=== PATIENT | male | born 1965 | race Caucasian/White ===

== ENCOUNTER 2020-06-24 10:25 | Outpatient (REF) | payer OTHER, SELFPAY ==
[2020-06-24 11:43] LABS: Hematocrit 39.9 % (42-52); Hemoglobin 13.5 g/dl (14.0-18.0); Mean Corpuscular HGB Conc 33.8 g/dl (31.0-36.0); Mean Corpuscular Hemoglobin 29.6 pg (27.0-33.0); Mean Corpuscular Volume 87.5 fL (80-98); Mean Platelet Volume 9.4 fL (9.4-12.4); Platelet Count 275 X10*3/uL (160-400); Red Blood Count 4.56 X10*6/uL (4.60-5.80); Red Cell Distribution Width 14.2 % (11.0-16.0)
[2020-06-24 12:18] LABS: Creatinine Urine 150.97 mg/dL; Microalbum/Creatinine Ratio Ur 4.6 ug/mg cr
[2020-06-24 12:21] LABS: Alanine Aminotransferase 22 U/L (0-40); Alkaline Phosphatase 124 U/L (39-117); Anion Gap 13 (12-20); Aspartate Amino Transferase 17 U/L (5-37); Bilirubin Total 0.7 mg/dL (0.0-1.0); Blood Urea Nitrogen 16 mg/dL (9-16); Calcium 8.6 mg/dL (8.4-10.2); Carbon Dioxide 27 mmol/L (22-29); Chloride 103 mmol/L (96-108); Cholesterol 155 mg/dL; Estimated Glomerular Filt Rate > 60; Glucose Fasting 99 mg/dL (60-99); HDL Cholesterol 47 mg/dL; LDL Cholesterol Calculated 77 mg/dl; Potassium 4.4 mmol/L (3.3-5.1); Sodium 139 mmol/L (135-145); Total Protein 7.2 g/dL (6.5-8.0); Triglycerides 157 mg/dL
[2020-06-24 12:23] LABS: Estimated Average Glucose 131 mg/dL; Hemoglobin A1c % 6.2 %
[2020-06-24 12:38] LABS: Prostate Specific Antigen Scr 0.22 ng/mL (<0.05-4.0); TSH reflex Free T4 3.52 mIU/mL (0.32-4.0)
== END 2020-06-24 10:26 | disposition home or self-care (01) ==
LOC: HO.LAB 10:25
PROVIDERS: PCP Physician Assistant; Visit Provider Physician Assistant
DX: E11.9 Type 2 diabetes mellitus without complications (principal); Z12.5 Encounter for screening for malignant neoplasm of prostate; I10 Essential (primary) hypertension
CPT/HCPCS: 36415; 80053; 80061; 82043; 83036; 84153; 84443; 85027

== ENCOUNTER → 2020-08-02 08:30 | Outpatient (BNVA) | payer OTHER, SELFPAY | PROVIDERS: PCP Physician Assistant; Visit Provider Surgery | DX: Z01.818 Encounter for other preprocedural examination (principal); E66.01 Morbid (severe) obesity due to excess calories; Z68.42 Body mass index [BMI] 45.0-49.9, adult; R06.02 Shortness of breath | CPT/HCPCS: 99202 ==

== ENCOUNTER 2020-08-02 11:04 | Outpatient (REF) | payer OTHER, SELFPAY ==
[2020-08-02 12:26] LABS: Hematocrit 41.3 % (42-52); Mean Corpuscular HGB Conc 33.9 g/dl (31.0-36.0); Mean Corpuscular Hemoglobin 29.7 pg (27.0-33.0); Mean Corpuscular Volume 87.7 fL (80-98); Mean Platelet Volume 9.7 fL (9.4-12.4); Platelet Count 302 X10*3/uL (160-400); Red Blood Count 4.71 X10*6/uL (4.60-5.80); Red Cell Distribution Width 13.6 % (11.0-16.0); White Blood Count 9.8 X10*3/uL (4.8-10.8)
[2020-08-02 13:12] LABS: Vitamin D 25-OH Total 41.3 ng/mL (>30)
[2020-08-02 13:29] LABS: Vitamin B12 461 pg/mL (200-900)
[2020-08-02 14:12] LABS: Estimated Average Glucose 128 mg/dL; Hemoglobin A1c % 6.1 %
[2020-08-02 14:41] LABS: TSH reflex Free T4 6.28 uIU/mL (0.32-4.0)
[2020-08-02 14:46] LABS: Alanine Aminotransferase 21 U/L (0-40); Albumin Level 4.2 g/dL (3.5-5.0); Alkaline Phosphatase 130 U/L (39-117); Anion Gap 17 (12-20); Aspartate Amino Transferase 16 U/L (5-37); Bilirubin Total 0.3 mg/dL (0.0-1.0); Blood Urea Nitrogen 17 mg/dL (9-16); Carbon Dioxide 23 mmol/L (22-29); Chloride 106 mmol/L (96-108); Cholesterol 138 mg/dL; Estimated Glomerular Filt Rate > 60; Glucose Fasting 105 mg/dL (60-99); HDL Cholesterol 43 mg/dL; Iron 82 mcg/dL (45-160); LDL Cholesterol Calculated 54 mg/dl; Percent Iron Saturation 32 % (15-50); Potassium 4.5 mmol/L (3.3-5.1); Sodium 141 mmol/L (135-145); Total Iron Binding Capacity 253 mcg/dL (228-428); Total Protein 7.6 g/dL (6.5-8.0); Triglycerides 205 mg/dL; Unsaturated Iron Binding 171 ug/dL
[2020-08-02 15:15] LABS: Free T4 (Free Thyroxine) 0.94 ng/dL (0.71-1.85)
[2020-08-05 00:47] LABS: Zinc 80 mcg/dL (60-130)
[2020-08-07 11:21] LABS: Vitamin B1 18 nmol/L (8-30)
[2020-08-08 03:32] LABS: Vitamin A 53 mcg/dL (38-98)
== END 2020-08-02 11:05 | disposition home or self-care (01) ==
LOC: HO.10HDL 11:04
PROVIDERS: Absent Provider Physician Assistant; Visit Provider Surgery
DX: Z01.818 Encounter for other preprocedural examination (principal); E11.9 Type 2 diabetes mellitus without complications; I10 Essential (primary) hypertension; E66.01 Morbid (severe) obesity due to excess calories
CPT/HCPCS: 36415; 80053; 80061; 82306; 82607; 83036; 83540; 84425; 84439; 84443; 84590; 84630; 85027

== ENCOUNTER → 2020-08-12 10:26 | Outpatient (BNVA) | payer OTHER, SELFPAY | PROVIDERS: PCP Physician Assistant; Visit Provider Dietitian, Registered ==

== ENCOUNTER → 2020-08-22 14:05 | Outpatient (BNVA) | payer OTHER, SELFPAY | PROVIDERS: PCP Physician Assistant; Visit Provider Surgery | DX: E66.01 Morbid (severe) obesity due to excess calories (principal); Z68.42 Body mass index [BMI] 45.0-49.9, adult | CPT/HCPCS: 99212 ==

== ENCOUNTER → 2020-12-12 12:32 | Outpatient (BNVA) | payer OTHER, SELFPAY | PROVIDERS: PCP Physician Assistant; Referring Provider Physician Assistant; Visit Provider Physician Assistant | DX: E66.01 Morbid (severe) obesity due to excess calories (principal); Z68.42 Body mass index [BMI] 45.0-49.9, adult | CPT/HCPCS: 99212 ==

== ENCOUNTER → 2021-01-09 08:32 | Outpatient (BNVA) | payer OTHER, SELFPAY | PROVIDERS: PCP Physician Assistant; Referring Provider Physician Assistant; Visit Provider Dietitian, Registered | DX: E66.01 Morbid (severe) obesity due to excess calories (principal); Z68.42 Body mass index [BMI] 45.0-49.9, adult | CPT/HCPCS: 97803 ==

== ENCOUNTER → 2021-02-27 09:24 | Outpatient (BNVA) | payer OTHER, SELFPAY | PROVIDERS: PCP Physician Assistant; Referring Provider Physician Assistant; Visit Provider Physician Assistant Surgical | DX: E66.01 Morbid (severe) obesity due to excess calories (principal); Z68.42 Body mass index [BMI] 45.0-49.9, adult | CPT/HCPCS: 99212 ==

== ENCOUNTER 2021-02-27 10:35 | Outpatient (REF) | payer OTHER, SELFPAY ==
[2021-02-27 14:11] LABS: MANUAL DIFF FLAG NO
[2021-02-27 14:16] LABS: Basophils Absolute Auto 0.1 X10*3/uL (0.0-0.2); Basophils Percent Auto 0.6 % (0-2); Eosinophils Absolute Auto 0.3 X10*3/uL (0.0-0.4); Eosinophils Percent Auto 3.1 % (0-4); Hemoglobin 13.6 g/dl (14.0-18.0); Imm Gran Abs Auto 0.09 X10*3/uL (0.00-0.03); Lymphocytes Absolute Auto 2.7 X10*3/uL (1.2-4.9); Lymphocytes Percent Auto 29.4 % (20-40); Mean Corpuscular HGB Conc 33.2 g/dl (31.0-36.0); Mean Corpuscular Hemoglobin 29.3 pg (27.0-33.0); Mean Corpuscular Volume 88.4 fL (80-98); Mean Platelet Volume 9.5 fL (9.4-12.4); Monocytes Absolute Auto 0.8 X10*3/uL (0.1-1.2); Neutrophils Absolute Auto 5.3 X10*3/uL (2.0-8.3); Neutrophils Percent Auto 56.9 % (45-73); Platelet Count 318 X10*3/uL (160-400); Red Blood Count 4.64 X10*6/uL (4.60-5.80); Red Cell Distribution Width 14.2 % (11.0-16.0); White Blood Count 9.3 X10*3/uL (4.8-10.8)
[2021-02-27 14:38] LABS: Alanine Aminotransferase 47 U/L (0-40); Albumin Level 4.1 g/dL (3.5-5.0); Anion Gap 14 (12-20); Aspartate Amino Transferase 26 U/L (5-37); C Reactive Protein 0.59 mg/dL (< or = 0.50); Carbon Dioxide 25 mmol/L (22-29); Chloride 105 mmol/L (96-108); Estimated Glomerular Filt Rate > 60; Potassium 4.8 mmol/L (3.3-5.1); Sodium 139 mmol/L (135-145)
[2021-02-27 14:48] LABS: Alkaline Phosphatase 115 U/L (39-117); Bilirubin Total 0.2 mg/dL (0.0-1.0); Blood Urea Nitrogen 15 mg/dL (9-16); Calcium 9.1 mg/dL (8.4-10.2); Cholesterol 179 mg/dL; Glucose Fasting 114 mg/dL (60-99); HDL Cholesterol 54 mg/dL; LDL Cholesterol Calculated 91 mg/dl; Total Protein 7.5 g/dL (6.5-8.0); Triglycerides 172 mg/dL
[2021-02-27 14:54] LABS: Erythrocyte Sedimentation Rate 31 MM/HR (0-15)
[2021-02-27 15:01] LABS: Creatinine Urine 185.77 mg/dL; Microalbum/Creatinine Ratio Ur 4.8 ug/mg cr
[2021-02-27 15:08] LABS: TSH reflex Free T4 2.92 uIU/mL (0.32-4.0)
== END 2021-02-27 10:36 | disposition home or self-care (01) ==
LOC: HO.10HDL 10:35
PROVIDERS: Absent Provider Internal Medicine; Visit Provider Physician Assistant
DX: Z51.81 Encounter for therapeutic drug level monitoring (principal); E03.9 Hypothyroidism, unspecified; Z79.899 Other long term (current) drug therapy
CPT/HCPCS: 36415; 80051; 80053; 80061; 82040; 82043; 82565; 84443; 84450; 84460; 85025; 85027; 85652; 86140

== ENCOUNTER → 2021-05-01 08:19 | Outpatient (BNVA) | payer OTHER, SELFPAY | PROVIDERS: PCP Physician Assistant; Visit Provider Physician Assistant Surgical ==

== ENCOUNTER 2022-01-23 10:48 | Outpatient (REF) | payer OTHER, SELFPAY ==
[2022-01-23 13:51] LABS: Hematocrit 45.9 % (42.0-52.0); Hemoglobin 15.2 g/dl (14.0-18.0); Mean Corpuscular HGB Conc 33.1 g/dl (31.0-36.0); Mean Corpuscular Hemoglobin 28.5 pg (27.0-33.0); Mean Corpuscular Volume 86.1 fL (80.0-98.0); Mean Platelet Volume 10.4 fL (9.4-12.4); Platelet Count 238 X10*3/uL (160-400); Red Blood Count 5.33 X10*6/uL (4.60-5.80); Red Cell Distribution Width 14.2 % (11.0-16.0); White Blood Count 8.8 X10*3/uL (4.8-10.8)
[2022-01-23 14:03] LABS: C Reactive Protein 0.41 mg/dL (< or = 0.50)
[2022-01-23 14:12] LABS: Alanine Aminotransferase 20 U/L (0-40); Albumin Level 4.1 g/dL (3.5-5.0); Alkaline Phosphatase 93 U/L (39-117); Anion Gap 17 (12-20); Aspartate Amino Transferase 15 U/L (5-37); Bilirubin Total 0.5 mg/dL (0.0-1.0); Blood Urea Nitrogen 15 mg/dL (9-16); Calcium 9.1 mg/dL (8.4-10.2); Carbon Dioxide 25 mmol/L (22-29); Chloride 103 mmol/L (96-108); Cholesterol 181 mg/dL; Estimated Glomerular Filt Rate > 60; Glucose Fasting 114 mg/dL (60-99); HDL Cholesterol 49 mg/dL; LDL Cholesterol Calculated 102 mg/dl; Potassium 4.6 mmol/L (3.3-5.1); Sodium 140 mmol/L (135-145); Total Protein 7.7 g/dL (6.5-8.0); Triglycerides 154 mg/dL
[2022-01-23 14:26] LABS: Prostate Specific Antigen Scr 0.22 ng/mL (<0.05-4.0); TSH reflex Free T4 2.34 uIU/mL (0.32-4.0)
[2022-01-23 14:27] LABS: Vitamin D 25-OH Total 31.4 ng/mL (>30)
[2022-01-23 14:37] LABS: Erythrocyte Sedimentation Rate 34 MM/HR (0-15)
[2022-01-23 14:56] LABS: Folate 14.7 ng/mL (> or = 4.0); Vitamin B12 352 pg/mL (200-900)
== END 2022-01-23 10:49 | disposition home or self-care (01) ==
LOC: HO.10HDL 10:48
PROVIDERS: Absent Provider Nurse Practitioner Family; Referring Provider Internal Medicine; Visit Provider Physician Assistant
DX: Z12.5 Encounter for screening for malignant neoplasm of prostate (principal); E11.9 Type 2 diabetes mellitus without complications; I10 Essential (primary) hypertension; Z79.899 Other long term (current) drug therapy
CPT/HCPCS: 36415; 80053; 80061; 82306; 82607; 82746; 84153; 84443; 85027; 85652; 86140

== ENCOUNTER 2022-03-13 08:46 | Outpatient (REF) | payer OTHER, SELFPAY ==
[2022-03-13 11:24] LABS: Hematocrit 42.7 % (42.0-52.0); Hemoglobin 14.4 g/dl (14.0-18.0); Mean Corpuscular HGB Conc 33.7 g/dl (31.0-36.0); Mean Corpuscular Hemoglobin 29.8 pg (27.0-33.0); Mean Corpuscular Volume 88.4 fL (80.0-98.0); Mean Platelet Volume 9.4 fL (9.4-12.4); Platelet Count 316 X10*3/uL (160-400); Red Blood Count 4.83 X10*6/uL (4.60-5.80); Red Cell Distribution Width 15.3 % (11.0-16.0); White Blood Count 9.8 X10*3/uL (4.8-10.8)
[2022-03-13 11:33] LABS: Estimated Average Glucose 151 mg/dL; Hemoglobin A1c % 6.9 %
[2022-03-13 12:01] LABS: Alanine Aminotransferase 19 U/L (0-40); Albumin Level 4.1 g/dL (3.5-5.0); Alkaline Phosphatase 93 U/L (39-117); Anion Gap 16 (12-20); Aspartate Amino Transferase 16 U/L (5-37); Bilirubin Total 0.7 mg/dL (0.0-1.0); Blood Urea Nitrogen 21 mg/dL (9-16); Calcium 9.1 mg/dL (8.4-10.2); Carbon Dioxide 25 mmol/L (22-29); Chloride 102 mmol/L (96-108); Estimated Glomerular Filt Rate > 60; Glucose Fasting 112 mg/dL (60-99); Potassium 4.4 mmol/L (3.3-5.1); Sodium 139 mmol/L (135-145); Total Protein 7.4 g/dL (6.5-8.0)
[2022-03-13 12:07] LABS: TSH reflex Free T4 2.53 uIU/mL (0.32-4.0)
[2022-03-13 12:44] LABS: Creatinine Urine 113.33 mg/dL; Microalbum/Creatinine Ratio Ur 11.4 ug/mg cr
== END 2022-03-13 08:47 | disposition home or self-care (01) ==
LOC: HO.10HDL 08:46
PROVIDERS: Visit Provider Physician Assistant
DX: E11.9 Type 2 diabetes mellitus without complications (principal); E03.9 Hypothyroidism, unspecified; I10 Essential (primary) hypertension
CPT/HCPCS: 36415; 80053; 82043; 83036; 84443; 85027

== ENCOUNTER → 2022-04-09 13:21 | Outpatient (BNVA) | payer OTHER, SELFPAY | PROVIDERS: PCP Physician Assistant; Visit Provider Surgery | DX: Z01.818 Encounter for other preprocedural examination (principal); L98.9 Disorder of the skin and subcutaneous tissue, unspecified | CPT/HCPCS: 99202 ==

== ENCOUNTER → 2022-05-10 08:41 | Outpatient (BNVA) | payer OTHER, SELFPAY | PROVIDERS: PCP Physician Assistant; Visit Provider Surgery | DX: L98.9 Disorder of the skin and subcutaneous tissue, unspecified (principal) | CPT/HCPCS: 11402 ==

== ENCOUNTER 2022-05-10 12:51 | Outpatient (REF) | payer OTHER, SELFPAY | END 2022-05-10 12:52 | disposition home or self-care (01) | LOC: HO.LNP 12:51 | PROVIDERS: Visit Provider Surgery | DX: L98.9 Disorder of the skin and subcutaneous tissue, unspecified (principal) | CPT/HCPCS: 88304 ==

== ENCOUNTER → 2022-05-24 08:48 | Outpatient (BNVA) | payer OTHER, SELFPAY | PROVIDERS: PCP Physician Assistant; Referring Provider Physician Assistant; Visit Provider Physician Assistant Surgical | DX: Z48.817 Encounter for surgical aftercare following surgery on the skin and subcutaneous tissue (principal); Z87.2 Personal history of diseases of the skin and subcutaneous tissue | CPT/HCPCS: 99212 ==

== ENCOUNTER 2023-02-15 08:54 | Outpatient (AMB) | payer OTHER, SELFPAY ==
[2023-02-15 09:01] VITALS: BP 132/80; PULSE 72; O2SAT 99; BMI 46.7
--- NOTE | 2023-02-15 09:01 | A.OFFPC_ITS ---
Vital Signs 02/15/23 09:01 Height 5 ft 8 in Weight 307 lb BMI 46.7 BP 132/80 Blood Pressure Location Lt brachial Position Sitting Pulse 72 Pulse Source Pulse Oximeter Temp Source Skin Pulse Oximetry (%) 99 Oxygen Delivery Method Room Air Intake Visit Reasons: Annual PE Intake Note: Patient is here today for a physical. Allergies Penicillins [PENICILLINS] Allergy (Severe, Verified 02/15/23 09:20) DIFFICULTY BREATHING Fish Containing Products Allergy (Intermediate, Verified 02/15/23 09:20) swollen Medication List - Last Reconciled 02/15/23 by VALERIA Arechiga atorvastatin 10 mg PO DAILY blood pressure test kit-large As directed blood sugar diagnostic (FreeStyle Lite Strips) As directed blood-glucose meter (FreeStyle Lite Meter kit) As directed bupropion HCl 100 mg PO QAM cholecalciferol (vitamin D3) 25 mcg PO DAILY dulaglutide (Trulicity) 0.75 mg (0.5 mL) subcut QWEEK etanercept mg subcut QWEEK folic acid 1 mg PO DAILY heating pads As directed hydroxyzine HCl 25 mg PO BID ibuprofen 600 mg PO Q8H PRN lancets (FreeStyle Lancets) As directed levothyroxine 25 mcg PO DAILY losartan 50 mg PO DAILY metformin 500 mg PO BID 90 days methotrexate sodium 15 mg PO QWEEK [id number] (Multivitamin 50 Plus tablet) 1 tab PO DAILY omeprazole 40 mg PO DAILY Tobacco use date assessed: 02/15/23 Dental Screening Dental Screen Date: 02/15/23 Did you have a dental visit in the last 12 months?: Yes Did you have a dental problem in the last 6 months where you did not have access to dental care?: No Was dental information given to patient?: Patient has dentist HPI Annual PE HPI Details Patient is a 57-year-old male who presents today for physical exam. Patient of PÉREZ Lay. medical history significant for morbid obesity, hypothyroidism, diabetes type 2, hypertension, psoriatic arthritis-followed by Rheumatology. Colonoscopy 2014 and repeat in 10 years. Patient will call for diabetic eye exam. He reports blood sugars at home less than 200. Dental exam up-to-date. Patient reports that he is compliant with medications and denies side effects. In addition, patient reports numbness in his feet worse in the morning for long time now. He also reports hard time to perform, able to sustain erection, reports fatigue, will check testosterone level. Denies shortness of breath or chest pain. Up-to-date with immunizations. Patient reports that he will be seeing orthopedics today for bilateral knee pain, reports receiving bilateral knee cortisone injections every 3 months. [facility] Medical History COVID-19 Skin lesion Type 2 diabetes mellitus Vitamin D deficiency Psoriasis Hypercholesterolemia Bipolar disorder Depression Rheumatoid arthritis LENNOX (generalized anxiety disorder) HTN (hypertension) DMII (diabetes mellitus, type 2) Surgical History History of sleeve gastrectomy History of right shoulder replacement H/O arthroscopy of knee History of colonoscopy Family History Father Diabetes Dialysis patient Mother Hypertension Heart problem Social History Housing: House Alcohol intake: never Patient Tobacco Use Status: Never used Tobacco Current occupational status: unemployed Cognitive needs: No Hearing needs: No Vision needs: Yes Questionnaire PHQ-9 Over the last 2 weeks, how often have you been bothered by any of the following problems? 1. Little interest or pleasure in doing things: not at all 2. Feeling down, depressed, or hopeless: not at all 3. Trouble falling or staying asleep, or sleeping too much: not at all 4. Feeling tired or having little energy: not at all 5. Poor appetite or overeating: not at all 6. Feeling bad about yourself - or that you are a failure or have let yourself or your family down: not at all 7. Trouble concentrating on things, such as reading the newspaper or watching television: not at all 8. Moving or speaking so slowly that other people could have noticed. Or the opposite - being so fidgety or restless that you have been moving around a lot more than usual: not at all 9. Thoughts that you would be better off or of hurting yourself in some way: not at all Total score: 0 Depression Screening Interpretation: Negative [id number] - PHQ-9 Billing: Yes Source: Developed by Drs. Geovany L. Andree Xie, [employer] malave nd colleagues, with an educational jackelyn from [employer]. Thrive Questionnaire Date Thrive assessed: 12/08/21 AUDIT C Alcohol Use Questionnaire (AUDIT-C) 1. How often do you have a drink containing alcohol?: Never 3. How often do you have six or more drinks on one occasion?: Never Total Score: 0 Score Reviewed/Action Taken: No LENNOX-7 AMB Questionnaire LENNOX-7 Date LENNOX - 7 assessed: 02/15/23 Feeling nervous, anxious, or on edge: 0 = Not at all Not being able to stop or control worryin = Not at all Worrying too much about different things: 0 = Not at all Trouble relaxin = Not at all Being so restless that it is hard to sit still: 0 = Not at all Becoming easily annoyed or irritable: 0 = Not at all Feeling afraid as if something awful might happen: 0 = Not at all Total LENNOX-7 score (0-4 normal; 5-9 mild; 10-14 moderate; 15-21 severe): 0 Source: Developed by Drs. Geovany Xie, Andree Anthony, [employer] Handley and colleagues, with an educational jackelyn from [employer]. LENNOX-7 Assessment Billing LENNOX-7 Assessment Tool: LENNOX-7 Assessment [id number] Review of Systems Const Denies body aches, Denies chills, Reports fatigue, Denies fever(s) and Denies headache(s) Eyes Denies change in vision ENT Denies dizziness, Denies otalgia, Denies headache(s), Denies nasal discharge, Denies sinus pain and Denies sore throat Card Denies chest pain, Denies edema, Denies lightheadedness and Denies dyspnea Resp Denies cough, Denies dyspnea and Denies wheezing GI Denies abdominal pain Denies hematuria and Denies dysuria Musc Denies myalgias, Reports numbness (Feet) and Denies tingling Skin/Breast Denies rash Neuro Denies dizziness, Denies headache(s), Reports numbness (Feet) and Denies tingling Endo Reports fatigue Aller/Immun Denies wheezing Physical exam (Primary Care) Vital Signs: Last Vital Signs Pulse 72 02/15/23 09:01 BP 132/80 02/15/23 09:01 Pulse Ox 99 02/15/23 09:01 Oxygen Delivery Method Room Air 02/15/23 09:01 BMI result Body Mass Index 46.7 Tobacco/Smoking Status: Tobacco use Status Tobacco use date assessed 02/15/23 02/15/23 09:06 Patient Tobacco Use Status Never used Tobacco 02/15/23 09:06 PHQ-9: PHQ-9 Score PHQ-9: Total score 0 02/15/23 09:17 Depression Screening Interpretation: Negative Thrive Assessment: Date of Thrive Assessment Date Thrive assessed 12/08/21 02/15/23 09:06 Const General: cooperative and no acute distress Orientation/consciousness: patient oriented x3 HENMT Head: Yes normocephalic and Yes atraumatic Ears: TM's normal bilaterally Face and sinus: Yes sinuses nontender Mouth: oropharynx normal and moist mucous membranes Throat: Yes posterior oropharynx normal Eyes General: appearance normal, both eyes and all related structures Pupils: Equal, round and reactive pupils present EOM: EOMs intact bilaterally Neck Neck: Yes normal visual inspection, Yes full ROM and Yes no lymphadenopathy Thyroid: Thyroid normal Resp Effort & Inspection: normal respiratory effort and able to speak in complete sentences Auscultation: clear to auscultation bilaterally, no crackles, no rales, no rhonchi and no wheezes Cardio Rate: regular rate Rhythm: regular rhythm Heart sounds: S1 normal heart sound present, S2 normal heart sound present and no murmurs GI Palpation (GI): Soft to palpation, not firm, nontender, no guarding, not rigid and no hepatosplenomegaly Auscultation: normal bowel sounds General: No CVA tenderness Back/Spine/Pelvis Back: No CVA tenderness Skin General skin exam: no rashes or lesions noted Neuro General: patient oriented x3 Cranial nerves: Yes Equal, round and reactive pupils present Gait exam (Neuro): Normal gait present Extrem General: Yes full ROM and No edema Results AMB Hemoglobin A1c AMB Hemoglobin A1c 6.8 % Last Edit by DEREK Thomas on 02/15/23 09:17 Results Reviewed Results Reviewed: Laboratory Last Values Hgb A1c (Clinic) 6.8 % (4.0-6.0) H 02/15/23 09:10 Assessment and Plan Assessment & Plan (1) HTN (hypertension): Code(s): I10 - Essential (primary) hypertension Qualifiers: Hypertension type: primary hypertension Qualified Code(s): I10 - Essential (primary) hypertension Plan: Goal BP equal or less than 140/90 Continue losartan (2) DMII (diabetes mellitus, type 2): Code(s): E11.9 - Type 2 diabetes mellitus without complications Qualifiers: Diabetes mellitus termite technician insulin use: without penitentiary use Diabetes mellitus complication status: without complication Qualified Code(s): E11.9 - Type 2 diabetes mellitus without complications Plan: A1c today 6.8 Low-carbohydrate diet Continue metformin and Trulicity Patient will call for diabetic eye exam (3) Morbid obesity with BMI of 45.0-49.9, adult: Code(s): E66.01 - Morbid (severe) obesity due to excess calories; Z68.42 - Body mass index [BMI] 45.0-49.9, adult Plan: Healthy food choices and exercise as tolerated Patient declined referrals to weight management or nutrition (4) Hypothyroidism: Code(s): E03.9 - Hypothyroidism, unspecified Qualifiers: Hypothyroidism type: unspecified Qualified Code(s): E03.9 - Hypothyroidism, unspecified Plan: Levothyroxine 25 mcg daily Encouraged patient to complete his blood work that was ordered by PCP (5) Depression: Code(s): F32.9 - Major depressive disorder, single episode, unspecified Plan: Continue to follow-up with psychiatrist and therapist Continue medications as prescribed by Psychiatry (6) Fatigue: Code(s): R53.83 - Other fatigue Plan: Blood work ordered Patient was also encouraged to complete his blood work that was ordered by his PCP (7) Neuropathy: Code(s): G62.9 - Polyneuropathy, unspecified Plan: Referral to podiatry Patient is to complete blood work (8) Annual physical exam: Code(s): Z00.00 - Encounter for general adult medical examination without abnormal findings Plan: Repeat in 1 year Plan Patient was encouraged to complete his blood work that was ordered by his PCP including PSA Orders: Orders Testosterone, Total Today R53.83 - Other fatigue AMB Hemoglobin A1c Today E11.9 - Type 2 diabetes mellitus without complications Vitamin D 25-OH Total Today R53.83 - Other fatigue Vitamin B12 and Folate Today R53.83 - Other fatigue Referrals Podiatry Referral G62.9 - Polyneuropathy, unspecified Coding Level of Care Code Est Pt Prev Care 40-64y(75791) Diagnoses Primary hypertension I10 Hypertension type: primary hypertension Type 2 diabetes mellitus without complication, without long-term current use of insulin E11.9 Diabetes mellitus penitentiary insulin use: without termite technician use Diabetes mellitus complication status: without complication Morbid obesity with BMI of 45.0-49.9, adult E66.01; Z68.42 Hypothyroidism, unspecified type E03.9 Hypothyroidism type: unspecified Depression F32.9 Fatigue R53.83 Neuropathy G62.9 Annual physical exam Z00.00 Additional Codes LENNOX-7 Assessment Billing - LENNOX-7 Assessment Tool: LENNOX-7 Assessment [id number] ([id number])
== END 2023-02-15 09:37 | disposition home or self-care (01) ==
PROVIDERS: PCP Physician Assistant; Visit Provider Nurse Practitioner Family
DX: Z00.00 Encounter for general adult medical examination without abnormal findings (principal); I10 Essential (primary) hypertension; E11.42 Type 2 diabetes mellitus with diabetic polyneuropathy; E66.01 Morbid (severe) obesity due to excess calories; Z68.42 Body mass index [BMI] 45.0-49.9, adult; E03.9 Hypothyroidism, unspecified; F32.9 Major depressive disorder, single episode, unspecified; G62.9 Polyneuropathy, unspecified; R53.83 Other fatigue
CPT/HCPCS: 83036; 99396

== ENCOUNTER 2023-07-22 09:41 | Outpatient (AMB) | payer OTHER, SELFPAY ==
[2023-07-22 09:57] VITALS: BP 152/84; PULSE 85; O2SAT 97; BMI 47.9
--- NOTE | 2023-07-22 09:57 | MHC.PC.OV ---
Vital Signs 07/22/23 09:57 Height 5 ft 8 in Weight 314 lb 13.121 oz BMI 47.9 BP 152/84 H Blood Pressure Location Lt brachial Position Sitting Pulse 85 Pulse Source Pulse Oximeter Pulse Oximetry (%) 97 Oxygen Delivery Method Room Air Intake Visit Reasons: post-op f/u Intake Note: Pt is here for Post-Op Left Knee Arthroplasty due to the left knee osteoarthritis/surgeon: Dr. Endy Parada. Natural Resource Manager Required: No Accompanied by: Self / Same As Patient Allergies Penicillins [PENICILLINS] Allergy (Severe, Verified 07/22/23 10:07) DIFFICULTY BREATHING Fish Containing Products Allergy (Intermediate, Verified 07/22/23 10:07) swollen Medication List - Last Reconciled 07/22/23 by Cruz Lay PA-C aspirin mg PO atorvastatin 10 mg PO DAILY blood pressure test kit-large As directed blood sugar diagnostic (FreeStyle Lite Strips) As directed blood-glucose meter (FreeStyle Lite Meter kit) As directed bupropion HCl 100 mg PO QAM celecoxib 200 mg PO DAILY cholecalciferol (vitamin D3) 25 mcg PO DAILY docusate sodium 100 mg PO BID dulaglutide (Trulicity) 0.75 mg (0.5 mL) subcut QWEEK etanercept mg subcut QWEEK folic acid 1 mg PO DAILY heating pads As directed hydromorphone 2 - 4 mg PO Q4H PRN hydroxyzine HCl 25 mg PO BID ibuprofen 600 mg PO Q8H PRN lancets (FreeStyle Lancets) As directed levothyroxine 25 mcg PO DAILY losartan 50 mg PO DAILY metformin 500 mg PO BID 90 days methotrexate sodium 15 mg PO QWEEK [id number] (Multivitamin 50 Plus tablet) 1 tab PO DAILY omeprazole 40 mg PO DAILY tramadol 50 - 100 mg PO Q6H PRN Tobacco use date assessed: 07/22/23 Dental Screening Dental Screen Date: 07/22/23 Did you have a dental visit in the last 12 months?: Yes Did you have a dental problem in the last 6 months where you did not have access to dental care?: No Was dental information given to patient?: Patient has dentist HPI post-op f/u HPI Details Chucky is a 57 year male here today for a follow-up visit. Patient recently underwent half total knee arthroplasty. Now in physical therapy ? Patient has past medical history significant for hypertension, depression, YARIEL, anxiety, history of cocaine abuse, psoriatic arthritis. He is now 1 month postop from total left knee arthroplasty and overall doing well. In some pain though was well managed with medication. Obesity: Does understand his BMI is over 40. Has gained some weight since last office visit.. Has been more inactive as of late due to recent knee replacement. ? .. ?? ? Depression/ anxiety:? Patient is followed by psychiatrist( [facility]) who prescribes his mental health medications.? He reports.? he recently went through severe depression roug has discontinued h t and the use of prazosin and Risperdal . .? He continues to work with his mental health therapist and a psychiatrist on his depression. ? .. ? Diabetes: Has been compliant with metformin and Trulicity. ? ? ? Most recent A1c and fasting blood sugar acceptable..? Has been able to lose weight since last office visit. PLAN: Will increase his Trulicity to 3 mg weekly for better glucose control and added benefit of weight loss. ? .. ? HTN:? Doesnt check his BP at home, blood pressure today in office acceptable.? Patient denies any chest discomfort, headaches or shortness of breath. Psoriatic arthritis:? He continues to follow Rheumatology. He feels his joint pains are much better manage since losing weight. Continues on injections of Embrel and weekly methotrexate.? .. Hypothyroidism:? Most recent TSH acceptable.? Will continue on current dose of low-dose levothyroxine. [facility] Medical History COVID-19 Skin lesion Type 2 diabetes mellitus Vitamin D deficiency Psoriasis Hypercholesterolemia Bipolar disorder Depression Rheumatoid arthritis LENNOX (generalized anxiety disorder) HTN (hypertension) DMII (diabetes mellitus, type 2) Surgical History History of sleeve gastrectomy History of right shoulder replacement H/O arthroscopy of knee History of colonoscopy Family History Father Diabetes Dialysis patient Mother Hypertension Heart problem Social History Housing: House Alcohol intake: never Patient Tobacco Use Status: Never used Tobacco Current occupational status: unemployed Cognitive needs: No Hearing needs: No Vision needs: Yes Questionnaire PHQ-9 Over the last 2 weeks, how often have you been bothered by any of the following problems? 1. Little interest or pleasure in doing things: not at all 2. Feeling down, depressed, or hopeless: not at all 3. Trouble falling or staying asleep, or sleeping too much: not at all 4. Feeling tired or having little energy: not at all 5. Poor appetite or overeating: not at all 6. Feeling bad about yourself - or that you are a failure or have let yourself or your family down: not at all 7. Trouble concentrating on things, such as reading the newspaper or watching television: not at all 8. Moving or speaking so slowly that other people could have noticed. Or the opposite - being so fidgety or restless that you have been moving around a lot more than usual: not at all 9. Thoughts that you would be better off or of hurting yourself in some way: not at all Total score: 0 Depression Screening Interpretation: Negative Depression Screening Done: Yes 19006 - PHQ-9 Billing: Yes Source: Developed by Drs. Geovany Xie, Andree Anthony, Kodak Handley and colleagues, with an educational jackelyn from [employer]. Thrive Questionnaire Date Thrive assessed: 07/22/23 I am a: Patient What is your living situation today?: I have a steady place to live Within the past 12 months, did the food you bought not last and you didn't have the money to get more?: Never true Within the past 12 months, did you worry whether your food would run out before you got money to buy more?: Never true Do you have trouble paying for medicines?: No Do you have trouble getting transportation to medical appointments?: No Do you have trouble paying your heating and electricity bill?: No Do you have trouble taking care of your child, family member or friend?: No Do you have trouble with day-to-day activities such as bathing, preparing meals, shopping, managing finances, etc.?: No Are you currently unemployed and looking for a job?: No Are you interested in more education?: No Please select the resources that you would like help with: None Currently or been in a relationship where the following occur: no concerns reported THRIVE Score: 0 AUDIT C Alcohol Use Questionnaire (AUDIT-C) 1. How often do you have a drink containing alcohol?: Never 3. How often do you have six or more drinks on one occasion?: Never Total Score: 0 Score Reviewed/Action Taken: No LENNOX-7 AMB Questionnaire LENNOX-7 Date LENNOX - 7 assessed: 07/22/23 Feeling nervous, anxious, or on edge: 0 = Not at all Not being able to stop or control worryin = Not at all Worrying too much about different things: 0 = Not at all Trouble relaxin = Not at all Being so restless that it is hard to sit still: 0 = Not at all Becoming easily annoyed or irritable: 0 = Not at all Feeling afraid as if something awful might happen: 0 = Not at all Total LENNOX-7 score (0-4 normal; 5-9 mild; 10-14 moderate; 15-21 severe): 0 Source: Developed by Drs. Geovany Xie, Andree Anthony, Kodak Handley and colleagues, with an educational jackelyn from [employer]. LENNOX-7 Assessment Billing LENNOX-7 Assessment Tool: LENNOX-7 Assessment [id number] Review of Systems Const Denies headache(s) Eyes Denies loss of vision ENT Denies vertigo, Denies dizziness, Denies headache(s) and Denies sore throat Card Denies chest pain, Denies leg edema and Denies lightheadedness Resp Denies cough, Denies hemoptysis and Denies wheezing GI Denies abdominal pain, Denies melena, Denies constipation, Denies diarrhea and Denies vomiting Denies dysuria, Denies urinary frequency and Denies urinary urgency Musc Denies arthralgias, Denies joint swelling, Denies numbness and Denies tingling Neuro Denies Abnormal speech present, Denies behavioral changes, Denies vertigo, Denies dizziness, Denies headache(s), Denies loss of vision, Denies memory loss, Denies numbness and Denies tingling Psych Denies anxiety, Denies behavioral changes, Denies depression, Denies memory loss and Denies panic attacks Lobo/Lymph Denies easy bleeding and Denies easy bruising Aller/Immun Denies wheezing Physical exam (Primary Care) Vital Signs: Last Vital Signs Pulse 85 07/22/23 09:57 BP 152/84 H 07/22/23 09:57 Pulse Ox 97 07/22/23 09:57 Oxygen Delivery Method Room Air 07/22/23 09:57 BMI result Body Mass Index 47.9 Tobacco/Smoking Status: Tobacco use Status Tobacco use date assessed 07/22/23 07/22/23 10:06 Patient Tobacco Use Status Never used Tobacco 07/22/23 09:57 PHQ-9: PHQ-9 Score PHQ-9: Total score 0 07/22/23 10:17 Depression Screening Interpretation: Negative Thrive Assessment: Date of Thrive Assessment Date Thrive assessed 07/22/23 07/22/23 10:15 Currently or been in a relationship where the following occur: no concerns reported Const General: healthy appearing, no acute distress, alert and awake Nutritional Appearance: well nourished Orientation/consciousness: oriented to person, oriented to place and oriented to time HENMT Ears: TM's normal bilaterally General nose exam: Normal nasal mucous membranes and turbinates present Eyes Conjunctivae: conjunctivae normal Sclerae: sclerae normal Pupils: Equal, round and reactive pupils present Neck Neck: Yes no lymphadenopathy and Yes no JVD Thyroid: Thyroid normal Carotids: no bruits Resp Effort & Inspection: normal respiratory effort and not tachypneic Auscultation: no crackles, no rales, no rhonchi and no wheezes Cardio Rate: regular rate Rhythm: regular rhythm Heart sounds: no murmurs and normal S1 and S2 GI Palpation (GI): Soft to palpation, nontender, no hepatomegaly and no splenomegaly Auscultation: normal bowel sounds Skin General skin exam: no rashes or lesions noted and dry skin Neuro General: oriented to person, oriented to place and oriented to time Cranial nerves: Yes Equal, round and reactive pupils present Speech: No Abnormal speech present Gait exam (Neuro): Normal gait present Motor exam (neuro): no tremor noted Extrem Right upper extremity: full ROM Left upper extremity: full ROM Right lower extremity: full ROM; no edema Left lower extremity: full ROM; no edema Ankle/foot/toe images: 1. MINIMAL DECREASED SENSATION TO LIGHT TOUCH. NO NOTABLE SKIN BREAKDOWN OR CALLUS FORMATIONS. NO NOTABLE ULCERATIONS TO THE ENTIRETY OF BILATERAL FEET Psych Mental Status: mental status grossly normal Speech and movement: Normal speech and movement present Affect: normal affect Attitude: cooperative Thought process: Normal thought process present Results AMB Hemoglobin A1c AMB Hemoglobin A1c 7.1 % Last Edit by GEORGE Sim on 07/22/23 10:17 Results Reviewed Results Reviewed: Laboratory Last Values Hgb A1c (Clinic) 7.1 % (4.0-6.0) H 07/22/23 09:50 Assessment and Plan Assessment & Plan (1) HTN (hypertension): Code(s): I10 - Essential (primary) hypertension Qualifiers: Hypertension type: primary hypertension Qualified Code(s): I10 - Essential (primary) hypertension Plan: Patient blood pressure acceptable today in office. Will continue amlodipine 10 mg goal blood pressure to be below 140/90 (2) Hypothyroidism: Code(s): E03.9 - Hypothyroidism, unspecified Qualifiers: Hypothyroidism type: unspecified Qualified Code(s): E03.9 - Hypothyroidism, unspecified Plan: Patient's most recent TSH stable. Will continue low-dose levothyroxine. (3) Morbid obesity with BMI of 45.0-49.9, adult: Code(s): E66.01 - Morbid (severe) obesity due to excess calories; Z68.42 - Body mass index [BMI] 45.0-49.9, adult Plan: Patient understands his BMI continues to be above 45. He has been working on being more physically active and going to water aerobics and has been able to lose 12 lb over the last 6 months. (4) DMII (diabetes mellitus, type 2): Code(s): E11.9 - Type 2 diabetes mellitus without complications Qualifiers: Diabetes mellitus complication status: without complication Diabetes mellitus termite control service representative insulin use: without termite control service representative use Qualified Code(s): E11.9 - Type 2 diabetes mellitus without complications Plan: Patient's type 2 diabetes well suboptimally controlled. Today's A1c is 7.1. Had to stay off of his diabetic medication before his total knee replacement Patient interested in more weight loss. Will increase his Trulicity to 3 mg daily Goal A1c is to be below 7.0 (5) Psoriasis: Code(s): L40.9 - Psoriasis, unspecified Plan: As per HPI patient continues to follow Rheumatology in [facility] joint pains are well managed. He is interested in establishing care with Rheumatology here in [place].. Continues on disease modifying drugs (6) Osteoarthritis of left knee: Code(s): M17.12 - Unilateral primary osteoarthritis, left knee Qualifiers: Osteoarthritis type: primary Qualified Code(s): M17.12 - Unilateral primary osteoarthritis, left knee Plan: He is status 1 month post left total knee arthroplasty. Orders: Orders AMB Hemoglobin A1c Today E11.9 - Type 2 diabetes mellitus without complications Microalbumin, Random (w Creat) Today I10 - Essential (primary) hypertension TSH reflex Free T4 Today E03.9 - Hypothyroidism, unspecified Comprehensive [place]. Panel Fast Today E11.9 - Type 2 diabetes mellitus without complications Complete Blood Count no Diff Today E11.9 - Type 2 diabetes mellitus without complications Lipid Panel Today E11.9 - Type 2 diabetes mellitus without complications Referrals Rheumatology Referral L40.9 - Psoriasis, unspecified Medications: New miscellaneous medical supply FOR DIABETIC SHOES 1 ea miscellaneous DAILY 99 days 2 ea 0RF E11.9 - Type 2 diabetes mellitus without complications dulaglutide (Trulicity) 3 mg (0.5 mL) subcut QWEEK 4 weeks 2 mL 3RF E11.9 - Type 2 diabetes mellitus without complications Discontinued dulaglutide (Trulicity) Discontinued Reason: Doctor's Order 0.75 mg (0.5 mL) subcut QWEEK 2 mL 6RF E11.9 - Type 2 diabetes mellitus without complications Coding Level of Care Code Est Pt Level 4 (15031) Diagnoses Primary hypertension I10 Hypertension type: primary hypertension Hypothyroidism, unspecified type E03.9 Hypothyroidism type: unspecified Morbid obesity with BMI of 45.0-49.9, adult E66.01; Z68.42 Type 2 diabetes mellitus without complication, without long-term current use of insulin E11.9 Diabetes mellitus complication status: without complication Diabetes mellitus termite control service representative insulin use: without alf use Psoriasis L40.9 Primary osteoarthritis of left knee M17.12 Osteoarthritis type: primary Additional Codes LENNOX-7 Assessment Billing - LENNOX-7 Assessment Tool: LENNOX-7 Assessment [id number] ([id number])
== END 2023-07-22 10:31 | disposition home or self-care (01) ==
PROVIDERS: PCP Physician Assistant; Visit Provider Physician Assistant
DX: E11.9 Type 2 diabetes mellitus without complications (principal); E66.01 Morbid (severe) obesity due to excess calories; Z68.42 Body mass index [BMI] 45.0-49.9, adult; I10 Essential (primary) hypertension; E03.9 Hypothyroidism, unspecified; L40.9 Psoriasis, unspecified; M17.12 Unilateral primary osteoarthritis, left knee
CPT/HCPCS: 83036; 99214

== ENCOUNTER 2023-08-21 13:49 | Outpatient (AMB) | payer OTHER, SELFPAY ==
[2023-08-21 14:03] VITALS: BP 130/80; PULSE 70; TEMP 36.1; O2SAT 97; BMI 47.9
--- NOTE | 2023-08-21 14:03 | MHC.OFFVIS ---
Intake Vital Signs 08/21/23 14:03 Height 5 ft 8 in Weight 315 lb BMI 47.9 BP 130/80 Blood Pressure Location Rt brachial Position Sitting Pulse 70 Pulse Source Pulse Oximeter Temp 97 F Temp Source Skin Pulse Oximetry (%) 97 Oxygen Delivery Method Room Air Intake Visit Reasons: psoriatic arthritis/CONFIRMED Intake Note: New patient, internally referred by PCP, presents today for PsA. Former patient of Dr. Hilliard Allergies Penicillins [PENICILLINS] Allergy (Severe, Verified 08/21/23 14:05) DIFFICULTY BREATHING Fish Containing Products Allergy (Intermediate, Verified 08/21/23 14:05) swollen HPI HPI Comments History of Present Illness Details Mr. Abarca 57 yoM is here, on PCP referral to transfer care. He has a history of PsO/PsA and takes Enbrel 50 mg QW prescribed by DERM. He skin has done fairly well on Enbrel but still has some patches to his scalp. He denies Uveitis. He uses a topical creme for small patches. He has been experiencing increased joint pains to hands and lower back. He has had multiple joint surgeries most recently the left knee replacement in [facility]20[facility] - still doing PT. Denies any challenges with rehab. [facility] Medical History (Updated 08/21/23 @ 14:27 by SAMMIE Hughes) Long-term use of immunosuppressant medication Screening examination for infectious disease Psoriatic arthritis COVID-19 Skin lesion Type 2 diabetes mellitus Vitamin D deficiency Psoriasis Hypercholesterolemia Bipolar disorder Depression Rheumatoid arthritis LENNOX (generalized anxiety disorder) HTN (hypertension) DMII (diabetes mellitus, type 2) Surgical History H/O knee surgery History of sleeve gastrectomy History of right shoulder replacement H/O arthroscopy of knee History of colonoscopy Family History Father Diabetes Dialysis patient Mother Hypertension Heart problem Social History Housing: House Alcohol intake: never Patient Tobacco Use Status: Never used Tobacco Current occupational status: unemployed Cognitive needs: No Hearing needs: No Vision needs: Yes Review of Systems Const All systems reviewed & are unremarkable except as noted in HPI and below Physical Exam Vital Signs: Last Vital Signs Temp 97 F 08/21/23 14:03 Pulse 70 08/21/23 14:03 BP 130/80 08/21/23 14:03 Pulse Ox 97 08/21/23 14:03 Oxygen Delivery Method Room Air 08/21/23 14:03 BMI result Body Mass Index 47.9 APPEARANCE: Patient in no acute distress EYES no redness, normal EARS:? External ear normal. NOSE/SINUS:? Airflow through both nares, no nasal discharge, no bleeding THROAT:? Oral mucosa moist, no ulcerations NECK:? No thyromegaly or masses, no adenopathy, trachea midline. HEART:? Regular rhythm, S1-S2 heard, no murmurs, rubs or gallops. LUNG:? Clear to percussion and auscultation EXTREMITIES:? No edema, no calf tenderness, normal peripheral pulses. NEURO:? Oriented and alert x3.? No focal weakness.? Reflexes symmetric.? Gait normal. SKIN:? small areas of Dry scaly patches to scalp. No objective signs of Raynaud's phenomenon. JOINT EXAM: Cervical Spine:.? Full range of motion without pain; no tenderness. Thoracic Spine:.? No scoliosis.? No tenderness on palpation. Lumbar Spine:.? mild tenderness on palpation Alignment normal.? Full range of motion without pain, no tenderness. Chest Wall:.? No tenderness, swelling, increased warmth or erythema. Hands:.? Normal pain-free range of motion without tenderness, swelling, increased warmth or erythema. Able to make a full fist and has a good narrative writer strength. Wrists:.? Normal pain-free range of motion without tenderness, swelling, increased warmth or erythema. Elbows:. Normal pain-free range of motion without tenderness, swelling, increased warmth or erythema. Shoulders:.?? Full ROM to Left Shoulder with some mild discomfort, but no tenderness, weakness, swelling, increased warmth or erythema. Right shoulder replacement Hips:.? Full range of motion without pain. Hip bursa:.? No tenderness. Knees:.?? Normal pain-free range of motion mild tenderness, but no swelling, increased warmth or erythema.? There is no effusion or crepitation: LEFT: Surgical car, Recent TKA Ankles:.? Normal pain-free range of motion without tenderness, swelling, increased warmth or erythema. Feet:.? Normal pain-free range of motion without tenderness, swelling, increased warmth or erythema. Tender points:? No tenderness to digital palpation at the occiput, trapezius, second rib, lateral epicondyle, knees, greater trochanter and gluteal area bilaterally. ? Assessment & Plan Assessment & Plan (1) Long-term use of immunosuppressant medication: Code(s): Z79.60 - halfway (current) use of unspecified immunomodulators and immunosuppressants (2) Psoriasis: Code(s): L40.9 - Psoriasis, unspecified (3) Psoriatic arthritis: Code(s): L40.50 - Arthropathic psoriasis, unspecified (4) Screening examination for infectious disease: Code(s): Z11.9 - Encounter for screening for infectious and parasitic diseases, unspecified Plan #PsO/PsA: Will continue Enbrel 50 mg QW. I think he could use a some additional help with his symtoms. Given increased joint pain and some persistent PsO to scalp, will prescribe MTX 6 pills QW and folic acid 1 mg QD. I will obtain some baseline labs and start PA for Enbrel #Correction Use; Patient has just restarted Enbrel x 1 week as he held held it for surgery. I spent 40 minutes reviewing history, evaluating patient and documenting. Orders: Orders C Reactive Protein 08/21/23 L40.50 - Arthropathic psoriasis, unspecified Comprehensive Met. Panel 08/21/23 L40.50 - Arthropathic psoriasis, unspecified Protein Electrophoresis, Serum 08/21/23 L40.50 - Arthropathic psoriasis, unspecified HLA B27 08/21/23 L40.50 - Arthropathic psoriasis, unspecified Rheumatoid Factor 08/21/23 L40.50 - Arthropathic psoriasis, unspecified T Spot TB 08/21/23 Z11.9 - Encounter for screening for infectious and parasitic diseases, unspecified Erythrocyte Sedimentation Rate 08/21/23 L40.50 - Arthropathic psoriasis, unspecified Immunoglobulins,IgG IgA IgM 08/21/23 L40.50 - Arthropathic psoriasis, unspecified Cyclic Citrullinated Peptide 08/21/23 L40.50 - Arthropathic psoriasis, unspecified Hepatitis A,B,C Profile 08/21/23 Z11.9 - Encounter for screening for infectious and parasitic diseases, unspecified Uric Acid 08/21/23 Z11.9 - Encounter for screening for infectious and parasitic diseases, unspecified Medications: New methotrexate sodium 15 mg (6 x 2.5 mg) PO QWEEK 72 tabs 1RF L40.9 - Psoriasis, unspecified, L40.50 - Arthropathic psoriasis, unspecified folic acid 1 mg PO DAILY 90 tabs 1RF Z79.60 - halfway (current) use of unspecified immunomodulators and immunosuppressants Coding Level of Care Code New Pt Level 4 (41020) Diagnoses Long-term use of immunosuppressant medication Z79.60 Psoriasis L40.9 Psoriatic arthritis L40.50 Screening examination for infectious disease Z11.9
== END 2023-08-21 14:39 | disposition home or self-care (01) ==
PROVIDERS: PCP Physician Assistant; Visit Provider Nurse Practitioner Family
DX: Z79.60 Long term (current) use of unspecified immunomodulators and immunosuppressants (principal); L40.9 Psoriasis, unspecified; L40.50 Arthropathic psoriasis, unspecified; Z11.9 Encounter for screening for infectious and parasitic diseases, unspecified
CPT/HCPCS: 99204

== ENCOUNTER → 2023-08-21 13:49 | Outpatient (BNVA) | payer OTHER, SELFPAY | PROVIDERS: PCP Physician Assistant; Visit Provider Nurse Practitioner Family | DX: L40.50 Arthropathic psoriasis, unspecified (principal); L40.9 Psoriasis, unspecified; M06.9 Rheumatoid arthritis, unspecified; Z11.9 Encounter for screening for infectious and parasitic diseases, unspecified; Z96.652 Presence of left artificial knee joint; Z79.60 Long term (current) use of unspecified immunomodulators and immunosuppressants; Z96.611 Presence of right artificial shoulder joint | CPT/HCPCS: 99202 ==

== ENCOUNTER 2023-12-06 08:52 | Outpatient (REF) | payer OTHER, SELFPAY ==
[2023-12-06 11:18] LABS: Rheumatoid Factor < 13.0 IU/mL (<15.0)
[2023-12-06 11:24] LABS: Alanine Aminotransferase 15 U/L (0-40); Alkaline Phosphatase 100 U/L (39-117); Anion Gap 13 (12-20); Aspartate Amino Transferase 14 U/L (5-37); Bilirubin Total 0.5 mg/dL (0.0-1.0); Blood Urea Nitrogen 21 mg/dL (9-16); C Reactive Protein 0.54 mg/dL (< or = 0.50); Calcium 9.5 mg/dL (8.4-10.2); Carbon Dioxide 25 mmol/L (22-29); Chloride 105 mmol/L (96-108); Cholesterol 179 mg/dL (<200); Estimated Glomerular Filt Rate > 60; Glucose Fasting 122 mg/dL (60-99); Glucose Random 122 mg/dL (60-115); HDL Cholesterol 45 mg/dL (>40); LDL Cholesterol Calculated 113 mg/dL (<100); Potassium 4.1 mmol/L (3.3-5.1); Sodium 139 mmol/L (135-145); Total Protein 7.3 g/dL (6.5-8.0); Triglycerides 105 mg/dL (<150); Uric Acid 5.9 mg/dL (3.4-7.0)
[2023-12-06 11:36] LABS: Hematocrit 40.2 % (42.0-52.0); Hemoglobin 13.6 g/dl (14.0-18.0); Mean Corpuscular HGB Conc 33.8 g/dl (31.0-36.0); Mean Corpuscular Volume 88.5 fL (80.0-98.0); Mean Platelet Volume 9.6 fL (9.4-12.4); Platelet Count 302 X10*3/uL (160-400); Red Blood Count 4.54 X10*6/uL (4.60-5.80); Red Cell Distribution Width 15.9 % (11.0-16.0); White Blood Count 7.1 X10*3/uL (4.8-10.8)
[2023-12-06 11:40] LABS: HBS Num1 0.41 mIU/mL (0-7.99); HBc Num1 0.12 S/CO (0.00-0.79); HBsAGNum1 0.28 S/CO (0.00-0.99); Hepatitis A Antibody IgM 0.23 Index (0-0.79); Hepatitis B Core Antibody Nonreactive (Nonreactive); Hepatitis B Surface Antigen Negative (Negative); TSH reflex Free T4 1.51 uIU/mL (0.32-4.0); ~HepC Num1 0.07 S/CO (0.00-0.79); ~Hepatitis A Antibody IgM Nonreactive (Nonreactive); ~Hepatitis B Surface Antibody NONREACTIVE (Nonreactive); ~Hepatitis C Antibody Nonreactive (Nonreactive)
[2023-12-06 12:17] LABS: Creatinine Urine 159.05 mg/dL
[2023-12-06 12:27] LABS: Erythrocyte Sedimentation Rate 20 MM/HR (0-15)
[2023-12-09 00:04] LABS: TS Negative Control Passed; TS Panel A 2; TS Panel B 0; TS Positive Control Passed; TSpotTB Negative (Negative)
[2023-12-09 17:48] LABS: IgA 375 mg/dL (47-310); IgG 1253 mg/dL (600-1640); IgM 76 mg/dL (50-300)
[2023-12-09 22:23] LABS: Cyclic Citrullinated Peptide <16 UNITS
[2023-12-10 21:49] LABS: Prot Elec - Albumin 3.8 g/dL (3.8-4.8); Prot Elec - Alpha1 0.3 g/dL (0.2-0.3); Prot Elec - Alpha2 0.8 g/dL (0.5-0.9); Prot Elec - Beta 1 0.5 g/dL (0.4-0.6); Prot Elec - Beta 2 0.5 g/dL (0.2-0.5); Prot Elec - Gamma 1.1 g/dL (0.8-1.7)
[2023-12-11 12:33] LABS: HLA B27 Negative (Negative)
== END 2023-12-06 08:53 | disposition home or self-care (01) ==
LOC: HO.10HDL 08:52
PROVIDERS: Physician Assistant; Visit Provider Nurse Practitioner Family
DX: Z11.9 Encounter for screening for infectious and parasitic diseases, unspecified (principal); L40.50 Arthropathic psoriasis, unspecified; E03.9 Hypothyroidism, unspecified; E11.9 Type 2 diabetes mellitus without complications; I10 Essential (primary) hypertension
CPT/HCPCS: 36415; 80053; 80061; 82043; 82570; 82784; 84165; 84443; 84550; 85027; 85652; 86140; 86200; 86431; 86481; 86704; 86706; 86709; 86803; 86812; 87340

== ENCOUNTER 2024-02-19 08:19 | Outpatient (AMB) | payer OTHER, SELFPAY ==
--- NOTE | 2024-02-19 08:27 | MHC.PC.OV ---
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: No Accompanied by: Self / Same As Patient Allergies Penicillins [PENICILLINS] Allergy (Severe, Verified 02/19/24 08:41) DIFFICULTY BREATHING Fish Containing Products Allergy (Intermediate, Verified 02/19/24 08:41) swollen Medication List - Last Reconciled 02/19/24 by Cruz Lay PA-C aspirin mg PO atorvastatin 20 mg PO DAILY 90 days blood pressure test kit-large As directed blood sugar diagnostic (FreeStyle Lite Strips) As directed blood-glucose meter (FreeStyle Lite Meter kit) As directed bupropion HCl SR 100 mg PO QAM celecoxib 200 mg PO DAILY cholecalciferol (vitamin D3) 25 mcg PO DAILY docusate sodium 100 mg PO BID Enbrel SureClick (etanercept) 50 mg subcut QWEEK NS folic acid 1 mg PO DAILY heating pads As directed ibuprofen 600 mg PO Q8H PRN lancets (FreeStyle Lancets) As directed levothyroxine 25 mcg PO DAILY losartan 50 mg PO DAILY metformin 500 mg PO BID methotrexate sodium 15 mg (6 x 2.5 mg) PO QWEEK miscellaneous medical supply 1 ea miscellaneous DAILY 99 days [id number]-toglsj (Multivitamin 50 Plus tablet) 1 tab PO DAILY omeprazole 40 mg PO DAILY semaglutide (Ozempic) 0.5 mg (0.736 mL) subcut QWEEK 4 weeks tramadol 50 - 100 mg PO Q6H PRN Tobacco use date assessed: 07/22/23 Dental Screening Dental Screen Date: 07/22/23 HPI PE HPI Details Chucky is a 58 year male here today for a follow-up visit. ? Patient has past medical history significant for hypertension, depression, YARIEL, anxiety, history of cocaine abuse, psoriatic arthritis. Obesity: Does understand his BMI is over 40. Has lost a little bit of weight since last office visit, he does report being physically active and has been watching his diet. He is discouraged by the lack of progress he is making on his weight loss journey. He is interested in increasing his Ozempic to 1 mg weekly ? .. ?? ? Depression/ anxiety:? Patient is followed by psychiatrist( [facility]) who prescribes his mental health medications.? He reports.? he recently went through severe depression roug has discontinued h t and the use of prazosin and Risperdal . .? He continues to work with his mental health therapist and a psychiatrist on his depression. ? .. ? Diabetes: Has been compliant with metformin a 1000 mg b.i.d. and Ozempic. ? ? ? Most recent A1c and fasting blood sugar acceptable..? Has been able to lose weight since last office visit. PLAN: Will increase his Ozempic to 1 mg weekly for added benefit of weight loss and better glycemic control. ? .. ? HTN:? Doesnt check his BP at home, blood pressure today in office acceptable.? Patient denies any chest discomfort, headaches or shortness of breath. Psoriatic arthritis:? He continues to follow Rheumatology. 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 Continues on injections of Embrel and weekly methotrexate.? .. Hypothyroidism:? Most recent TSH acceptable.? He has not been taking levothyroxine. Will continue to hold levothyroxine and check TSH to assure stable.. Colonoscopy: Done 2015 at [facility] repeat 10 years . Vaccine: Up-to-date with tetanus, up-to-date with pneumonia. Has gotten COVID vaccine. [facility] Medical History Long-term use of immunosuppressant medication Screening examination for infectious disease Psoriatic arthritis COVID-19 Skin lesion Type 2 diabetes mellitus Vitamin D deficiency Psoriasis Hypercholesterolemia Bipolar disorder Depression Rheumatoid arthritis LENNOX (generalized anxiety disorder) HTN (hypertension) DMII (diabetes mellitus, type 2) Surgical History H/O knee surgery History of sleeve gastrectomy History of right shoulder replacement H/O arthroscopy of knee History of colonoscopy Family History Father Diabetes Dialysis patient Mother Hypertension Heart problem Social History Housing: House Alcohol intake: never Patient Tobacco Use Status: Never used Tobacco e-Cigarette/Vaping Use: Never Used Second Hand Smoke Exposure: No service: No Current occupational status: unemployed Cognitive needs: No Hearing needs: No Vision needs: Yes Questionnaire Thrive Questionnaire Date Thrive assessed: 07/22/23 LENNOX-7 AMB Questionnaire LENNOX-7 Date LENNOX - 7 assessed: 07/22/23 Source: Developed by Drs. Geovany Xie, Andree Anthony, [employer] Handley and colleagues, with an educational jackelyn from [email or web address]. Review of Systems Const Denies body aches, Denies chills, Denies excessive sweating, Denies fatigue, Denies fever(s) and Denies headache(s) Eyes Denies blurry vision ENT Denies dysphagia, Denies vertigo, Denies dizziness, Denies headache(s), Denies hearing loss and Denies tinnitus Card Denies chest pain, Denies chest pain with activity, Denies syncope, Denies irregular heart rhythm and Denies dyspnea Resp Denies chest congestion, Denies cough, Denies hemoptysis, Denies dyspnea and Denies wheezing GI Denies abdominal pain, Denies melena, Denies hematochezia, Denies coffee ground emesis, Denies dysphagia, Denies diarrhea, Denies nausea and Denies vomiting Denies difficulty urinating, Denies dysuria, Denies urinary frequency, Denies urinary hesitancy and Denies urinary urgency Musc Denies arthralgias, Denies limited range of motion, Denies muscle cramps and Denies muscle weakness Skin/Breast Denies rash and Denies skin ulcer Neuro Denies Abnormal speech present, Denies confusion, Denies vertigo, Denies dizziness, Denies syncope, Denies headache(s), Denies memory loss and Denies seizure-like activity Psych Denies anxiety, Denies confusion, Denies depression, Denies memory loss, Denies panic attacks and Denies paranoia Endo Denies excessive sweating, Denies fatigue, Denies flushing, Denies polydipsia and Denies polyuria Aller/Immun Denies wheezing Physical exam (Primary Care) Vital Signs: Last Vital Signs BP 118/78 02/19/24 08:28 BMI result Body Mass Index 47.3 Tobacco/Smoking Status: Tobacco use Status Tobacco use date assessed 07/22/23 02/19/24 08:33 Patient Tobacco Use Status Never used Tobacco 02/19/24 08:33 e-Cigarette/Vaping Use Never Used 02/19/24 08:33 Thrive Assessment: Date of Thrive Assessment Date Thrive assessed 07/22/23 02/19/24 08:33 Const General: cooperative, comfortable, no acute distress, alert and awake; No confusion Orientation/consciousness: oriented to person, oriented to place, patient oriented x3 and No confusion HENMT Head: Yes normocephalic Ears: external ears normal and TM's normal bilaterally Face and sinus: No sinus tenderness Mouth: Normal oral and palatal mucosa present and tongue normal Teeth and gingiva: dentition normal and gingiva normal Throat: Yes posterior oropharynx normal, Yes tonsils normal and Yes uvula midline Eyes Conjunctivae: conjunctivae normal Sclerae: sclerae normal Pupils: Equal, round and reactive pupils present EOM: EOMs intact bilaterally Direct Ophthalmoscopy: No no photophobia Neck Neck: Yes no lymphadenopathy, No tender and Yes no JVD Thyroid: Thyroid normal Carotids: no bruits Chest Chest palpation & inspection: no tenderness Resp Effort & Inspection: normal respiratory effort, no audible wheezes, not labored and no stridor Auscultation: no crackles, no rales, no rhonchi and no wheezes Cardio Jugular venous distension: no JVD Rate: regular rate, not bradycardic and not tachycardic Rhythm: regular rhythm Bruits: no carotid bruits Peripheral pulses: Peripheral pulses 2+ throughout GI Inspection: Yes normal to inspection, No abdominal wall ecchymosis and No visible herniation Palpation (GI): Soft to palpation, nontender, no guarding, not rigid and No hepatosplenomegaly present Auscultation: normoactive bowel sounds General: Yes no CVA tenderness Back/Spine/Pelvis Back: no CVA tenderness and No back tenderness Cervical Spine: cervical ROM normal Thoracic/Lumbar Spine: thoracic and lumbar spine normal to inspection, straight leg raise negative bilaterally, No thoraco-lumbar ROM limited and No lumbar spinal tenderness Skin Lesions: no lesions Rashes: no rashes Wounds: no wounds Neuro General: oriented to person, oriented to place, patient oriented x3, CN's II-XI intact bilaterally and No confusion Cranial nerves: Yes Equal, round and reactive pupils present and Yes Normal accommodation reflex present Cognition (Neuro): normal cognition Speech: No Abnormal speech present Gait exam (Neuro): Normal gait present Motor exam (neuro): 5/5 motor strength present throughout Extrem Right upper extremity: full ROM; no cyanosis Left upper extremity: full ROM; no cyanosis Right lower extremity: no edema Left lower extremity: no edema Psych Appearance: grossly normal Mental Status: mental status grossly normal Affect: normal affect Attitude: cooperative Thought process: Normal thought process present Results AMB Hemoglobin A1c AMB Hemoglobin A1c 6.3 % Last Edit by DEREK Osman on 02/19/24 08:58 Assessment and Plan Assessment & Plan (1) Annual physical exam: Code(s): Z00.00 - Encounter for general adult medical examination without abnormal findings (2) Keratosis: Code(s): L57.0 - Actinic keratosis Plan: Has noted a rough textured raised skin lesion over his scalp. Appears to be a keratosis though would like to see Dermatology for evaluation (3) HTN (hypertension): Code(s): I10 - Essential (primary) hypertension Qualifiers: Hypertension type: primary hypertension Qualified Code(s): I10 - Essential (primary) hypertension Plan: Patient blood pressure acceptable today in office. Will continue amlodipine 10 mg goal blood pressure to be below 140/90 (4) Hypothyroidism: Code(s): E03.9 - Hypothyroidism, unspecified Qualifiers: Hypothyroidism type: unspecified Qualified Code(s): E03.9 - Hypothyroidism, unspecified Plan: Patient has not been using levothyroxine. Most recent TSH was stable. Will recheck TSH in if stable will keep him off levothyroxine. (5) Morbid obesity with BMI of 45.0-49.9, adult: Code(s): E66.01 - Morbid (severe) obesity due to excess calories; Z68.42 - Body mass index [BMI] 45.0-49.9, adult Plan: Patient understands his BMI continues to be above 45. He has a history of a gastric sleeve. He would like to see bariatric surgeon again as he is not lost much weight. He will increase his Ozempic to 1 mg weekly. (6) DMII (diabetes mellitus, type 2): Code(s): E11.9 - Type 2 diabetes mellitus without complications Qualifiers: Diabetes mellitus termite exterminator insulin use: without termite exterminator use Diabetes mellitus complication status: without complication Qualified Code(s): E11.9 - Type 2 diabetes mellitus without complications Plan: Patient's type 2 diabetes well controlled. Today's A1c is 6.3. . 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 He is interested in establishing care with Rheumatology here in [place].. Continues on disease modifying drugs -methotrexate along with folic acid (8) Osteoarthritis of left knee: Code(s): M17.12 - Unilateral primary osteoarthritis, left knee Qualifiers: Osteoarthritis type: primary Qualified Code(s): M17.12 - Unilateral primary osteoarthritis, left knee Plan: Patient did have left knee replacement last year. Continues to have right knee pain. Does follow orthopedic surgeon whom gives him cortisone injections. He is considering right knee replacement. (9) HLD (hyperlipidemia): Code(s): E78.5 - Hyperlipidemia, unspecified Qualifiers: Hyperlipidemia type: mixed hyperlipidemia Qualified Code(s): E78.2 - Mixed hyperlipidemia Plan: Recent lipid panel showing slightly elevated LDL at 113.. Recently increased his atorvastatin to 20 mg. Will recheck lipid panel with goal LDL to be below 100 Orders: Orders Comprehensive [place]. Panel Fast Today E11.9 - Type 2 diabetes mellitus without complications Complete Blood Count no Diff Today E11.9 - Type 2 diabetes mellitus without complications TSH reflex Free T4 Today E03.9 - Hypothyroidism, unspecified AMB Hemoglobin A1c Today E11.9 - Type 2 diabetes mellitus without complications Microalbumin, Random (w Creat) Today I10 - Essential (primary) hypertension Hemoglobin A1c Today E11.9 - Type 2 diabetes mellitus without complications Lipid Panel Today E78.5 - Hyperlipidemia, unspecified Referrals Dermatology Referral L57.0 - Actinic keratosis Bariatric Surgery Referral Z68.42 - Body mass index [BMI] 45.0-49.9, adult Medications: New semaglutide (Ozempic) 1 mg (0.75 mL) subcut QWEEK 90 days 9.75 mL 2RF E11.9 - Type 2 diabetes mellitus without complications acetaminophen ER (Tylenol Arthritis Pain) 650 mg PO Q12H 90 days 180 tabs 1RF L40.50 - Arthropathic psoriasis, unspecified, M19.90 - Unspecified osteoarthritis, unspecified site Changed From cholecalciferol (vitamin D3) 25 mcg PO DAILY 30 tabs 0RF R53.83 - Other fatigue To cholecalciferol (vitamin D3) 25 mcg PO DAILY 90 days 90 tabs 1RF R53.83 - Other fatigue From metformin 500 mg PO BID 180 tabs 1RF E11.9 - Type 2 diabetes mellitus without complications To metformin 1,000 mg (2 x 500 mg) PO BID 90 days 360 tabs 1RF E11.9 - Type 2 diabetes mellitus without complications From tramadol 50 mg PO Q6H PRN moderate pain M67.912 - Unspecified disorder of synovium and tendon, left shoulder To tramadol 50 mg PO Q6H 7 days PRN 28 tabs 0RF moderate pain M67.912 - Unspecified disorder of synovium and tendon, left shoulder Refilled losartan 50 mg PO DAILY 90 tabs 2RF omeprazole 40 mg PO DAILY 90 caps 2RF atorvastatin 20 mg PO DAILY 90 days 90 tabs 1RF E78.5 - Hyperlipidemia, unspecified folic acid 1 mg PO DAILY 90 tabs 1RF Z79.60 - manager intermediate (current) use of unspecified immunomodulators and immunosuppressants metformin 500 mg PO BID 180 tabs 1RF E11.9 - Type 2 diabetes mellitus without complications Discontinued semaglutide (Ozempic) for 4 weeks Discontinued Reason: Doctor's Order 0.5 mg (0.736 mL) subcut QWEEK 4 weeks 3 mL 2RF E11.9 - Type 2 diabetes mellitus without complications On Hold levothyroxine Hold Comment: Doctor's Order 25 mcg PO DAILY 90 tabs 1RF E03.9 - Hypothyroidism, unspecified Patient Instructions: Goal: A1c to be below 7.0, LDL to be below 100 Barriers: Adherence to physical activity and healthy eating habits Coding Level of Care Code Est Pt Prev Care 40-64y(89209) Diagnoses Annual physical exam Z00.00 Keratosis L57.0 Primary hypertension I10 Hypertension type: primary hypertension Hypothyroidism, unspecified type E03.9 Hypothyroidism type: unspecified Morbid obesity with BMI of 45.0-49.9, adult E66.01; Z68.42 Type 2 diabetes mellitus without complication, without long-term current use of insulin E11.9 Diabetes mellitus retirement insulin use: without termite exterminator use Diabetes mellitus complication status: without complication Psoriasis L40.9 Primary osteoarthritis of left knee M17.12 Osteoarthritis type: primary Mixed hyperlipidemia E78.2 Hyperlipidemia type: mixed hyperlipidemia
[2024-02-19 08:28] VITALS: BP 118/78; BMI 47.3
== END 2024-02-19 09:02 | disposition home or self-care (01) ==
PROVIDERS: PCP Physician Assistant; Visit Provider Physician Assistant
DX: Z00.00 Encounter for general adult medical examination without abnormal findings (principal); E66.01 Morbid (severe) obesity due to excess calories; Z68.42 Body mass index [BMI] 45.0-49.9, adult; L57.0 Actinic keratosis; I10 Essential (primary) hypertension; E03.9 Hypothyroidism, unspecified; E11.9 Type 2 diabetes mellitus without complications; L40.9 Psoriasis, unspecified; M17.12 Unilateral primary osteoarthritis, left knee; E78.2 Mixed hyperlipidemia

== ENCOUNTER → 2024-02-19 08:19 | Outpatient (BNVA) | payer OTHER, SELFPAY | PROVIDERS: PCP Physician Assistant; Visit Provider Physician Assistant | DX: Z00.01 Encounter for general adult medical examination with abnormal findings (principal); E11.9 Type 2 diabetes mellitus without complications; E66.01 Morbid (severe) obesity due to excess calories; Z68.42 Body mass index [BMI] 45.0-49.9, adult; E03.9 Hypothyroidism, unspecified; I10 Essential (primary) hypertension; L57.0 Actinic keratosis; L40.9 Psoriasis, unspecified; M17.12 Unilateral primary osteoarthritis, left knee; E78.2 Mixed hyperlipidemia; Z71.3 Dietary counseling and surveillance; Z79.85 Long-term (current) use of injectable non-insulin antidiabetic drugs | CPT/HCPCS: 83036; 99396 ==

== ENCOUNTER 2024-03-17 07:43 | Outpatient (AMB) | payer OTHER, SELFPAY ==
--- NOTE | 2024-03-17 07:49 | MHC.OFFVIS ---
Vital Signs 03/17/24 07:53 Height 5 ft 8 in Weight 314 lb 9.594 oz BMI 47.8 BP 120/78 Blood Pressure Location Lt brachial Position Sitting Pulse 76 Pulse Source Pulse Oximeter Pulse Oximetry (%) 97 Oxygen Delivery Method Room Air Intake Visit Reasons: PSO Intake Note: Patient presents for PSO. Allergies Penicillins [PENICILLINS] Allergy (Severe, Verified 03/17/24 07:52) DIFFICULTY BREATHING Fish Containing Products Allergy (Intermediate, Verified 03/17/24 07:52) swollen Medication List - Last Reconciled 03/17/24 by Rupinder Gomez MD acetaminophen ER (Tylenol Arthritis Pain) 650 mg PO Q12H 90 days atorvastatin 20 mg PO DAILY 90 days blood pressure test kit-large As directed blood sugar diagnostic (FreeStyle Lite Strips) As directed blood-glucose meter (FreeStyle Lite Meter kit) As directed bupropion HCl SR 100 mg PO QAM cholecalciferol (vitamin D3) 25 mcg PO DAILY 90 days Enbrel SureClick (etanercept) 50 mg subcut QWEEK NS folic acid 1 mg PO DAILY heating pads As directed ibuprofen 600 mg PO Q8H PRN lancets (FreeStyle Lancets) As directed levothyroxine 25 mcg PO DAILY losartan 50 mg PO DAILY metformin 1,000 mg (2 x 500 mg) PO BID 90 days methotrexate sodium 15 mg (6 x 2.5 mg) PO QWEEK miscellaneous medical supply 1 ea miscellaneous DAILY 99 days [id number]-amtoyuwe-coxlaw (Multivitamin 50 Plus tablet) 1 tab PO DAILY omeprazole 40 mg PO DAILY semaglutide (Ozempic) 1 mg (0.75 mL) subcut QWEEK 90 days tramadol 50 mg PO Q6H PRN 7 days HPI Comments Details: This is a 58-year-old male with psoriasis and psoriatic arthritis who presents for follow-up. He states that he has been on Enbrel and methotrexate for years. He states that he feels about the same overall. Continues to have small patches on his elbows. Not particularly bothersome. He states that intermittent locking of his index fingers especially with working. 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 He also gets pain at base of his thumbs. Denies any swollen joints. [facility] Medical History Long-term use of immunosuppressant medication Screening examination for infectious disease Psoriatic arthritis COVID-19 Skin lesion Type 2 diabetes mellitus Vitamin D deficiency Psoriasis Hypercholesterolemia Bipolar disorder Depression Rheumatoid arthritis LENNOX (generalized anxiety disorder) HTN (hypertension) DMII (diabetes mellitus, type 2) Surgical History H/O knee surgery History of sleeve gastrectomy History of right shoulder replacement H/O arthroscopy of knee History of colonoscopy Family History Father Diabetes Dialysis patient Mother Hypertension Heart problem Social History Housing: House Alcohol intake: never Patient Tobacco Use Status: Never used Tobacco e-Cigarette/Vaping Use: Never Used Second Hand Smoke Exposure: No service: No Current occupational status: unemployed Cognitive needs: No Hearing needs: No Vision needs: Yes Review of Systems Musc Reports arthralgias and Denies joint swelling Skin/Breast Reports lesions and Reports rash Physical Exam Vital Signs: Last Vital Signs Pulse 76 03/17/24 07:53 BP 120/78 03/17/24 07:53 Pulse Ox 97 03/17/24 07:53 Oxygen Delivery Method Room Air 03/17/24 07:53 BMI result Body Mass Index 47.8 Const General: cooperative, healthy appearing and comfortable Nutritional Appearance: obese morbidly obese Orientation/consciousness: patient oriented x3 Limitations: no limitations HEENT Head: Yes normocephalic and Yes atraumatic Mouth: moist mucous membranes Resp Effort & Inspection: normal respiratory effort and able to speak in complete sentences Cardio Rate: regular rate Rhythm: regular rhythm Skin Other: Tiny psoriasis patches on extensor aspect of both elbows Neuro General: patient oriented x3 Extrem Other: Minimal tenderness at the base of left thumb No active synovitis No finger triggering elicited on exam Assessment & Plan Assessment & Plan (1) Psoriatic arthritis: Code(s): L40.50 - Arthropathic psoriasis, unspecified Category: Medical Plan: This is a 58-year-old male with psoriasis and psoriatic arthritis who presents as a new patient for me. He has been on Enbrel and methotrexate 15 mg weekly for years with good control of his inflammatory arthritis and his psoriasis. On exam he has tiny psoriasis patches on his elbows that are not particularly bothersome Continue current meds Labs today, in 3 months and in 6 months before next visit (2) Long-term use of immunosuppressant medication: Code(s): Z79.60 - extermination inspector (current) use of unspecified immunomodulators and immunosuppressants Category: Medical Plan: Side effects of Enbrel were discussed with the patient in detail including increased risk of infection, demyelinating disease, reactivation of latent TB, possible increased risk of solid and skin tumors. Patient fully aware. Advised patient to seek medical care [facility] if patient has an infection and advised patient to stop the medication until the infection is resolved. (3) Osteoarthritis of thumbs, bilateral: Code(s): M18.0 - Bilateral primary osteoarthritis of first carpometacarpal joints Category: Medical Plan: Minimal symptoms. Not particularly bothersome for patient. No specific treatment required at this time (4) Trigger finger: Code(s): M65.30 - Trigger finger, unspecified finger Category: Medical Plan: Discussed the nature of trigger fingers. Again symptoms are minimal and do not require any specific treatment at this time Plan I spent 45 minutes reviewing patient's chart, evaluating patient, ordering diagnostic workup, counseling patient and documenting in the chart Orders: Orders Complete Blood Count Auto Diff 6 Months L40.50 - Arthropathic psoriasis, unspecified, Z79.60 - extermination inspector (current) use of unspecified immunomodulators and immunosuppressants Comprehensive Met. Panel 6 Months L40.50 - Arthropathic psoriasis, unspecified, Z79.60 - alf (current) use of unspecified immunomodulators and immunosuppressants C Reactive Protein 6 Months L40.50 - Arthropathic psoriasis, unspecified, Z79.60 - extermination inspector (current) use of unspecified immunomodulators and immunosuppressants Complete Blood Count Auto Diff 3 Months L40.50 - Arthropathic psoriasis, unspecified, Z79.60 - extermination inspector (current) use of unspecified immunomodulators and immunosuppressants C Reactive Protein 3 Months L40.50 - Arthropathic psoriasis, unspecified, Z79.60 - extermination inspector (current) use of unspecified immunomodulators and immunosuppressants Erythrocyte Sedimentation Rate 3 Months L40.50 - Arthropathic psoriasis, unspecified, Z79.60 - alf (current) use of unspecified immunomodulators and immunosuppressants C Reactive Protein Today L40.50 - Arthropathic psoriasis, unspecified, Z79.60 - extermination inspector (current) use of unspecified immunomodulators and immunosuppressants Erythrocyte Sedimentation Rate 6 Months L40.50 - Arthropathic psoriasis, unspecified, Z79.60 - alf (current) use of unspecified immunomodulators and immunosuppressants Comprehensive Met. Panel 3 Months L40.50 - Arthropathic psoriasis, unspecified, Z79.60 - alf (current) use of unspecified immunomodulators and immunosuppressants Complete Blood Count Auto Diff Today L40.50 - Arthropathic psoriasis, unspecified, Z79.60 - extermination inspector (current) use of unspecified immunomodulators and immunosuppressants Comprehensive Met. Panel Today L40.50 - Arthropathic psoriasis, unspecified, Z79.60 - alf (current) use of unspecified immunomodulators and immunosuppressants Erythrocyte Sedimentation Rate Today L40.50 - Arthropathic psoriasis, unspecified, Z79.60 - extermination inspector (current) use of unspecified immunomodulators and immunosuppressants Medications: Refilled Enbrel SureClick (etanercept) 50 mg subcut QWEEK 4 mL 3RF NS L40.50 - Arthropathic psoriasis, unspecified, L40.9 - Psoriasis, unspecified methotrexate sodium 15 mg (6 x 2.5 mg) PO QWEEK 72 tabs 1RF L40.50 - Arthropathic psoriasis, unspecified, L40.9 - Psoriasis, unspecified Coding Level of Care Code Est Pt Level 5 (07571) Complex EM visit Add On G2211 Diagnoses Psoriatic arthritis L40.50 Long-term use of immunosuppressant medication Z79.60 Osteoarthritis of thumbs, bilateral M18.0 Trigger finger M65.30
[2024-03-17 07:53] VITALS: BP 120/78; PULSE 76; O2SAT 97; BMI 47.8
== END 2024-03-17 08:17 | disposition home or self-care (01) ==
PROVIDERS: PCP Physician Assistant; Visit Provider Student in an Organized Health Care Education/Training Program
DX: L40.50 Arthropathic psoriasis, unspecified (principal); Z79.60 Long term (current) use of unspecified immunomodulators and immunosuppressants; M18.0 Bilateral primary osteoarthritis of first carpometacarpal joints; M65.30 Trigger finger, unspecified finger
CPT/HCPCS: 99215; G2211

== ENCOUNTER → 2024-03-17 07:43 | Outpatient (BNVA) | payer OTHER, SELFPAY | PROVIDERS: PCP Physician Assistant; Visit Provider Student in an Organized Health Care Education/Training Program | DX: L40.9 Psoriasis, unspecified (principal); L40.50 Arthropathic psoriasis, unspecified; M18.0 Bilateral primary osteoarthritis of first carpometacarpal joints; M65.322 Trigger finger, left index finger; M65.321 Trigger finger, right index finger; Z79.631 Long term (current) use of antimetabolite agent | CPT/HCPCS: 99212 ==

== ENCOUNTER 2024-04-20 13:20 | Outpatient (AMB) | payer OTHER, SELFPAY ==
--- NOTE | 2024-04-20 13:29 | A.OFFVIS_ITS ---
VS Expanded 04/20/24 14:03 BP 163/88 H Blood Pressure Location Rt brachial Blood Pressure Position Sitting Pulse 81 Pulse Source Pulse Oximeter Temp 97.8 F Temperature Source Temporal Artery Scan Pulse Oximetry 96 Oxygen Delivery Method Room Air Height 5 ft 8 in Weight 307 lb 3.2 oz BMI 46.7 Body Fat % 42.8 Body Fat Mass 131.4 Fat Free Mass 175.8 Visceral Fat Rating 30.0 Body Water % 41.3 Body Water Mass 127.0 Muscle Mass/Score 167.2 Basal Metabolic Rate/Score 2,474 Intake Visit Reasons: LSG in 2013 w/ Dr. Velarde Allergies Penicillins [PENICILLINS] Allergy (Severe, Verified 04/20/24 13:41) DIFFICULTY BREATHING Fish Containing Products Allergy (Intermediate, Verified 04/20/24 13:41) swollen Medication List - Last Reconciled 04/20/24 by PÉREZ Godinez acetaminophen ER (Tylenol Arthritis Pain) 650 mg PO Q12H 90 days atorvastatin 20 mg PO DAILY 90 days blood pressure test kit-large As directed blood sugar diagnostic (FreeStyle Lite Strips) As directed blood-glucose meter (FreeStyle Lite Meter kit) As directed bupropion HCl SR 100 mg PO QAM cholecalciferol (vitamin D3) 25 mcg PO DAILY 90 days Enbrel SureClick (etanercept) 50 mg subcut QWEEK NS folic acid 1 mg PO DAILY heating pads As directed ibuprofen 600 mg PO Q8H PRN lancets (FreeStyle Lancets) As directed levothyroxine 25 mcg PO DAILY losartan 50 mg PO DAILY metformin 1,000 mg (2 x 500 mg) PO BID 90 days methotrexate sodium 15 mg (6 x 2.5 mg) PO QWEEK miscellaneous medical supply 1 ea miscellaneous DAILY 99 days pablljggrvob-xaufmofp-mynydx (Multivitamin 50 Plus tablet) 1 tab PO DAILY omeprazole 40 mg PO DAILY semaglutide (Ozempic) 1 mg (0.75 mL) subcut QWEEK 90 days tramadol 50 mg PO Q6H PRN 7 days HPI Comments Details: This?is a?58?yo male who is s/p LSG [address] Velarde at [facility]. Initially 378lbs. Weight at last visit on 02/27/2021 was 325.8 pounds with a BMI of 49.5, weight today is 307.2 pounds, representing a 18.6 pound weight loss with a BMI today of 46.7.? No complaints of nausea, emesis, abdominal pain or reflux, or constipation. Started on Ozempic- 3-4 months ago. Has been increasing dose, switched from Trulicity- but was slowly losing weight prior to starting this Pt notes he also suffered from Lyme disease since shortly after the surgery. Still deals with arthritis related to this. Present meal plan includes: nutrition is bad for me I have a mental block tries to eat healthy, make healthier choices doesn't eat a lot during the day, eats more at night uses Fitcrunch bars takes MVI inconsistently Exercise routine includes: limited due to R knee, needs replacement- had L knee done previously swimming gets some form of exercise pretty much every day PFSH Medical History (Updated 03/17/24 @ 08:20 by Rupinder Gomez MD) Long-term use of immunosuppressant medication Screening examination for infectious disease Psoriatic arthritis COVID-19 Skin lesion Type 2 diabetes mellitus Vitamin D deficiency Psoriasis Hypercholesterolemia Bipolar disorder Depression Rheumatoid arthritis LENNOX (generalized anxiety disorder) HTN (hypertension) DMII (diabetes mellitus, type 2) Surgical History (Updated 04/20/24 @ 13:35 by PÉREZ Godinez) H/O knee surgery History of sleeve gastrectomy History of right shoulder replacement H/O arthroscopy of knee History of colonoscopy Family History Father Diabetes Dialysis patient Mother Hypertension Heart problem Social History Housing: House Alcohol intake: never Patient Tobacco Use Status: Never used Tobacco e-Cigarette/Vaping Use: Never Used Second Hand Smoke Exposure: No service: No Current occupational status: unemployed Cognitive needs: No Hearing needs: No Vision needs: Yes Assessment & Plan Assessment & Plan (1) Morbid (severe) obesity due to excess calories: Code(s): E66.01 - Morbid (severe) obesity due to excess calories Category: Medical (2) History of sleeve gastrectomy: Code(s): Z90.3 - Acquired absence of stomach [part of] Category: Surgical Plan Pt will text me a photo of the protein shakes he has at home. We will build a plan around those and Fitcrunch bars. He spent a lot of time talking about his obstacles and his current habits. Labs ordered. RTC 2-3 months, provided pt with my contact info and encouraged him to check in with me weekly. I spent a total of 30 minutes reviewing/updating records, examining the patient and counseling the patient on weight management as detailed above. Orders: Orders Insulin Today Z90.3 - Acquired absence of stomach [part of] Hemoglobin A1c Today Z90.3 - Acquired absence of stomach [part of] Lipid Panel Today Z90.3 - Acquired absence of stomach [part of] Comprehensive Met. Panel Today Z90.3 - Acquired absence of stomach [part of] Vitamin B12 and Folate Today Z90.3 - Acquired absence of stomach [part of] Zinc Today Z90.3 - Acquired absence of stomach [part of] C Reactive Protein Today Z90.3 - Acquired absence of stomach [part of] Vitamin B1 Today Z90.3 - Acquired absence of stomach [part of] Vitamin A Today Z90.3 - Acquired absence of stomach [part of] Vitamin D 25-OH Total Today Z90.3 - Acquired absence of stomach [part of] Complete Blood Count Auto Diff Today Z90.3 - Acquired absence of stomach [part of] IRON PROFILE Today Z90.3 - Acquired absence of stomach [part of] TSH reflex Free T4 Today Z90.3 - Acquired absence of stomach [part of] Ferritin Today Z90.3 - Acquired absence of stomach [part of]
[2024-04-20 14:03] VITALS: BP 163/88; PULSE 81; TEMP 36.6; O2SAT 96; BMI 46.7
== END 2024-04-20 15:51 | disposition home or self-care (01) ==
PROVIDERS: PCP Physician Assistant; Visit Provider Physician Assistant Surgical
DX: E66.01 Morbid (severe) obesity due to excess calories (principal); Z90.3 Acquired absence of stomach [part of]
CPT/HCPCS: 99214; G2211

== ENCOUNTER → 2024-04-20 13:20 | Outpatient (BNVA) | payer OTHER, SELFPAY | PROVIDERS: PCP Physician Assistant; Visit Provider Physician Assistant Surgical | DX: E66.01 Morbid (severe) obesity due to excess calories (principal); Z90.3 Acquired absence of stomach [part of]; Z98.84 Bariatric surgery status; Z68.42 Body mass index [BMI] 45.0-49.9, adult | CPT/HCPCS: 99212 ==

== ENCOUNTER 2024-08-04 09:30 | Outpatient (REF) | payer OTHER, SELFPAY ==
[2024-08-04 10:25] LABS: MANUAL DIFF FLAG NO
[2024-08-04 10:51] LABS: Basophils Absolute Auto 0.1 X10*3/uL (0.0-0.2); Basophils Percent Auto 0.9 % (0-2); Eosinophils Absolute Auto 0.3 X10*3/uL (0.0-0.4); Eosinophils Percent Auto 3.7 % (0-4); Hematocrit 42.2 % (42.0-52.0); Hemoglobin 14.2 g/dl (14.0-18.0); Imm Gran Abs Auto 0.06 X10*3/uL (0.00-0.03); Imm Gran Pct Auto 0.8 % (0.0-0.4); Lymphocytes Absolute Auto 2.5 X10*3/uL (1.2-4.9); Mean Corpuscular HGB Conc 33.6 g/dl (31.0-36.0); Mean Corpuscular Hemoglobin 29.2 pg (27.0-33.0); Mean Corpuscular Volume 86.7 fL (80.0-98.0); Mean Platelet Volume 9.1 fL (9.4-12.4); Monocytes Absolute Auto 0.8 X10*3/uL (0.1-1.2); Monocytes Percent Auto 10.5 % (2-11); Neutrophils Absolute Auto 3.9 x10*3/uL (2.0-8.3); Neutrophils Percent Auto 51.1 % (45-73); Platelet Count 288 X10*3/uL (160-400); Red Blood Count 4.87 X10*6/uL (4.60-5.80); Red Cell Distribution Width 15.1 % (11.0-16.0); White Blood Count 7.6 X10*3/uL (4.8-10.8)
--- OUTSIDE RECORDS SUMMARY | 2024-08-04 10:51 | XMS_ITS | Clinical Summary ---
Author Organization [address] [facility] Address [address] [place] [address] Phone Care Team Providers Care Wellness Program Manager Name Role Phone Mario Palmer DO Primary Care Provider [phone] Allergies No known active allergies Active Problems Problem Noted Date Diagnosed Date Obstructive sleep apnea hypopnea, severe 024 Social History Tobacco Use Types Packs/Day Years Used Date Smoking Tobacco: Never Assessed Sex and Gender Information Value Date Recorded Sex Assigned at Not on file Legal Sex Male 10:35 PM EST Gender Identity Not on file Sexual Orientation Not on file Plan of Treatment Health Maintenance Due Date Last Done Comments Diabetes: Annual GFR (Glomer ular Filtration Rate) 1964 COVID-19 Vaccine (#1) 1969 Diabetes: Annual Foot Exam 1974 Diabetes: Annual Retina Eye Exam 1974 DTaP,Tdap,and Td Vaccines (1 - Tdap) 11/01/1983 Hepatitis B Vaccines (1 of 3 - 19+ 3-dose series) 11/01/1983 Pneumococcal Vaccine: 50+ Ye ars (2 of 2 - PCV) 2014 09/12/2012 Zoster Vaccines (2 of 2) 03/29/2021 02/01/2021 Influenza Vaccine (#1) 2024 02/15/2022 Cholesterol Screening (Lipid Panel) 04/20/2024 Colorectal Cancer Screening: Colonoscopy 04/20/2024 Depression Screening 04/20/2024 HIV Screening 04/20/2024 Hepatitis C Screening 04/20/2024 Social Influencers of Health Screening 04/20/2024 Diabetes: Annual Urine Albumin-Creatinine Ratio (uACR) 07/01/2024 Diabetes: Blood Sugar Contro l Test (HGBA1C) 07/01/2024 Hypertension/CHF/CAD Annual BMP Blood Test 07/01/2024 RSV Immunization Patients 60 + Years Old (1 - 1-dose 75+ series) 11/01/2039 Pneumococcal Vaccine: Pediat rics (0 to 5 Years) and At-Risk Patients (6 to 64 Years) Aged Out 09/12/2012 No longer eligi ble based on patient's age to complete this topic HIB Vaccines Aged Out No longer eligi ble based on patient's age to complete this topic HPV Vaccines Aged Out No longer eligi ble based on patient's age to complete this topic Hepatitis A Vaccines Aged Out No long er eligible based on patient's age to complete this topic IPV Vaccines Aged Out No longer eligi ble based on patient's age to complete this topic MMR Vaccines Aged Out No longer eligi ble based on patient's age to complete this topic Meningococcal ACWY Vaccine Aged Out N o longer eligible based on patient's age to complete this topic Meningococcal B Vacine Aged Out No lo nger eligible based on patient's age to complete this topic RSV Immunization Patients Un cee 20 months Aged Out No longer eligible b ased on patient's age to complete this topic Varicella Vaccines Aged Out No longer eligible based on patient's age to complete this topic Insurance MEDICAID - [place] Care Teams Wellness Program Manager Relationship Specialty Start Date End Date Mario Palmer DO [address] [place] [id number] PCP - General Family Medicine 04/27/24
--- OUTSIDE RECORDS SUMMARY | 2024-08-04 10:51 | XMS_ITS | Data Portability ---
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 I know him well from previous left total knee arthroplasty. He is extremely satisfied with the outcome of that surgical procedure. The patient reports that he is having increasing pain with his right knee. He had some other health problems which caused him to delay surgical intervention. His most recent corticosteroid injection was on 05/03/2024. He had only short-term benefit. He does a home exercise program. He is not walking with a cane or assistive device. He has difficulty climbing stairs reciprocally. Difficulty walking distances. Difficulty getting in and out of the car. In addition he describes radiated hip and back pain due to his knee osteoarthritis symptoms. The patient's takes Tylenol intermittently for symptom control. He is on methotrexate for RA. He sees rheumatology regularly. He avoids anti-inflammatori es if at all possible due to health issues. The patient's knee symptom profile form was reviewed and is part of the medical record. The patient remains symptomatic and has had an unsuccessful history of appropriate conservative therapy (non-surgical medical management). Non-surgical medical management has been implemented for 3 months or more to assess effectiveness. Conservative treatment as clinically appropriate for the patient? s current episode of care including, but not limited to, one or more of the following: anti-inflammatory medications, analgesics, flexibility and muscle strengthening exercises, supervised physical therapy (Activities of daily living (ADLs) diminished despite completing a plan of care), activity restrictions as is reasonable, assistive device use, weight reduction as appropriate, and therapeutic injections into the joint as appropriate PFMSH and ROS have been reviewed, updated, and is located in the patient? s chart. PAST MEDICAL HISTORY: Past medical history is significant for [RA, diabetes, hypercholesteremi a, weakness PAST SURGICAL HISTORY: Past surgical history includes shoulder and knee replacement MEDICATIONS: Please see intake form. ALLERGIES: Patient reports an allergy to penicillin does not report an allergy to metal, latex, Iodine, tape, or adhesives. 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 He does not consume tobacco, alcohol, or illegal drugs. He last the dentist 3 months ago. He has stairs and a support system at home. PHYSICAL EXAMINATION: Please see vitals recorded below Mental status: Alert and lucid. Normal insight, affect, and grooming. 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 No spasticity or clonus noted. Extremities: Calves are soft and nontender. Skin intact. Palpable pedal pulses equal bilaterally. ORTHOPEDIC EXAMINATION: Negative SLR tests bilaterally. Full ROM of both hips without pain. No trochanteric tenderness. Evaluation of knees: Right Knee range of motion is 0-130 degrees. Knee is stable to varus/valgus loading, anterior/posterio r drawer testing, Randolph testing. No erythema, no redness. There is moderate sub patellar crepitus. Peripheral vascular, lymphatic examination, skin, neurological coordination, reflexes, and sensation are within normal limits. IMAGING: X-rays ordered, obtained, and reviewed today on [facility] PACS: Weight bearing AP of Both knees, Velazquez view of Both Knees, [place] View of Both Knees, and Lateral of the Right knee; demonstrate severe end-stage osteoarthritis of the Right knee. There is melq-gg-edte articulation medially, subchondral sclerosis, osteophyte formation. There is varus deformity and there isModerate patellofemoral involvement. There is Kellgren Austin grade 4 osteoarthritis. There is appropriate position of his contralateral knee replacement. IMPRESSION: Right knee end-stage osteoarthritis and morbid obesity PLAN: I reviewed with the patient surgical and nonsurgical means to control symptoms. The patient understands that they are at potential increased risk of postoperative infection and early failure. I reviewed the patient surgical and nonsurgical management. He would like to proceed with total knee arthroplasty. He is 5 pounds heavier than when it is contralateral side. I did encourage him to lose weight and lead up to surgical intervention. Patient understands and is to be greater then 12 weeks out from his most recent intra-articular steroid and surgery will be scheduled accordingly. I attempted to answer all of his questions today in the office. The patient has exhausted all conservative treatment, therapy and measures. The patient was thoroughly counseled today regarding their knee condition, its natural history and the options, both operative and non-operative. The nature of knee replacement surgery, the potential risks, benefits, and complications, the magnitude of the surgery, the intensity of postoperative recovery as well as its elective nature was explained at length today. Issues regarding lifelong infection and activity precautions were reviewed. The longevity of the implants was discussed. The patient understands the potential need for revision surgery within the next 15 years. The patient understands the potential complexity of a revision situation. A copy of my knee replacement information packet was given. The patient will require clearance from a medical doctor prior to surgery. The patient wishes to schedule an elective total knee replacement at this time. They were educated about the goal of discharge home from the hospital and given a prescription for pre-hab physical therapy. Next planned follow-up is at the history and physical. The patient knows I will be happy to meet with them at any time in order to review any additional questions or concerns that they might have. Patient was satisfied with this plan. I attempted to answer all of the patient's questions. [facility] speech recognition jira administrator software was used to create portions of this document. An attempt at proofreading has been made to minimize errors. Please call for corrections. [email or web address] Not available 06/03/2024 08:39:44 07/30/2024 07/30/2024 Assessment: Patient presents with symptoms that are consistent with knee OA. Demonstrates good understanding of home program, post-operative mechanics for gait and stairs, and expectations following surgery. Plan: Discharge patient to knee OA safe [facility]. Follow up with patient post-operatively. [email or web address] Not available 07/29/2024 21:22:09 Plan of Treatment Reminders Order Date Submit Date Provider Last Modified By Organization Details Last Modified Time Details Appointments KARMA Watson&Aggie 2024 09:30A M Cesar Barr, EMPLOYMENT DIRECTOR Not available Not available Not available SURGERY @ [facility] 2024 08:30A M Endy Parada MD Not available Not available Not available PT INITIAL EVAL 2024 11:00A M Jacob Pyser, PT Not available Not available Not available PT FOLLOW-U P 2024 11:00A M Zac Scafuri, [employer] [employer] Not available Not available Not available POST OP 15 2024 01:15P M Ric Koch, PA-C Not available Not available Not available PT FOLLOW-U P 2024 11:00A M Zca Scafuri, [employer] [employer] Not available Not available Not available PT FOLLOW-U P 2024 11:30A M Zac Scafuri, [employer] [employer] Not available Not available Not available PT FOLLOW-U P 2024 11:30A M Zac Scafuri, [employer] [employer] Not available Not available Not available PT FOLLOW-U P 2024 11:00A M Jacob Pyser, PT Not available Not available Not available POST OP 15 2024 01:15P M Antony Valenzuela, PA-C Not available Not available Not available PT FOLLOW-U P 2024 11:00A M Jacob Pyser, PT Not available Not available Not available PT FOLLOW-U P 2024 11:30A M Zac Scafuri, [employer] [employer] Not available Not available Not available PT FOLLOW-U P 2024 11:30A M Zac Scafuri, [employer] [employer] Not available Not available Not available PT FOLLOW-U P 2024 11:30A M Zac Scafuri, [employer] [employer] Not available Not available Not available PT FOLLOW-U P 2024 11:30A M Zac Scafuri, [employer] [employer] Not available Not available Not available PT FOLLOW-U P 2024 11:00A M Jacob Pyser, PT Not available Not available Not available PT FOLLOW-U P 2024 11:00A M Jacob Pyser, PT Not available Not available Not available PT FOLLOW-U P 2024 11:30A M Zac Scafuri, [employer] [employer] Not available Not available Not available PT FOLLOW-U P 2024 11:30A M Zac Ramseyfuri, [employer] [employer] Not available Not available Not available PT FOLLOW-U P 2024 11:30A M Zac Ramseyfuri, [employer] [employer] Not available Not available Not available PT FOLLOW-U P 2024 11:30A M Jacob Pyser, PT Not available Not available Not available PT FOLLOW-U P 2024 11:30A M Jacob Pyser, PT Not available Not available Not available PT FOLLOW-U P 2024 11:30A M Zac Scafuri, [employer] [employer] Not available Not available Not available PT FOLLOW-U P 2024 11:30A M Zac Ramseyfuri, [employer] [employer] Not available Not available Not available RECHECK 10 2024 02:20P M Endy Parada MD Not available Not available Not available Lab None recorded . Referral None recorded . Procedures None recorded . Surgeries None recorded . Imaging XR, knee, 4 or more view - rm 217 4V right knee pain, wants TKR 2023 024 [facility], [address], [address], [place], [address], 06/02/2024 12:20:16 Medication Orders None recorded . Patient TargetsNo targets recorded. Patient InstructionsNo instructions recorded. Reason for Referral None Reported. Results Created Date Observation Date Name Description Value Unit Range Abnormal Flag Note LastModifiedBy Organization Detail LastModifiedTime 01/24/20 24 07/01/2023 imagi ng/di agnos tic resul t No observ ation record ed. [email or web address] Not Available 12/27 04:57:17 01/24/20 24 10/07/2018 imagi ng/di agnos tic resul t No observ ation record ed. [email or web address] Not Available 12/27 04:58:48 01/24/20 24 10/30/2018 imagi ng/di agnos tic resul t No observ ation record ed. [email or web address] Not Available 12/27 04:58:49 01/24/20 24 10/28/2018 imagi ng/di agnos tic resul t No observ ation record ed. [email or web address] Not Available 12/27 04:58:50 05/13/20 24 05/13/2024 XR, knee, 4 or more view http:/ [email or web address] ?Encry pted=s hAaTro YD8dLq bEUv6g %2BXZw aYqtaq 0bqfl% 2Fg9IQ a4ajBk vP9nXo QUaueC m3YtLR FvZlgJ JJ8mAn HZtai3 [id number] AC0Kqb n6MUaC gKiQtr MwF INTERFACE [facility] [address], [place], [address], 05/13/2024 10:00:55 05/13/20 24 05/13/2024 XR, knee, 4 or more view http:/ [email or web address] ?Encry pted=s hAaTro YD8dLq bEUv6g %2BXZw aYqtaq 0bqfl% 2Fg9IQ a4ajBk vP9nXo QUaueC m3YtLR FvZlgJ JJ8mAn HZtai3 3l8578 AC0Kqb n6MUaC gKiQtr MwF INTERFACE [facility] [address], [place], [address], 05/13/2024 10:00:57 Result Notes None recorded. Problems Name Problem SNOMED Code Status Onset Date Resolution Date Notes Provider Name and Address Organization Details Recorded Time No complaints 456767887 Active Status : 'I'; Not Available [facility] 4 09:27:01 Body mass index 40+ - severely obese 945216360 Active 2024 Endy Parada MD [address], [place], [address] , [facility] 5 08:36:41 Pain of joint of knee 7537435016 Active 2022 Status : 'A'; Not Available [facility] 4 11:59:24 Stiffness of left knee 1372646185559 02 Active 2023 Endy Parada MD [address], [place], [address] , [facility] 4 09:53:52 Osteoarthr itis of right knee joint 5876093230889 00 Active 2023 Endy Parada MD [address], [place], [address] , [facility] 5 15:20:37 Problem Notes None recorded. Procedures Surgical History Date Name Laterality Status Provider Name and Address Organization Details Recorded Time 5 56711 Therapeutic Exercise (1:1) completed Jacob Severino, PT [address], [place], [address], [facility] 07/29/2024 21:20:23 5 50855: Low complexity PT Eval completed Jacob Severino, PT [address], [place], [address], [facility] 07/29/2024 21:20:26 4 Sports Knee 4&1 completed Sunny Burnette PA-C [address], [place], [address], [facility] 02/10/2024 07:45:43 4 Sports Knee 4&1 completed Sunny Burnette PA-C [address], [place], [address], [facility] 10/28/2023 12:11:26 4 73278 Therapeutic Exercise (1:1) completed Igor Melendez PTA [address], [place], [address], [facility] 09/26/2023 08:30:50 4 32976 Therapeutic Exercise (1:1) completed Igor Melendez PTA [address], [place], [address], [facility] 09/12/2023 10:16:16 4 Knee Kenalog 40mg 2cc Injection, L/R completed Endy Parada MD [address], [place], [address], [facility] 09/11/2023 15:48:43 4 95051 Therapeutic Exercise (1:1) completed Igor Melendez PTA [address], [place], [address], [facility] 09/09/2023 10:37:00 4 60833 Therapeutic Exercise (1:1) completed Igor Melendez PTA [address], [place], [address], [facility] 09/04/2023 11:35:16 4 99761 Therapeutic Exercise (1:1) completed Igor Melendez PTA [address], [place], [address], [facility] 09/02/2023 10:25:21 4 89788 Therapeutic Exercise (1:1) completed Igor Melendez PTA [address], [place], [address], [facility] 08/30/2023 10:06:07 4 93085 Therapeutic Exercise (1:1) completed Igor Melendez PTA [address], [place], [address], [facility] 08/28/2023 11:36:38 4 32654: Manual therapy completed Igor Melendez PTA [address], [place], [address], [facility] 08/28/2023 11:36:38 4 17446 Therapeutic Exercise (1:1) completed Igor Melendez [address] [employer] [address], [place], [address], [facility] 08/22/2023 08:38:03 4 64910: Manual therapy completed Igor Al, [address] [employer] [address], [place], [address], [facility] 08/22/2023 08:38:03 4 91468 Therapeutic Exercise (1:1) completed Igor Melendez, [address] [employer] [address], [place], [address], [facility] 08/15/2023 08:45:40 4 76066: Manual therapy completed Igor Melendez, [address] [employer], [place], [address], [facility] 08/15/2023 08:45:40 4 86138 Therapeutic Exercise (1:1) completed Jacob Davidsonser, PT [address], [place], [address], [facility] 08/13/2023 09:53:42 4 62209: Manual therapy completed Jacob Davidsonser, PT [address], [place], [address], [facility] 08/12/2023 20:53:45 4 56096 Therapeutic Exercise (1:1) completed Jacob Davidsonser, PT [address], [place], [address], [facility] 08/08/2023 09:52:25 4 66909: Hot or Cold Pack completed Jacob Pyser, PT [address], [place], [address], [facility] 08/08/2023 09:53:17 4 74369: Manual therapy completed Jacob Pyser, PT [address], [place], [address], [facility] 08/07/2023 06:57:01 4 18412 Therapeutic Exercise (1:1) completed Jacob Pyser, PT [address], [place], [address], [facility] 08/06/2023 10:24:18 4 45996: Hot or Cold Pack completed Jacob Pyser, PT [address], [place], [address], [facility] 08/06/2023 10:24:58 4 98969: Manual therapy completed Jacob Pyser, PT [address], [place], [address], [facility] 08/06/2023 10:24:27 Imaging Results Imaging Date Name Status [facility]Modified [facility] Details LastModified Time 07/01/2023 imaging/diag nostic result completed Information not available 01/24/2024 04:57:17 10/07/2018 imaging/diag nostic result completed Information not available 01/24/2024 04:58:48 10/30/2018 imaging/diag nostic result completed Information not available 01/24/2024 04:58:49 10/28/2018 imaging/diag nostic result completed Information not available 01/24/2024 04:58:50 05/13/2024 XR, knee, 4 or more view completed INTERFACE [facility] [address], [place], [address], 05/13/2024 10:00:55 05/13/2024 XR, knee, 4 or more view completed INTER[facility] [address], [place], [address], 05/13/2024 10:00:57 Procedure Notes None recorded. Medical Equipment None Reported. Allergies Allergen ID Allergen Name Allergen Category Reaction Reaction Severity Criticality Documentation Date Start Date Code Code System Note Provider Name and Address Organization Details Recorded Time 739582 Fish (substanc e) food,medi cation Not available Not available Not available 08/13/2023 90912 1005 SNOMED Sunny Burnette PA-C [address], [place], [address], [facility] 4 10:47:16 87185 Product containin g penicilli n (product) medicatio n Not available Not available Not available 07/29/20232006 41237 8001 SNOMED Aller gyRea ction : 'Skin React ion, RASH' ; Not Available [facility] 4 12:44:37 Medications Name Sig Start Date Stop Date Status Note LastModified by Organization Details LastModified Time losartan 50 mg tablet TAKE 1 TABLET BY MOUTH EVERY DAY active Not Available Not Available No t Available celecoxib 200 mg capsule TAKE 1 CAPSULE BY MOUTH EVERY DAY TO BE STARTED 3 DAYS BEFORE SURGERY 06/03 completed Not Available Not Available Not Available cyclobenzap rine 10 mg tablet TAKE 1 TABLET 3 TIMES A DAY BY ORAL ROUTE. active Not Available Not Available No t Available metformin 500 mg tablet TAKE 2 TABLETS BY MOUTH TWICE A DAY active Not Available Not Available No t Available atorvastati n 20 mg tablet TAKE 1 TABLET BY MOUTH EVERY DAY active Not Available Not Available No t Available clindamycin HCl 300 mg capsule TAKE 2 CAPSULES 30 MINUTES PRIOR TO DENTAL PROCEDURE DIRECTED 06/03 completed Not Available Not Available Not Available atorvastati n 10 mg tablet TAKE 1 TABLET BY MOUTH DAILY active Not Available Not Available No t Available FreeStyle Lancets 28 gauge TEST ONCE DAILY DIRECTED active Not Available Not Available No t Available hydroxyzine HCl 50 mg tablet TAKE 1 TABLET BY MOUTH TWICE A DAY NEEDED 06/03 completed Not Available Not Available Not Available omeprazole 40 mg capsule,del ayed release TAKE 1 CAPSULE BY MOUTH EVERY DAY active Not Available Not Available No t Available tramadol 50 mg tablet TAKE 1 TABLET (50 MG) ORALLY EVERY 6 HOURS NEEDED FOR MODERATE PAIN FOR 7 DAYS active Not Available Not Available No t Available bupropion HCl SR 100 mg tablet,12 hr sustained-r elease TAKE 1 TABLET BY MOUTH EVERY DAY IN THE MORNING active Not Available Not Available No t Available levothyroxi ne 25 mcg tablet TAKE 1 TABLET BY MOUTH EVERY DAY 06/03 completed Not Available Not Available Not Available acetaminoph en ER 650 mg tablet,exte nded release TAKE 1 TABLET BY MOUTH EVERY 12 HOURS FOR 90 DAYS active Not Available Not Available No t Available methotrexat e sodium 2.5 mg tablet TAKE 6 TABLETS (15 MG) ORALLY EVERY WEEK active Not Available Not Available No t Available aspirin 325 mg tablet,elinor yed release TAKE 1 TABLET BY MOUTH TWICE A DAY X 30 DAYS START AFTER SURGERY 06/03 completed Not Available Not Available Not Available docusate sodium 100 mg capsule TAKE 1 CAPSULE TWICE A DAY DIRECTED. MEDICATIO N TO BE STARTED AFTER SURGERY 06/03 completed Not Available Not Available Not Available folic acid 1 mg tablet TAKE 1 TABLET BY MOUTH EVERY DAY active Not Available Not Available No t Available hydromorpho ne 4 mg tablet TAKE 1/2 TO 1 TABLET BY MOUTH EVERY 6 HOURS NEEDED FOR PAIN *DO NOT DRIVE WHILE TAKING* 06/03 completed Not Available Not Available Not Available hydroxyzine pamoate 25 mg capsule TAKE 2 CAPSULES BY MOUTH AT BEDTIME NEEDED active Not Available Not Available No t Available cholecalcif tani (vitamin D3) 25 mcg (1,000 unit) capsule TAKE 1 CAPSULE BY MOUTH EVERY DAY 06/03 completed Not Available Not Available Not Available Vitamin D3 25 mcg (1,000 unit) tablet TAKE 1 TABLET BY MOUTH EVERY DAY active Not Available Not Available No t Available risperidone risperiDO NE 0.5MG Tablet 03/30 completed Statu s: 'Disc ontin ued'; Not Available Not Available Not Available Enbrel SureClick 50 mg/mL (1 mL) subcutaneou s pen injector active Not Available Not Available Not Available FreeStyle Lite Strips USE DIRECTED TO TEST ONCE DAILY active Not Available Not Available No t Available oxycodone HCl-oxycodo ne-ASA 1 every 4 - 6 hours as needed DO NOT DRIVE WHILE ON THIS MEDICATIO N 06/03 completed Statu s: 'Curr ent'; Not Available Not Available Not Available Trulicity 0.75 mg/0.5 mL subcutaneou s pen injector INJECT 0.75 MG (0.5 ML) SUBCUTANE OUSLY WEEKLY 06/03 completed Not Available Not Available Not Available baclofen 5 mg tablet TAKE 1 TABLET BY MOUTH THREE TIMES A DAY 06/03 completed Not Available Not Available Not Available Trulicity 3 mg/0.5 mL subcutaneou s pen injector INJECT 3 MG (0.5 ML) SUBCUTANE OUSLY EVERY WEEK FOR 4 WEEKS 06/03 completed Not Available Not Available Not Available Ozempic 1 mg/dose (4 mg/3 mL) subcutaneou s pen injector INJECT 1 MG SUBCUTANE OUSLY EVERY WEEK FOR 90 DAYS active Not Available Not Available No t Available Flowflex COVID-19 Antigen Home Test kit USE DIRECTED active Not Available Not Available No t Available Ozempic 0.25 mg or 0.5 mg (2 mg/3 mL) subcutaneou s pen injector INJECT 0.5 MG SUBCUTANE OUSLY ONCE A WEEK FOR 4 WEEKS 06/03 completed Not Available Not Available Not Available Vitals Date Recorded Body height Body mass index (BMI) Body weight Provider Name and Address Organization Details Last Updated DateTime 10/28/2023 175.26 cm 44.3 kg/m2 118838.71 g NELLA SOBIA [facility] 10/28/2023 11:11:26 Date Recorded Body height Body mass index (BMI) Body weight Provider Name and Address Organization Details Last Updated DateTime 02/10/2024 175.26 cm 44.3 kg/m2 433837.71 g Nik Ramirez [facility] 02/10/2024 08:22:17 Date Recorded Body height Body mass index (BMI) Body weight Provider Name and Address Organization Details Last Updated DateTime 05/13/2024 172.72 cm 45.6 kg/m2 501499.71 g LONDON NICHOLS [facility] 05/13/2024 09:47:13 Date Recorded Body height Body mass index (BMI) Body weight Provider Name and Address Organization Details Last Updated DateTime 06/03/2024 171.45 cm 48.6 kg/m2 161404.6 g Calista Raphael [facility] [facility] 06/03/2024 08:04:46 Social History None recorded. Functional Status None recorded. Mental Status None recorded. Family History Nothing Reported. Medical History Condition Response Allergies/Hayfever N Coronary Artery Disease N Anxiety/Depression Y Emphysema N Thyroid Problems N COPD N Pacemaker N Anemia N Kidney/Bladder Problems N Vascular Disease N Gastrointestinal Disease N Heart Attack (MO) N Diabetes N Autoimmune disease N Bleeding Disorder N Orthotics N Seizures/Epilepsy N Arthritis Y Blood Clot N AIDS/HIV N Congestive Heart Failure (CHF) N Acid Reflux (GERD) N Cancer N Stroke N Asthma N Peripheral Vascular Disease N Sleep Apnea N Hepatitis N Heart Disease N Rheumatoid Arthritis N Pulmonary Embolism N Arrhythmia N Fibromyalgia N Hypertension Y Osteoporosis N Past Encounters Encounter ID Performer Location Encounter Start Date Encounter Closed Date Diagnosis/Indication Diagnosis SNOMED-CT Code Diagnosis ICD10 Code Diagnosis Note [id number] Jacob Pyser, PT [facility] [address] [place] [address] 08/06/2023 09:01:43 08/06/2023 12:31:27 Aftercare 438481391 Z47.1 History of left total knee replacement 6285360345 150602 Z96.500 [id number] Jacob Pyser, PT [facility] [address] [place] [address] 08/08/2023 08:56:20 08/08/2023 11:03:22 Aftercare [id number] Z47.1 History of left total knee replacement 7990053324 137080 Z96.727 [id number] Jacob Pyser, PT [facility] [address] [place] [address] 08/13/2023 08:54:06 08/13/2023 11:24:20 Aftercare [id number] Z47.1 History of left total knee replacement 8983766879 642329 Z96.974 [id number] Sunny Burnette PA-C [facility] [address] [place] [address] 08/13/2023 10:05:21 08/13/2023 11:24:44 History of arthroplasty of left knee 3574714074 655805 Z96.976 [id number] Igor Cleveland , DPT [facility] [address] [place] [address] 08/15/2023 08:44:49 08/15/2023 10:56:07 Aftercare [id number] Z47.1 History of left total knee replacement 3618975158 853611 Z96.939 [id number] Alex Santos DPT [facility] [address] [place] [address] 08/22/2023 09:02:35 08/22/2023 10:21:14 Aftercare 279100913 Z47.1 History of left total knee replacement 3203175838 768285 Z96.341 [id number] Endy Parada MD [facility] [address] [place] [address] 08/26/2023 09:05:41 09/12/2023 13:28:43 History of left total knee replacement 5518905616 470621 Z96.652 Stiffness of left knee 3833514583 14435 M25.258 [id number] Jacob Pyser, PT [facility] [address] [place] [address] 08/28/2023 11:32:12 08/28/2023 12:19:05 Aftercare 852228587 Z47.1 History of left total knee replacement 7085892126 365432 Z96.055 [id number] Jacob Pyser, PT [facility] [address] [place] [address] 08/30/2023 09:05:07 08/30/2023 10:14:15 Aftercare 063758651 Z47.1 History of left total knee replacement 2879492338 017566 Z96.637 [id number] Jacob Pyser, PT [facility] [address] [place] [address] 09/02/2023 11:32:36 09/02/2023 12:20:01 Aftercare 303541182 Z47.1 History of left total knee replacement 7580055027 338082 Z96.249 [id number] Jacob Pyser, PT [facility] [address] [place] [address] 09/04/2023 11:33:19 09/04/2023 12:09:23 Aftercare 406459809 Z47.1 History of left total knee replacement 6449304551 659321 Z96.390 [id number] Jacob Pyser, PT [facility] [address] [place] [address] 09/09/2023 12:09:44 09/09/2023 12:54:47 Aftercare 631534219 Z47.1 History of left total knee replacement 7098057841 163409 Z96.848 [id number] Endy Parada MD [facility] [address] [place] [address] 09/11/2023 15:03:03 10/02/2023 12:12:26 History of left total knee replacement 6377269121 142556 Z96.652 Osteoarthr itis of right knee joint 7838193262 41963 M17.11 [id number] Jacob Pyser, PT [facility] [address] [place] [address] 09/12/2023 10:07:56 09/12/2023 10:43:15 Aftercare 455304444 Z47.1 History of left total knee replacement 5857111785 338465 Z96.732 [id number] Jacob Pyser, PT [facility] [address] [place] [address] 09/26/2023 08:20:36 09/26/2023 09:49:37 Aftercare 120007452 Z47.1 History of left total knee replacement 9904418007 350144 Z96.885 [id number] Sunny Burnette PA-C [facility] [address] [facility] [address] [place] [address] 10/28/2023 10:19:00 11/27/2023 09:24:41 Osteoarthritis of right knee joint 9846028311 98631 M17.11 [id number] [facility] [address] [facility] [place] [address] 02/10/2024 08:18:15 02/10/2024 12:30:57 Osteoarthritis of right knee joint 4469189081 22764 M17.11 [id number] Sunny Burnette PA-C [facility] [address] [facility] [address] [place] [address] 05/13/2024 09:44:14 06/02/2024 12:20:16 Osteoarthritis of right knee joint 5078075437 96213 M17.11 [id number] Endy Parada MD [facility] [address] [address] [place] [address] 06/03/2024 07:55:50 06/15/2024 14:12:51 Osteoarthritis of right knee joint 5151135368 72652 M17.11 Body mass index 40+ - severely obese 777756002 E66.01 [id number] Jacob Severino, PT [facility] [address] [place] [address] 07/30/2024 11:24:10 07/30/2024 12:44:30 Osteoarthritis of knee 071277229 M17.11 Health Concerns Section Related Observation LastModified by Organization Detai ls LastModified Time None Recorded Concern Status LastModified by Organization Details LastModified Time None Recorded Advance Directives Directive None Recorded Payers Encounter Date Sequence Insurance Name Policy Number Policy Richardson Covered Member ID Richardson Member ID Guarantor Name 10/28/2023 1 [facility] [employer] - DOS ON OR AFTER 2022 - ONE CARE (MEDICARE REPLACEMENT/ADV ANTAGE - HMO) Chucky Abarca [id number] Chucky Abarca Jr 02/10/2024 1 [employer] - DOS ON OR AFTER 2022 - ONE CARE (MEDICARE REPLACEMENT/ADV ANTAGE - HMO) Chucky Abarca [id number] Chucky Abarca Jr 05/13/2024 1 [employer] - DOS ON OR AFTER 2022 - ONE CARE (MEDICARE REPLACEMENT/ADV ANTAGE - HMO) Chucky Abarca [id number] Chucky Abarca Jr 06/03/2024 1 [employer] - DOS ON OR AFTER 2022 - ONE CARE (MEDICARE REPLACEMENT/ADV ANTAGE - HMO) Chucky Abarca [id number] Chucky Abarca Jr 07/30/2024 1 [employer] - DOS ON OR AFTER 2022 - ONE CARE (MEDICARE REPLACEMENT/ADV ANTAGE - HMO) Chucky Abarca [id number] Chucky Abarca Jr Notes Date Note Type Note Provider Name and Address Organization Details Recorded Time 10/28/2023 text/html I am seeing the patient today under the supervision of {{Karma* Tai} } who was available but who did not see the patient. Chief Complaint The patient presents today for recheck of {{left right*}} knee osteoarthritis. Is known to have knee arthritis treated conservatively to this point with {{1 2* 3}} months relief of symptoms. Presents today for recheck secondary to increased knee pain. Past Medical/Surgical History Reviewed today, otherwise unchanged per intake sheet. Physical Findings General Appearance: ? ? ? Well developed. ? ? ? In no acute distress. Musculoskeletal System: Knee: General/bilateral: ? ? ? No laxity of the knee. Right Knee: ? Medial aspect was tender on palpation. ? ? ? No erythema. ? ? ? No warmth. Left Knee: ? Medial aspect was tender on palpation. ? ? ? No erythema. ? ? ? No warmth. Musculoskeletal Scales: General/bilateral: ? Mild effusion noted. Neurological: ? ? ? Oriented to time, place, and person. Gait And Stance: ? ? ? Normal. Psychiatric: ? ? ? Mood was appropriate to the affect. Left knee 0-120 degrees of flexion with discomfort. Assessment ? Osteoarthritis of knee - Plan More than 50% of todays visit was spent on direct patient counseling regarding their knee condition and treatment options both operative with knee arthroplasty and non-operative, including oral medications and injection therapy. After discussion, my clinical decision was to go forth with an intra-articular cortisone injection. After explaining risks and benefits, under meticulous aseptic technique, the knee was injected with, 1cc of Kenalog 40mgs and 4 cc of Marcaine 1/4%. They tolerated the procedures well. Post injection precautions reviewed. Follow up with us in 3 months for further discussion of total knee replacement surgery versus continued conservative treatment. Sunny Burnette PA-C [address], [place], [address], [facility] 10/28/2023 12:12:00 02/10/2024 text/html I am seeing the patient today under the supervision of {{Pb Lujan} } who was available but who did not see the patient. Chief Complaint The patient presents today for recheck of {{left right*}} knee osteoarthritis. Is known to have knee arthritis treated conservatively to this point with {{1 2* 3}} months relief of symptoms. Presents today for recheck secondary to increased knee pain. Past Medical/Surgical History Reviewed today, otherwise unchanged per intake sheet. Physical Findings General Appearance: ? ? ? Well developed. ? ? ? In no acute distress. Musculoskeletal System: Knee: General/bilateral: ? ? ? No laxity of the knee. Right Knee: ? Medial aspect was tender on palpation. ? ? ? No erythema. ? ? ? No warmth. Left Knee: ? Medial aspect was tender on palpation. ? ? ? No erythema. ? ? ? No warmth. Musculoskeletal Scales: General/bilateral: ? Mild effusion noted. Neurological: ? ? ? Oriented to time, place, and person. Gait And Stance: ? ? ? Normal. Psychiatric: ? ? ? Mood was appropriate to the affect. Left knee 0-120 degrees of flexion with discomfort. Assessment ? Osteoarthritis of knee - Plan More than 50% of todays visit was spent on direct patient counseling regarding their knee condition and treatment options both operative with knee arthroplasty and non-operative, including oral medications and injection therapy. After discussion, my clinical decision was to go forth with an intra-articular cortisone injection. After explaining risks and benefits, under meticulous aseptic technique, the knee was injected with, 1cc of Kenalog 40mgs and 4 cc of Marcaine 1/4%. They tolerated the procedures well. Post injection precautions reviewed. Follow up with us in 3 months for further discussion of total knee replacement surgery versus continued conservative treatment. Sunny Burnette PA-C [address] [facility] [address], [place], [address], [facility] 02/10/2024 08:44:48 05/13/2024 text/html I am seeing the patient today under the supervision of {{Karma* Tai} } who was available but who did not see the patient. Chief ComplaintThe patient presents today for recheck of {{left right*}} knee osteoarthritis. Is known to have knee arthritis treated conservatively to this point with {{1 2* 3}} months relief of symptoms. Presents today for recheck secondary to increased knee pain. Past Medical/Surgical HistoryReviewed today, otherwise unchanged per intake sheet. Physical Findings General Appearance:? ? ? Well developed. ? ? ? In no acute distress.Musculoskele zamzam System:Knee:General/b ilateral: ? ? ? No laxity of the knee.Right Knee: ? Medial aspect was tender on palpation. ? ? ? No erythema. ? ? ? No warmth.Left Knee: ? Medial aspect was tender on palpation. ? ? ? No erythema. ? ? ? No warmth.Musculoskeleta l Scales:General/bilate ral: ? Mild effusion noted.Neurological:? ? ? Oriented to time, place, and person.Gait And Stance: ? ? ? Normal.Psychiatric:? ? ? Mood was appropriate to the affect. Left knee 0-120 degrees of flexion with discomfort. X-rays ordered obtained and reviewed today in the office of the right knee reveal end-stage medial compartment arthritis. Assessment? Osteoarthritis of knee - PlanMore than 50% of todays visit was spent on direct patient counseling regarding their knee condition and treatment options both operative with knee arthroplasty and non-operative, including oral medications and injection therapy. Follow-up with Dr. Parada for consideration of right total knee replacement Sunny Burnette PA-C [address], [place], [address], [facility] 05/26/2024 14:06:08 07/30/2024 text/html Patient is 58 ye ar old male, with chronic history of R knee pain and OA. Presents today for prehab visit for scheduled R TKA on 08/18/24. Reviewed post-operative mobility and mechanics with appropriate assistive device. Has 3 steps into home and 12 steps inside home (not needed immed p/o). Demonstrates good understanding of post-operative expectations and HEP. 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 Patient goals are to resume bike, pain free stairs, floor transfers, recreational pain free walking. H/o L TKR 07/01/23 good results, can kneel w knee pad Jacob Severino, PT [address], [place], [address], [facility] 07/30/2024 12:10:38
--- OUTSIDE RECORDS SUMMARY | 2024-08-04 10:52 | XMS_ITS | Patient Health Record ---
Author Organization [facility] Address [address] [place] [address] Care Team Providers Care Knitted Goods Shaper Name Role Phone Cruz Lay Primary Care Provider Unavailab Austin Woo Unavailable [phone] Allergies Allergen (clinical drug ingredient) Drug/Non Drug Allergy documented on EMR Reaction Allergy Type Onset Date Status Fish derivative (substance) Fish-derived Products swelling Drug Allergy Active Substance with penicillin structure and antibacterial mechanism of action (substance) Penicillins difficulty breathing Drug Allergy Active Reason For Referral No Information Medications Medication SIG (Take, Route, Frequency, Duration) Notes Start Date End Date Status Extra Depth Orthopedic Shoes (1 Pair) with Customized Heat Molded Multidensity Innersoles (3 Pair) as directed Dx: NIDDM/Polyneuropathy (E11.42), Hammertoe Foot Deformity (M20.41,M20.42), Preulcerative Skin Lesion(s) (L85.1 Active Atorvastatin Calcium 40 MG 1 tablet Orally Once a day Active Enbrel Active Vitamin D3 25 MCG (1000 UT) 1 capsule Orally Once a day Not-Taking Ozempic (1 MG/DOSE) Active Losartan Potassium 50 MG 1 tablet Orally Once a day Active Trulicity 0.75 MG/0.5ML as directed Subcutaneous Not-Taking Omeprazole 40 MG 1 capsule 30 minutes before morning meal Orally Once a day Active Multivitamin Adults 50+ Active metFORMIN HCl 500 MG 1 tablet with a krystal l Orally Once a day Active Methotrexate Sodium 2.5 MG as directed Orally Active Levothyroxine Sodium 25 MCG 1 tablet in the morning on an empty stomach Orally Once a day Not-Taking Ibuprofen 600 MG 1 tablet with food o r milk as needed Orally Three times a day Active hydrOXYzine HCl 25 MG 1 tablet as needed Orally Once a day Not-Taking Folic Acid 1 MG 1 tablet Orally Once a day Active Etanercept Not-Takin g buPROPion HCl 100 MG 1 tablet Orally Twi ce a day Not-Taking Social History Tobacco Use: Social History Observation Description Date Details (start date - stop date) Never Smoker NA - NA Tobacco Use/Smoking Question Answer Notes Are you a: nonsmoker Alcohol Screen Question Answer Notes Did you have a drink containing alcohol in the p ast year? No Points 0 Interpretation Negative Tobacco use other than smoking: Question Answer Notes Are you an other tobacco user? No Problems Problem Type SNOMED Code ICD Code Onset Dates Problem Status W/U Status Risk Notes Problem Acquired hammer toe of right foot (8659120903268924 ) Other hammer toe(s) (acquired), right foot (M20.41) Active confirmed Problem Acquired hammer toe of left foot (8480869438339568 ) Other hammer toe(s) (acquired), left foot (M20.42) Active confirmed Problem Polyneuropathy due to type 2 diabetes mellitus (728806823) Type 2 diabetes mellitus with diabetic polyneuropathy (E11.42) Active confirmed Vital Signs Blood pressure diastolic 82 mm Hg 05/13/2024 Height 5ft 9in in 05/13/2024 Blood pressure systolic 129 mm Hg 05/13/2024 Weight 300 lbs 05/13/2024 BMI 44.3 kg/m2 05/13/2024 Procedures Procedure Date Ordered Date Performed Result Body Sit e 09570-[id number] NAIL, 1-5 05/13/2024 N/A 29527-JLHP SKIN LESIONS, OVER 4 05/13/2024 N/A [id number] DYSTROPHIC NAILS ANY # 05/13/2024 N/A Encounters Encounter Location Date Provider Diagnosis [facility] [address] [address] 05/13/2024 Austin Munguia Type 2 diabetes mellitus with diabetic polyneuropathy E11.42 ; Other hammer toe(s) (acquired), right foot M20.41 ; Other hammer toe(s) (acquired), left foot M20.42 and Onychomycosis B35.1 Assessments Encounter Date Diagnosis (ICD Code) Assessment Notes Treatment Notes Treatment Clinical Notes Section Notes 05/13/2024 Other hammer toe(s) (acquired), right foot (ICD-10 - M20.41) Patient Educated with: DIABETIC FOOT CARE INSTRUCTIONS. pdf (DIABETIC FOOT CARE INSTRUCTIONS. pdf) 05/13/2024 Type 2 diabetes mellitus with diabetic polyneuropathy (ICD-10 - E11.42) 05/13/2024 Other hammer toe(s) (acquired), left foot (ICD-10 - M20.42) 05/13/2024 Onychomycosis (ICD-10 - B35.1) Plan Of Treatment Pending Test Test Name Order Date [id number] NAIL, 1-5 05/13/2024 20867-UYRA SKIN LESIONS, OVER 4 05/13/20 24 [id number] DYSTROPHIC NAILS ANY # Next Appt Details Provider Name:Austin Munguia , 05/13/2025 08:30:00 AM, [address], [address], [place], [address], Insurance Providers Payer Name Payer Address Payer Phone Subscriber Number Group Number Insured Name Patient Relationship to Insured Coverage Start Date Coverage End Date [facility] [employer] Claims [address] [place] [id number] [phone] [id number] Chucky Abarca Self - patient is the insured Medical (General) History Medical History History ICD Code covid-19 type II diabetes Vitamin D deficiency Psoriasis Hypercholesterolemia Bipolar disorder Depression Rheumatoid arthritis skin lesion Hypertension generalized anxiety disorder Lyme disease Osteoporosis Psoriasis/eczema Anxiety Back,Hip,and Knee pain Broken bones Joint implants/screws Surgical History Surgery Date(Month/Year) gastrectomy sleeve right shoulder replacement arthroscopic knee surgery colonoscopy knee replacement, right 2022
--- OUTSIDE RECORDS SUMMARY | 2024-08-04 10:52 | XMS_ITS ---
[facility] Address [address] [place] [address] Care Team Providers Care Nicu Rn Name Role Phone Cruz Lay Primary Care Provider Unavailab Austin Woo Unavailable [phone] Allergies Allergen (clinical drug ingredient) Drug/Non Drug Allergy documented on EMR Reaction Allergy Type Onset Date Status Fish derivative (substance) Fish-derived Products swelling Drug Allergy Active Substance with penicillin structure and antibacterial mechanism of action (substance) Penicillins difficulty breathing Drug Allergy Active REASON FOR VISIT At Risk Footcare, Toe Irritation Medications Medication SIG (Take, Route, Frequency, Duration) Notes Start Date End Date Status Omeprazole 40 MG 1 capsule 30 minutes before morning meal Orally Once a day Active Multivitamin Adults 50+ Active metFORMIN HCl 500 MG 1 tablet with a krystal l Orally Once a day Active Methotrexate Sodium 2.5 MG as directed Orally Active Ibuprofen 600 MG 1 tablet with food o r milk as needed Orally Three times a day Active Levothyroxine Sodium 25 MCG 1 tablet in the morning on an empty stomach Orally Once a day Not-Taking Folic Acid 1 MG 1 tablet Orally Once a day Active Atorvastatin Calcium 40 MG 1 tablet Orally Once a day Active Enbrel Active Ozempic (1 MG/DOSE) Active hydrOXYzine HCl 25 MG 1 tablet as needed Orally Once a day Not-Taking Etanercept Not-Takin g buPROPion HCl 100 MG 1 tablet Orally Twi ce a day Not-Taking Extra Depth Orthopedic Shoes (1 Pair) with Customized Heat Molded Multidensity Innersoles (3 Pair) as directed Dx: NIDDM/Polyneuropathy (E11.42), Hammertoe Foot Deformity (M20.41,M20.42), Preulcerative Skin Lesion(s) (L85.1 Active Vitamin D3 25 MCG (1000 UT) 1 capsule Orally Once a day Not-Taking Losartan Potassium 50 MG 1 tablet Orally Once a day Active Trulicity 0.75 MG/0.5ML as directed Subcutaneous Not-Taking Social History Tobacco Use: Social History [...] Are you an other tobacco user? No Vital Signs Height 5ft 9in in 05/13/2024 Weight 300 lbs 05/13/2024 BMI 44.3 kg/m2 05/13/2024 Blood pressure systolic 129 mm Hg 05/13/20 24 Blood pressure diastolic 82 mm Hg 024 Procedures Procedure Date Ordered Date Performed Result Body Sit e 48620-TGJNYRH NAIL, 1-5 05/13/2024 N/A 33341-RAUX SKIN LESIONS, OVER 4 05/13/2024 N/A [id number] DYSTROPHIC NAILS ANY # 05/13/2024 N/A Encounters Encounter Location Date Provider Diagnosis [facility] [address] [address] 05/13/2024 Austin Munguia Type 2 diabetes mellitus with diabetic polyneuropathy E11.42 ; Other hammer toe(s) (acquired), right foot M20.41 ; Other hammer toe(s) (acquired), left foot M20.42 and Onychomycosis B35.1 Assessments Encounter Date Diagnosis (ICD Code) Assessment Notes Treatment Notes Treatment Clinical Notes Section Notes 05/13/2024 Type 2 diabetes mellitus with diabetic polyneuropathy (ICD-10 - E11.42) 05/13/2024 Other hammer toe(s) (acquired), right foot (ICD-10 - M20.41) Patient Educated with: DIABETIC FOOT CARE INSTRUCTIONS. pdf (DIABETIC FOOT CARE INSTRUCTIONS. pdf) 05/13/2024 Other hammer toe(s) (acquired), left foot (ICD-10 - M20.42) 05/13/2024 Onychomycosis (ICD-10 - B35.1) Plan Of Treatment Medication Medication Name Sig Start Date Stop Date Notes Extra Depth Orthopedic Shoes (1 Pair) with Customized Heat Molded Multidensity Innersoles (3 Pair) as directed Dx: NIDDM/Polyneuropathy (E11.42), Hammertoe Foot Deformity (M20.41,M20.42), Preulcerative Skin Lesion(s) (L85.1 Treatment Notes Assessment Notes Other hammer toe(s) (acquired), right fo ot Patient Educated with: DIABETIC FOOT CARE INSTRUCTIONS.pdf (DIABETIC FOOT CARE INSTRUCTIONS.pdf) Pending Test Test Name Order Date [id number]-DYGURRX NAIL, 1-5 05/13/2024 66050-YQSE SKIN LESIONS, OVER 4 05/13/20 24 [id number] DYSTROPHIC NAILS ANY # Next Appt Details Follow Up: 1 Year, Reason: Provider Name:Austin Munguia , 05/13/2025 08:30:00 AM, [address] [facility], [address], [place], [address], Procedure Notes * Category Sub-Category Detail Notes Keratoma Treatment Parring or Cutting o f Benign Hyperkeratotic Lesion(s) (-57) More than 4 Lesions - Due to the at risk nature of the patients medical condition as documented in the exam findings, performance of this keratoderma treatment is medically necessary as its management by an unskilled/untrained nonprofessional would put this patients foot and overall health at risk. Therefore, the benign hyperkeratotic lesions, ( 10) in total, locations as stated and described in the exam ( SUB MTH (s) , 1 , B/L , SUB MTH (s) , 2 , B/L , SUB MTH (s) , 3 , B/L , SUB MTH (s) , 4 , B/L , Plantar, Heel(s) , B/L), were pared, and/or cut utilizing a sterile 15 blade, tissue nippers, and/or power dremel instrumentation by the physician of record - 19451 Debride Nails 1-5 Procedure: Due to the cli nical pathology outlined in the exam findings, performance of this nail treatment is medically necessary as its management by an unskilled/untrained nonprofessional would put this patients foot and overall health at risk. Therefore, debridement to affected nail(s), as described in exam ( TA, T1, T5), was performed exclusively by the physician of record to reduce/remove overall nail length, girth, thickness, subungual debris, and necrotic tissue, by manual and/or electrical means through the use of a nail nipper and/or dremel stylegrinder, to a more viable healthy nail plate or bed tissue 5 nails or fewer in number. Silver nitrate was used for any petechial bleeding as necessary. Definitive antifungal treatment options, both pharmaceutical and surgical, have been reviewed and discussed with the patient. The patient solely prefers the use of intermittent/as needed professional debridement services for their nail condition and understands that additional periodic treatments may be required as necessary to maintain effective symptomatic relief - 87111 Nail Reduction Nail Reduction (-27) Trimming o f all dystrophic nails - Due to the at risk nature of the patients medical condition as documented in the exam findings, performance of this nail treatment is medically necessary as its management by an unskilled/untrained nonprofessional would put this patients foot and overall health at risk. Therefore, the dystrophic nails, in locations as stated and described in the exam ( T2, T3, T4, T6, T7, T8, T9), were debrided by the phisician of record to reduce/remove overall nail length and girth, by manual and electrical means with use of a nail nipper and/or dremel, to more viable healthy nail plate or bed tissue - G0127 Progress Notes * CECETAMMIE ChuckyDOB:1965 (58 yo M)Acc No.[id number]:05/13/2024 Progress Note Patient:?Chucky TAMEZ Provider:?Austin Munguia DPM :1965???Age:58 Y???Sex:Male Adilson e:05/13/2024 Address:[address] [place] [id number] Pcp:Cruz Lay Subjective: * Chief Complaints: * ???At Risk FootcareToe Irrit ation * HPI: ???At Risk footcare:?Pt States Last PCP Visit:?Date?02/13/2024 ???Toe pain:?Location:?B/L feet.?Duration:?several years.?Course:?worse.?Aggravated by:?shoes, any pressure.?Treatments:?change in shoes.? * ROS:?General/Constitutional:?Nausea?denies.?Vomiting?denies.?Hunger Thirst?denies.?Loss appetite?denies.?Chills?denies.?Fatigue?denies.?Fever?denies.?Night Sweats?denies.?Unexplained weight loss?denies.?Unexplained weight gain?denies.?HEENTM:?Dentures?denies.?Dizziness?denies.?Glasses/contacts?admits.?Retinopathy?den ies.?Blurred/double vision?denies.?TMJ?denies.?Discharge/drainage?denies.?Implants?denies.?Sore throat?denies.?Dental implants?denies.?Hard of hearing ?admits.?Difficulty chewing/swallowing/speaking?denies.?Nose bleeds?denies.?Sore mouth?denies.?Respiratory:?On O xygen?denies.?Pneumonia/pleurisy?denies.?Bronchitis?denies.?Emphysema?denies.?Co ughing?denies.?Cough blood?denies.?Shortness of breath?denies.?Wheezing?denies.?Cardiovascular:?Pacemaker?denies.?MVP?denies.?WPW?denies.?CHF?denies.?Heart attack?denies.?Septal defect?denies.?Rapid beat?denies.?Chest pain ?denies.?Atrial Fib.?denies.?Murmur/Palpitations?denies.?Gastrointestinal:?Hemorrhoids?denies.?Stomach/Abdominal pain?denies.?Dark blood stool?denies.?Irritable bowel ?denies.?Constipation?denies.?Diarrhea?denies.?Hematology:?Swelling?denies.?Clots?denies.?Varicose Veins?denies.?Bruising?denies.?Bleeding problem?denies.?Genitourinary:?Blood urine?denies.?Frequent/Painfu/urination/bladder control?denies.?Kidney stones?denies.?Infection (UTI)?denies.?Nephropathy?denies.?sex trans dis (STD)?denies.?Prostate?denies.?Musculoskeletal:?Hammertoes?admits.?Bunions?denies.?Back Pain?denies.?Muscle Cramps/ Resting?admits.?Muscle cramps / walking?admits.?Generalized aches and pains?admits.?Weakness?admits.?Integ.:?Sosa?denies.?Scars?denies.?Corns/calluses?admits.?Ingrown nails?denies.?Painful nails?denies.?Open Sores?denies.?Rashes?admits.?Neurologic:?Difficulty sleeping?denies.?Brain disorder?denies.?Numbness?admits.?Balance t rouble?admits.?Confusion?denies.?Fainting/blackouts?denies.?Tingling?admits.?Júnior mors?denies.? * Medical History:? * Surgical History:?gastrectom y sleeve right shoulder replacement arthroscopic knee surgery colonoscopy knee replacement, right 2022 * Hospitalization/Major Diagno stic Procedure:?No Hospitalization History. * Family History:?Father: kidn ey/liver disease, foot problems, poor circulation, diagnosed with Diabetic - NIDDM, Unspecified essential hypertension, Family history of arthritis.?Mother: diagnosed with Unspecified heart disease, Unspecified cerebral artery occlusion with cerebral infarction.? * Social History:?Tobacco Use:?Tobacco Use/Smoking?Are you a:?nonsmoker ?Tobacco use other than smoking?Are you an other tobacco user??No ???Drugs/Alcohol:?Drugs?Have you used drugs other than those for medical reasons in the past 12 months??No ?Alcohol Screen?Did you have a drink containing alcohol in the past year??No ?Points?0 ?Interpretation?Negative ???Miscellaneous:?Caffeine: yes. ?Exercise: yes, gym, swimming, cycling. ?Marital status: single. ?Occupation: Disabled, works a little. * Medications:?TakingOzempic ( 1 MG/DOSE) Enbrel Atorvastatin Calcium 40 MG Tablet 1 tablet Orally Once a day Folic Acid 1 MG Tablet 1 tablet Orally Once a day Ibuprofen 600 MG Tablet 1 tablet with food or milk as needed Orally Three times a day Methotrexate Sodium 2.5 MG Tablet as directed Orally metFORMIN HCl 500 MG Tablet 1 tablet with a meal Orally Once a day Multivitamin Adults 50+ Omeprazole 40 MG Capsule Delayed Release 1 capsule 30 minutes before morning meal Orally Once a day Losartan Potassium 50 MG Tablet 1 tablet Orally Once a day Extra Depth Orthopedic Shoes (1 Pair) with Customized Heat Molded Multidensity Innersoles (3 Pair) as directed Dx: NIDDM/Polyneuropathy (E11.42), Hammertoe Foot Deformity (M20.41,M20.42), Preulcerative Skin Lesion(s) (L85.1 Taking Ozempic (1 MG/DOSE) Taking Enbrel Taking Atorvastatin Calcium 40 MG Tablet 1 tablet Orally Once a day Taking Folic Acid 1 MG Tablet 1 tablet Orally Once a day Taking Ibuprofen 600 MG Tablet 1 tablet with food or milk as needed Orally Three times a day Taking Methotrexate Sodium 2.5 MG Tablet as directed Orally Taking metFORMIN HCl 500 MG Tablet 1 tablet with a meal Orally Once a day Taking Multivitamin Adults 50+ Taking Omeprazole 40 MG Capsule Delayed Release 1 capsule 30 minutes before morning meal Orally Once a day Taking Losartan Potassium 50 MG Tablet 1 tablet Orally Once a day Taking Extra Depth Orthopedic Shoes (1 Pair) with Customized Heat Molded Multidensity Innersoles (3 Pair) as directed Dx: NIDDM/Polyneuropathy (E11.42), Hammertoe Foot Deformity (M20.41,M20.42), Preulcerative Skin Lesion(s) (L85.1 Not-Taking/PRNTrulicity 0.75 MG/0.5ML Solution Pen-injector as directed Subcutaneous Vitamin D3 25 MCG (1000 UT) Capsule 1 capsule Orally Once a day buPROPion HCl 100 MG Tablet 1 tablet Orally Twice a day Etanercept hydrOXYzine HCl 25 MG Tablet 1 tablet as needed Orally Once a day Levothyroxine Sodium 25 MCG Tablet 1 tablet in the morning on an empty stomach Orally Once a day Medication List reviewed and reconciled with the patientNot-Taking/PRN Trulicity 0.75 MG/0.5ML Solution Pen-injector as directed Subcutaneous Not-Taking/PRN Vitamin D3 25 MCG (1000 UT) Capsule 1 capsule Orally Once a day Not-Taking/PRN buPROPion HCl 100 MG Tablet 1 tablet Orally Twice a day Not-Taking/PRN Etanercept Not-Taking/PRN hydrOXYzine HCl 25 MG Tablet 1 tablet as needed Orally Once a day Not-Taking/PRN Levothyroxine Sodium 25 MCG Tablet 1 tablet in the morning on an empty stomach Orally Once a day Medication List reviewed and reconciled with the patient * Allergies:?Penicillins: diff iculty breathingFish-derived Products: swellingyes[Allergies Verified] Objective: * Vitals:?Ht: 5ft 9in, Wt:300, BMI:44.3, Shoe size: 12, BP:129/82mm Hg, BS: did not test, Ht-cm: 175.26 cm, Wt-k.08 kg. * Examination: ???Neurological: ?SENSORY:?Pt relates , paresthesia , tingling , at rest , especially in the evening , B/L , Neurological exam reveals intact sensorium, pain sensation normal, vibration sensation intact, pinprick sensation is normal in the lower extremities.?Nails: ?NAILS are:?Elongated, overgrown, dystrophic, lytic, greater than 3mm thick, discolored and friable with crumbly malodorous subungual debris, TA, T1, T5, all other nails not described with characteristics as possessing mycosis are elongated, overgrown, and dystrophic ( T2, T3, T4, T6, T7, T8, T9).?Dermatologic: ?SKIN FINDINGS:?Skin exam reveals Keratotic lesion(s) located at , SUB MTH (s) , 1 , B/L , SUB MTH (s) , 2 , B/L , SUB MTH (s) , 3 , B/L , SUB MTH (s) , 4 , B/L , Plantar, Heel(s) , B/L.?Orthopedic: ?MUSCLE STRENGTH:?5/5 all groups in a symmetrical fashion, B/L.?FOOT MORPHOLOGY:?Pes Planus structure, (-) Charcot collapse/destruction noted at MTJ.?DIGITAL DEFORMITIES:?Digital contracture, PIPJ, 2-5 B/L, incompl-reducible to non-reducible (2nd toes, B/L), with WB or to push-up test, push-up test, no over, nor underlapping, with evidence of shoe producing skin irritation.?FOOTWEAR:?worn, non-supportive, shoe gear properties exacerbate patient's foot/toe deformity , shoe gear properties exacerbate patients foot/toe deformity.?Vascular: ?DP PULSES (B):?2/4, B/L.?PT PULSES (B):?2/4, B/L.?CAPILLARY FILL TIME:?immediate, all digits, B/L.?TROPHIC CONDITION-TEXTURE/ELASTICITY/TURGOR/HAIR GROWTH (B):?normal, B/L.?TEMPERTURE GRADIENT (C):?normal, warm to cool, proximal to distal, B/L, B/L.?PIGMENTATION:?normal, B/L.?EDEMA (C):?absent, B/L.?Ophthalmology Referral: ?DIABETES EYE EXAM?Procedure Performed:?Yes ?Date of Exam Performed?04/08/2024 ?Diabetic Retinopathy Screening:?Yes ?Retinal Screening Performed:?Yes ?Findings of Diabetic Eye Exam:?no retinopathy?General Examination: ?GENERAL APPEARANCE:?Reveals a pleasant, alert, well nourished, well- developed, well hydrated individual, who demonstrates proper attention to hygiene/body habitus, and is in no acute distress, Pt serves as own historian for office visit today.?ORIENTED:?person, place, and time.?FOOT EXAM:?Lower Extremity Neurological Exam performed:?Yes ?Date?05/13/2024 ?Footwear Evaluation?Footwear Evaluation performed:?Yes??? Assessment: * Assessment: 1.?Other hammer toe(s) (acqu ired), right foot - M20.41???Specify :Chronic problem, Worse (4),Rx Management (4)???2.?Type 2 diabetes mellitus with diabetic polyneuropathy - E11.42 (Primary) ??3.?Other hammer toe(s) (acquired), left foot - M20.42???Specify :Chronic problem, Worse (4),Rx Management (4)???4.?Onychomycosis - B35.1??? Plan: * Treatment: 2.?Other hammer toe(s) (acqu ired), right foot? Start Extra Depth Orthopedic Shoes (1 Pair) with Customized Heat Molded Multidensity Innersoles (3 Pair), as directed, Dx: NIDDM/Polyneuropathy (E11.42), Hammertoe Foot Deformity (M20.41,M20.42), Preulcerative Skin Lesion(s) (L85.1, 1, Refills 0.?? Notes: Patient Educated with: DIABETIC FOOT CARE INSTRUCTIONS.pdf (DIABETIC FOOT CARE INSTRUCTIONS.pdf)?? * Procedures:?Debride Nails 1-5:?Procedure:?Due to the clinical pathology outlined in the exam findings, performance of this nail treatment is medically necessary as its management by an unskilled/untrained nonprofessional would put this patients foot and overall health at risk. Therefore, debridement to affected nail(s), as described in exam (?TA,?T1,?T5), was performed exclusively by the physician of record to reduce/remove overall nail length, girth, thickness, subungual debris, and necrotic tissue, by manual and/or electrical means through the use of a nail nipper and/or dremel stylegrinder, to a more viable healthy nail plate or bed tissue 5 nails or fewer in number. Silver nitrate was used for any petechial bleeding as necessary. Definitive antifungal treatment options, both pharmaceutical and surgical, have been reviewed and discussed with the patient. The patient solely prefers the use of intermittent/as needed professional debridement services for their nail condition and understands that additional periodic treatments may be required as necessary to maintain effective symptomatic relief - 75463.?Keratoma Treatment:?Parring or Cutting of Benign Hyperkeratotic Lesion(s)?(-57) More than 4 Lesions - Due to the at risk nature of the patients medical condition as documented in the exam findings, performance of this keratoderma treatment is medically necessary as its management by an unskilled/untrained nonprofessional would put this patients foot and overall health at risk. Therefore, the benign hyperkeratotic lesions, ( 10) in total, locations as stated and described in the exam (?SUB MTH (s)?,?1?,?B/L?,?SUB MTH (s)?,?2?,?B/L?,?SUB MTH (s)?,?3?,?B/L?,?SUB MTH (s)?,?4?,?B/L?,?Plantar,?Heel(s)?,?B/L), were pared, and/or cut utilizing a sterile 15 blade, tissue nippers, and/or power dremel instrumentation by the physician of record - 34997.?Nail Reduction:?Nail Reduction?(-27) Trimming of all dystrophic nails - Due to the at risk nature of the patients medical condition as documented in the exam findings, performance of this nail treatment is medically necessary as its management by an unskilled/untrained nonprofessional would put this patients foot and overall health at risk. Therefore, the dystrophic nails, in locations as stated and described in the exam (?T2, T3, T4, T6, T7, T8, T9), were debrided by the phisician of record to reduce/remove overall nail length and girth, by manual and electrical means with use of a nail nipper and/or dremel, to more viable healthy nail plate or bed tissue - G0127.? * Procedure Codes:?08930 TRIM SKIN LESIONS, OVER 4, Modifiers: XS 24777 DEBRIDE NAIL, 1-5, Modifiers: XS G0127 TRIMMING DYSTROPHIC NAILS ANY #, Modifiers: XS * Preventive Medicine:? ??Counseling:?Discussion:?-14: Office or other outpatient visit for the evaluation and management of an established patient, which required a medically appropriate history and/or examination and MODERATE level of DECISION MAKING for: 1 OR MORE CHRONIC PROBLEM(S) THATS WORSENING, 2 STABLE CHRONIC PROBLEMS, A NEWLY DIAGNOSED PROBLEM WITH UNCERTAIN PROGNOSIS, AN ACUTE COMPLICATED INJURY WITH MULTIPLE TREATMENT OPTIONS, OR AN ACUTE PROBLEM WITH ACCOMPANYING SYSTEMIC SYMPTOMS, THAT POSE(S) A MODERATE RISK OF MORBIDITY. THIS CONDITION MAY ALSO INCLUDE RX DRUG MANAGEMENT, OR A DECISON FOR MINOR SURGERY. The visit on the day of the encounter encompassed interpreting the data and educating the patient as to the nature of their condition, treatment options available according to their individual PMH, meds, allergies, and overall health/living conditions, as well as any potential risks or complications that may occur from a failure to adhere to, and participate in, the recommended course of therapy. The discussion included a complete verbal, and/or written explanation of the examination results, any x-rays taken, the proposed diagnosis, and outline of the treatment plan. A schedule for future care needs was also explained. The patient verbalized an understanding of the instructions at this time and agreed to be an active participant in their treatment. If the patient should think of any questions or concerns after the visit, I have encouraged the patient to call the office.?Digital Surgery:?Digital surgery was discussed with the patient, We elected to try conservative treatment at the present time, due to the patients medical history and increased asssociated post-operative risks.?Digital Treatment:?HT- I explained to the patient the possible etiologies of Hammertoes, including genetics/foot type/shoegear/activity level/exercise routine and the risks/benefits of all the different treatment options for their pain including: No treatment at all, Rest, Ice, New/supportive/wider/deeper Shoegear, Digital Padding/Strapping/Taping/Bracing/Gel protective sleeves, Foot/Ankle AFO Bracing, Stretching exercises, Deep Tissue Massage, Arch support/shoe inserts with splay metatarsal padding, and Custom orthoses. I insisted that any digital devices be removed daily and not worn overnight for safety. The patient is to carefully examine the toes daily for any skin irritation while using any splinting or padding device. The advantages and disadvantages of each option were discussed and the patients questions re: shoegear, padding, custom vs prefabricated inserts, activity level, and consistency in home treatment regimens for optimal success were answered to their verbally confirmed satisfaction.?Shoe Gear Counseling:?SHOE Rx - The patient was counseled in great detail on their muscoloskeletal foot and toe deformities which coincided with the dermatological presentations visualized on exam. We discussed how their deformities put the integrity of their feet at risk for potential pedal complications which makes the accomidative diabetic shoes and cutomizable inserts medically necessary. We discussed the different shoe and insert treatment types and options, as well as the important advantages for adhering to regularly wearing these accomidative devices daily. The patient was made aware of the fact that a failure to abide by these recommedations may be deleterious to their foot health as they are able to prevent many pedal complications such as skin irritation, skin ulceration, infection, and even loss of toe/foot/leg/or life. Time was also spent with the patient dispensing and discussing proper diabetic footcare techniques including daily skin moisturization, daily foot inspection for any interruption in skin integrity including open lesions, or sign of infection such as redness/malodor/drainage/swelling. Also discussed and recommended were procedures regarding daily shoe inspection for the presence of internal foreign bodies as well as any visualized irregular shoe or insert wear. Patient questions re: shoes, inserts, and self foot inspections were answered to their satisfaction as the patient verbally confirmed a full understanding of the above information. A Rx for Extra Depth Orthopedic Shoes with 3 pair of custom heat-molded inserts was dispensed.? ??Screening/Special Tests:?Fall Risk?Screening:?No falls in the past year ?FALLS: Screening for Future Fall Risk?Have you had any falls with injury in the past year??No * Follow Up:?1 Year * Images: * Sign off status: Completed true * Provider:?Austin Munguia DPM Date:?2023 Generated for Amanda wyman/Frank/Magi on:?08/04/2024 10:52 AM EDT History and Physical Notes * HPI (History of Present Illness) Category Sub-Category Detail Notes Category Not es Toe pain Location: B/L feet Duration: several years Course: worse Aggravated by: shoes, any pressure Treatments: change in shoes At Risk footcare Pt States Last PCP Visit: Date: 4 Examination Category Sub-Category Detail Notes Category Not es Neurological SENSORY: Pt relates , par esthesia , tingling , at rest , especially in the evening , B/L , Neurological exam reveals intact sensorium, pain sensation normal, vibration sensation intact, pinprick sensation is normal in the lower extremities Dermatologic SKIN FINDINGS: Skin exam reveal s Keratotic lesion(s) located at , SUB MTH (s) , 1 , B/L , SUB MTH (s) , 2 , B/L , SUB MTH (s) , 3 , B/L , SUB MTH (s) , 4 , B/L , Plantar, Heel(s) , B/L Orthopedic FOOT MORPHOLOGY: Pes Planus stru cture, (-) Charcot collapse/destruction noted at [facility]J FOOTWEAR: worn, non-supportive , shoe gear properties exacerbate patient's foot/toe deformity , shoe gear properties exacerbate patients foot/toe deformity DIGITAL DEFORMITIES: Digital contracture , PIPJ, 2-5 B/L, incompl-reducible to non-reducible (2nd toes, B/L), with WB or to push-up test, push-up test, no over, nor underlapping, with evidence of shoe producing skin irritation MUSCLE STRENGTH: 5/5 all groups in a symmetrical fashion, B/L General Examination GENERAL APPEARANCE: Reveals a pleasant, alert, well nourished, well-developed, well hydrated individual, who demonstrates proper attention to hygiene/body habitus, and is in no acute distress, Pt serves as own historian for office visit today FOOT EXAM: Lower Extremity Neurological Exa m performed:: Yes Date: 05/13/2024 ORIENTED: person, place, and t [place] Footwear Evaluation Footwear Evaluation performe d:: Yes Ophthalmology Referral DIABETES EYE EXAM Procedure Perform ed:: Yes ?Date of Exam Performed: 04/08/2024 Diabetic Retinopathy Screening:: Yes Retinal Screening Performed:: Yes Findings of Diabetic Eye Exam:: no retin opathy Vascular DP PULSES (B): 2/4, B/L PT PULSES (B): 2/4, B/L CAPILLARY FILL TIME: immediate, all digi ts, B/L TEMPERTURE GRADIENT (C): normal, warm to cool, proximal to distal, B/L, B/L TROPHIC CONDITION-TEXTURE/ELASTICITY/TURGOR/HAIR GROWTH (B): normal, B/L EDEMA (C): absent, B/L PIGMENTATION: normal, B/L Nails NAILS are: Elongated, overg rown, dystrophic, lytic, greater than 3mm thick, discolored and friable with crumbly malodorous subungual debris, TA, T1, T5, all other nails not described with characteristics as possessing mycosis are elongated, overgrown, and dystrophic ( T2, T3, T4, T6, T7, T8, T9)
--- OUTSIDE RECORDS SUMMARY | 2024-08-04 10:52 | XMS_ITS | Clinical Summary ---
Author Organization [facility] Address [address] [place] [address] Care Team Providers Care Manager Medicare Marketing Name Role Phone Sarah Gaspar LIZ Primary Care Provider [phone] Source Comments PLEASE NOTE, if this patient is a minor, it may be UNLAWFUL to discuss sensitive information that is contained in these records (such as FAMILY PLANNING, MENTAL HEALTH or SUBSTANCE ABUSE) with the minor patient's parent or other person without the patient's specific authorization.[facility] Allergies Active Allergy Reactions Criticality Noted Date Comments Penicillins 03/24/2013 Medications blood sugar diagnostic (FREESTYLE TEST) stripsIndication s:DM2 (diabetes mellitus, type 2) ([facility]) as needed for high blood sugar. 100 Each 3 3 Active lancetsIndicatio ns:DM2 (diabetes mellitus, type 2) ([facility]) TID 100 Each 3 3 Active methotrexate 2.5 mg tablet Take 2.5 mg by mouth. 6 tabs tabs by mouth weekly Active clonazePAM (KLONOPIN) 0.5 mg tablet Take 0.5 mg by mouth 4 (four) times daily as needed for anxiety. Active buPROPion (WELLBUTRIN XL) 300 mg 24 hr tablet Take 450 mg by mouth every morning. Swallow whole. Do not crush or chew. Active atorvastatin (LIPITOR) 20 mg tablet Take 20 mg by mouth once daily. Active folic acid (FOLVITE) 1 mg tablet Take 1 mg by mouth once daily. Active metFORMIN (GLUCOPHAGE) 500 mg tabletIndication s:DM2 (diabetes mellitus, type 2) ([facility]) Take 1 Tab by mouth 2 (two) times daily with a meal. 60 Tab 3 4 Active metoprolol (TOPROL XL) 100 mg 24 hr tabletIndication s:hypertension Take 1 Tab by mouth once daily. Indications: Hypertension 30 Tab 2 4 Active lisinopril (PRINIVIL,ZESTRI L) 10 mg tabletIndication s:HTN (hypertension) Take 1 Tab by mouth once daily. 30 Tab 3 4 Active omeprazole (PRILOSEC) [address] Annika ns:GERD (gastroesophagea l reflux disease) Take 1 Cap by mouth every morning before breakfast. Do not crush or chew. 30 Cap 2 4 Active sitagliptan (JANUVIA) 100 mg tabletIndication s:DM2 (diabetes mellitus, type 2) ([facility]) Take 1 Tab by mouth once daily. 30 Tab 3 4 Active senna-docusate (SENNA-S) 8.6-50 mg per tabletIndication s:Constipation Take 2 Tabs by mouth once daily as needed for constipation. 60 Tab 3 5 Active lamoTRIgine (LAMICTAL) 25 mg tablet TAKE 1 TABLET BY MOUTH ONCE DAILY 30 Tab 2 5 Active citalopram (CELEXA) 10 mg tablet Take 10 mg by mouth once daily. Active oxyCODONE-acetam inophen (PERCOCET) 5-325 mg per tabletIndication s:Back pain Take 1 Tab by mouth every 6 (six) hours as needed for pain (for severe pain, otherwise take tylenol or advil). 23 Tab 0 5 Active Bisacodyl 5 mg tabIndications:C onstipation, unspecified constipation type Take 5 mg by mouth 2 (two) times daily as needed (constipation). 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 GERD (gastroesophageal reflux disease) 4 Bipolar 2 disorder ([facility]) 06/23/2013 Diabetes ([facility]) 03/24/2013 Osteoarthritis 03/24/2013 Psoriatic arthritis ([facility]) 03/24/2013 Overview (03/24/2013): Hands, elbow, feet, knees, shoulders HTN (hypertension) 03/24/2013 Depression 03/24/2013 Morbidly obese (HCC-CMS) 03/24/2013 Immunizations Name Administration Dates Next Due INFLUENZA, SEASONAL, INJECTABLE 04/14/2013 Family History Medical History Relation Name Comments Depression Father Kidney disease Father Asthma Maternal Aunt Stroke Maternal Grandfather Arthritis Maternal Grandmother Asthma Maternal Grandmother Cancer Maternal Uncle pancreatic Depression Mother Heart Problems Mother High Cholesterol Mother Asthma Paternal Aunt Asthma Paternal Grandmother Relation Name Status Comments Father Maternal Aunt Maternal Grandfather Maternal Grandmother Maternal Uncle Mother Paternal Aunt Paternal Grandmother Social History Tobacco Use Types Packs/Day Years Used Date Smoking Tobacco: Never Smokeless Tobacco: Never Alcohol Use Standard Drinks/Week Comments No 0 (1 standard drink = 0.6 oz pur e alcohol) Social Connections Answer Date Recorded Social Connections and Isolation 0 01/17/2019 Financial Resource Strain Answer Date R ecorded Financial Resource Strain 0 2018 Stress Answer Date Recorded Stress 0 01/17/2019 Physical Activity Answer Date Recorded Physical Activity 0 01/17/2019 Food Insecurity Answer Date Recorded Food 0 01/17/2019 Transportation Needs Answer Date Record ed Transportation 0 01/17/2019 Housing Stability Answer Date Recorded Housing 0 01/17/2019 Safety and Environment Answer Date Myron rded Safety 0 01/17/2019 Utilities Answer Date Recorded Utilities 0 01/17/2019 Employment Answer Date Recorded Employment 0 01/17/2019 Sex and Gender Information Value Date Recorded Sex Assigned at Not on file Legal Sex Male 6:58 AM PDT Gender Identity Not on file Sexual Orientation Not on file Last Filed Vital Signs Vital Sign Reading Time Taken Comments Blood Pressure 113/81 09/10/2014 3:53 PM EDT Pulse 109 09/10/2014 3:53 PM EDT Temperature 36.4 ??C (97.6 ??F) 09/10/2014 3:53 PM ED T Respiratory Rate 16 09/10/2014 3:53 PM EDT Oxygen Saturation 96% 06/07/2014 11:26 AM EST Inhaled Oxygen Concentration - - Weight 154.7 kg (341 lb) 09/10/2014 3:53 PM EDT Height 173.4 cm (5' 8.25 ) 06/07/2014 11:[address] Body Mass Index 51.47 06/07/2014 11:26 AM EST Plan of Treatment Not on file Insurance [facility] PLAN Member Subscriber Plan / Payer (Ef fective 2013-Present) Name:Chucky Abarca Relation to Subscriber:Self Name:Chucky Abarca Payer ID:[id number] Group ID:[id number] Type:Medicaid Address: [facility] [address] [place] [address] Care Teams Manager Medicare Marketing Relationship Specialty Start Date End Date Sarah Gaspar NP [phone] [place] [address] PCP - General Internal Medicine 03/24/13
--- OUTSIDE RECORDS SUMMARY | 2024-08-04 10:52 | XMS_ITS | Continuity of Care Document ---
Author Organization [facility] Address [address] [place] [address]- Care Team Providers Care Corporate Manager Name Role Phone Cruz Padron Primary Care Physician Encounter [facility] [facility] [place] [id number] Date(s): 07/27/24 - 08/03/24 [facility] [address] [place], [place] [address] Attending Physician: Kamari St DO Referring Physician: Endy Parada MD Encounter Type: Office Visit Allergies, Adverse Reactions, Alerts Substance Criticality Severity Reaction Reaction Severity Status penicillins unsure Active Fish 1 UNKNOWN Active 1Pt states that he strongly dislikes eating all seafood. Immunizations Given and Recorded Vaccine Date Status Refusal Reason pneumococcal 23-valent vaccine 09/12/12 Given Medications atorvastatin 10 mg oral tablet 1 tablet = 10 mg, By Mouth, Daily in AM, 0 Refills, Maintenance, 06/04/19 12:02:00 PM EST Start Date: 06/04/19 Status: Ordered Repeat number: 1 buPROPion 100 mg/12 hours (SR) oral tablet, extended release 1 tablet = 100 mg, By Mouth, Daily, # 180 tablet, 0 Refills, Maintenance, 06/18/23 8:43:00 AM EST, ER Tablet, Partial fill upon patient request if the prescription is for a schedule II opioid drug. Start Date: 06/18/23 Status: Ordered Quantity: 180.0 Unit: tablet Repeat number: 1 Colace Capsule 100 mg, 1, capsule, By Mouth, 2 times a day, PRN, Refills 0, Maintenance, as needed for constipation, 07/02/23 8:27:00 AM EST, Partial fill upon patient request if the prescription is for a schedule IIopioid drug. Start Date: 07/02/23 Status: Ordered Repeat number: 1 folic acid 1 mg oral tablet 1 tablet = 1 mg, By Mouth, Daily, # 30 tablet, 0 Refills, Maintenance, 07/05/14 5:22:55 PM EST, Tablet, [id number] Start Date: 07/05/14 Status: Ordered Quantity: 30.0 Unit: tablet Repeat number: 1 losartan 50 mg oral tablet 50 mg, 1, tablet, By Mouth, Daily in AM, Refills 0, Maintenance, 06/04/19 12:03:00 PM EST Start Date: 06/04/19 Status: Ordered Repeat number: 1 metformin 500 mg oral tablet 1 each = 500 mg, By Mouth, 2 times a day, # 60 tablet, 0 Refills, Maintenance, 05/14/13 3:17:54 PM EST, Tablet Start Date: 05/14/13 Status: Ordered Quantity: 60.0 Unit: tablet Repeat number: 1 methotrexate 2.5 mg oral tablet 6 tablet = 15 mg, By Mouth, Every week, # 4 tablet, 0 Refills, Maintenance, 08/10/13 8:23:30 AM EDT,Tablet Start Date: 08/10/13 Status: Ordered Quantity: 4.0 Unit: tablet Repeat number: 1 omeprazole 20 mg oral delayed release tablet 2 tablet = 40 mg, By Mouth, Daily, # 120 tablet, 0 Refills, Maintenance, 08/10/13 8:01:37 AM EDT, ECTablet Start Date: 08/10/13 Status: Ordered Quantity: 120.0 Unit: tablet Repeat number: 1 Vitamin D3 1000 intl units oral capsule 1 capsule = 25 mcg, By Mouth, Daily, # 75 capsule, 0 Refills, Maintenance, 06/18/23 8:43:00 AM EST, Capsule, Partial fill upon patient request if the prescription is for a schedule II opioid drug. Start Date: 06/18/23 Status: Ordered Quantity: 75.0 Unit: capsule Repeat number: 1 Problem List Condition Confirmation Course Effective Dates Status Health St atus Informant Depression Confirmed Active Diabetes mellitus Confirmed Active GERD (gastroesophageal reflux disease) Confirmed Active Hearing loss Confirmed Active Hx of cocaine abuse Confirmed Active HTN (hypertension) Confirmed Active Lyme disease Hx Confirmed Active YARIEL (obstructive sleep apnea) Confirmed Active Psoriatic arthritis Confirmed Active Severe obesity Confirmed Active Vital Signs Most recent to oldest [Reference Range]: 1 Height 176 cm (07/27/24 11:10 AM) Weight 147.8 kg (07/27/24 11:10 AM) Oxygen Saturation [94-100 %] 99 % (07/27/24 11:10 AM) Pulse Rate [55-90 bpm] 72 bpm (07/27/24 11:10 AM) Body Mass Index [18.5-24.99 kg/m2] 47.71 kg/m2 *>HHI* (07/27/24 11:10 AM) Blood Pressure [90-138/55-84 mm Hg] 135/ 77mm Hg (07/27/24 11:10 AM) Respiratory Rate [16-30 br/min] 18 br/mi n (07/27/24 11:10 AM) Mode of Delivery (Oxygen) Room air (07/27/24 11:10 AM) Blood pressure sites Arm, left (07/27/24 11:10 AM) Weight Obtained Via Standing scale (07/27/24 11:10 AM) Social History Social History Type Response Smoking Status Never (less than 100 in lifetime) entered on: 06/18/23 Sex Sex Representation Male (finding) EKG study * Event Display: ECG 12-Lead Authored Date: Please click on pdf link to open report * Event Display: ECG 12-Lead Authored Date: Ventricular Rate: 72 BPM Atrial Rate: 72 BPM P-R Interval: 192 ms QRS Duration: 92 ms Q-T Interval: 382 ms QTC Calculation(Bazett): 418 ms P Ventress: 37 degrees R Ventress: -17 degrees T Ventress: 61 degrees Normal sinus rhythm Normal ECG When compared with ECG of 18-Jun-2023 08:43, No significant change was found Confirmed by MISTY WHITTEN MD ([id number]) on 07/27/2024 12:15:40 PM [place]: MISTY WHITTEN MD Patient Care team information Care Team Personnel Name: Juju Sparks RN Position: Gurdeep Cool RN Member Role: Primary Care Nurse Name: Cruz Padron Position: Reference Physician Member Role: PCP Address: [address] [place] [address] [address] [place] [id number]- Telecom: Name: Marci Oseguera RN Position: BHGurdeep KLEIN RN Member Role: Primary Care Nurse Name: Mulu Jones RN Position: [facility] RN Member Role: Primary Care Nurse Name: Luis Arango RN Position: [facility] RN Member Role: Primary Care Nurse Name: Merlene Baer RN Position: [facility] RN Member Role: Primary Care Nurse Care Team Related Persons Name: GAIL TAMEZCE Insurance Providers Guarantor name: WARREN [facility] Information #: 1 Payer: [employer] Member Number: [id number] Policy Number: NA Group Number: [facility] authorGEN Plan Information #: 2 Payer: [employer] Member Number: [id number] Policy Number: NA Group Number: NA
--- OUTSIDE RECORDS SUMMARY | 2024-08-04 10:52 | XMS_ITS ---
[facility] Address [address] [place] [address] Care Team Providers Care Olericulturist Name Role Phone Cruz Lay Primary Care Provider Unavailab Austin Woo Unavailable [phone] Allergies Allergen (clinical drug ingredient) Drug/Non Drug Allergy documented on EMR Reaction Allergy Type Onset Date Status Fish derivative (substance) Fish-derived Products swelling Drug Allergy Active Substance with penicillin structure and antibacterial mechanism of action (substance) Penicillins difficulty breathing Drug Allergy Active REASON FOR VISIT At Risk Footcare, Toe Irritation Medications Medication SIG (Take, Route, Frequency, Duration) Notes Start Date End Date Status Levothyroxine Sodium 25 MCG 1 tablet in the morning on an empty stomach Orally Once a day Not-Taking Extra Depth Orthopedic Shoes (1 Pair) with Customized Heat Molded Multidensity Innersoles (3 Pair) as directed Dx: NIDDM/Polyneuropathy (E11.42), Hammertoe Foot Deformity (M20.41,M20.42), Preulcerative Skin Lesion(s) (L85.1 05/16/2023 Active Etanercept Not-Takin g hydrOXYzine HCl 25 MG 1 tablet as needed Orally Once a day Not-Taking buPROPion HCl 100 MG 1 tablet Orally Twi ce a day Not-Taking Losartan Potassium 50 MG 1 tablet Orally Once a day Active Omeprazole 40 MG 1 capsule 30 minutes before morning meal Orally Once a day Active Trulicity 0.75 MG/0.5ML as directed Subcutaneous Active Multivitamin Adults 50+ Active Vitamin D3 25 MCG (1000 UT) 1 capsule Orally Once a day Not-Taking metFORMIN HCl 500 MG 1 tablet with a krystal l Orally Once a day Active Ibuprofen 600 MG 1 tablet with food o r milk as needed Orally Three times a day Active Methotrexate Sodium 2.5 MG as directed Orally Active Atorvastatin Calcium 40 MG 1 tablet Orally Once a day Active Folic Acid 1 MG 1 tablet Orally Once a day Active Enbrel Active Social History Tobacco Use: Social History Observation [...] Problem Status W/U Status Risk Notes Problem Polyneuropathy due to type 2 diabetes mellitus (056979911) Type 2 diabetes mellitus with diabetic polyneuropathy (E11.42) Active confirmed Problem Acquired hammer toe of right foot (8492918538362023 ) Other hammer toe(s) (acquired), right foot (M20.41) Active confirmed Problem Acquired hammer toe of left foot (5127048833611990 ) Other hammer toe(s) (acquired), left foot (M20.42) Active confirmed Vital Signs Height 5ft 9in in 05/16/2023 Weight 305 lbs 05/16/2023 BMI 45.04 kg/m2 05/16/2023 Encounters Encounter Location Date Provider Diagnosis [facility] [address] [address] 05/16/2023 Austin Munguia Type 2 diabetes mellitus with diabetic polyneuropathy E11.42 ; Other hammer toe(s) (acquired), right foot M20.41 and Other hammer toe(s) (acquired), left foot M20.42 Assessments Encounter Date Diagnosis (ICD Code) Assessment Notes Treatment Notes Treatment Clinical Notes Section Notes 05/16/2023 Type 2 diabetes mellitus with diabetic polyneuropathy (ICD-10 - E11.42) 05/16/2023 Other hammer toe(s) (acquired), right foot (ICD-10 - M20.41) Patient Educated with: DIABETIC FOOT CARE INSTRUCTIONS. pdf (DIABETIC FOOT CARE INSTRUCTIONS. pdf) 05/16/2023 Other hammer toe(s) (acquired), left foot (ICD-10 - M20.42) Plan Of Treatment Medication Medication Name Sig Start Date Stop Date Notes Extra Depth Orthopedic Shoes (1 Pair) with Customized Heat Molded Multidensity Innersoles (3 Pair) as directed Dx: NIDDM/Polyneuropathy (E11.42), Hammertoe Foot Deformity (M20.41,M20.42), Preulcerative Skin Lesion(s) (L85.1 05/16/2023 Treatment Notes Assessment Notes Other hammer toe(s) (acquired), right fo ot Patient Educated with: DIABETIC FOOT CARE INSTRUCTIONS.pdf (DIABETIC FOOT CARE INSTRUCTIONS.pdf) Next Appt Details Follow Up: 1 Year, Reason: Provider Name:Austin Munguia , 05/13/2025 08:30:00 AM, [address] [facility], [address], [address], Progress Notes * Chucky TAMEZDOB:1965 (57 yo M)Acc No.[id number]:05/16/2023 Progress Notes Patient:?Chucky Tamez Provider:?Austin Munguia DPM :1965???Age:57 Y???Sex:Male Adilson e:05/16/2023 Address:[address] [place], [place] [id number] Pcp:Cruz Lay Subjective: * Chief Complaints: * ???At Risk FootcareToe Irrit ation * HPI: ???At Risk footcare:?Pt States Last PCP Visit:?Date?03/13/2023 ???Toe pain:?Location:?B/L feet.?Duration:?several years.?Course:?worse.?Aggrevated by:?shoes, any pressure.?Treatments:?change in shoes.? * ROS:?General/Constitutional:?Nausea?denies.?Vomiting?denies.?Hunger Thirst?denies.?Loss appetite?denies.?Chills?denies.?Fatigue?denies.?Fever?denies.?Night Sweats?denies.?Unexplained weight loss?denies.?Unexplained weight gain?denies.?HEENTM:?Dentures?denies.?Dizziness?denies.?Glasses/contacts?admits.?Retinopathy?de nies.?Blurred/double vision?denies.?TMJ?denies.?Discharge/drainage?denies.?Implants?denies.?Sore throat?denies.?Dental implants?denies.?Hard of hearing ?admits.?Difficulty chewing/swallowing/speaking?denies.?Nose bleeds?denies.?Sore mouth?denies.?Respiratory:?On Oxygen?denies.?Pneumonia/pleurisy?denies.?Bronchitis?denies.?Emphysema?denies.?C oughing?denies.?Cough blood?denies.?Shortness of breath?denies.?Wheezing?denies.?Cardiovascular:?Pacemaker?denies.?MVP?denies.?WPW?denies.?CHF?denies.?Heart attack?denies.?Septal defect?denies.?Rapid beat?denies.?Chest pain ?denies.?Atrial Fib.?denies.?Murmur/Palpitations?denies.?Gastrointestinal:?Hemorrhoids?denies.?Stomach/Abdominal pain?denies.?Dark blood stool?denies.?Irritable bowel ?denies.?Constipation?denies.?Diarrhea?denies.?Hematology:?Swelling?denies.?Clots?denies.?Varicose Veins?denies.?Bruising?denies.?Bleeding problem?denies.?Genitourinary:?Blood urine?denies.?Frequent/Painfu/urination/bladder control?denies.?Kidney stones?denies.?Infection (UTI)?denies.?Nephropathy?denies.?sex trans dis (STD)?denies.?Prostate?denies.?Musculoskeletal:?Hammertoes?admits.?Bunions?denies.?Back Pain?denies.?Muscle Cramps/ Resting?admits.?Muscle cramps / walking?admits.?Generalized aches and pains?admits.?Weakness?admits.?Integ.:?Sosa?denies.?Scars?denies.?Corns/calluses?admits.?Ingrown nails?denies.?Painful nails?denies.?Open Sores?denies.?Rashes?admits.?Neurologic:?Difficulty sleeping?denies.?Brain disorder?denies.?Numbness?admits.?Balance trouble?admits.?Confusion?denies.?Fainting/blackouts?denies.?Tingling?admits.?Tr emors?denies.? * Medical History:? * Surgical History:?gastrectom y sleeve right shoulder replacement arthroscopic knee surgery colonoscopy * Hospitalization/Major Diagno stic Procedure:?No Hospitalization History. * Family History:?Father: kidn ey/liver disease, foot problems, poor circulation, diagnosed with Family history of arthritis, Diabetic - NIDDM, Unspecified essential hypertension.?Mother: diagnosed with Unspecified heart disease, Unspecified cerebral [...] single. ?Occupation: Disabled, works a little. * Medications:?TakingEnbrel At orvastatin Calcium 40 MG Tablet 1 tablet Orally Once a dayFolic Acid 1 MG Tablet 1 tablet Orally Once a dayIbuprofen 600 MG Tablet 1 tablet with food or milk as needed Orally Three times a dayMethotrexate Sodium 2.5 MG Tablet as directed Orally metFORMIN HCl 500 MG Tablet 1 tablet with a meal Orally Once a dayMultivitamin Adults 50+ Omeprazole 40 MG Capsule Delayed Release 1 capsule 30 minutes before morning meal Orally Once a dayTrulicity 0.75 MG/0.5ML Solution Pen-injector as directed Subcutaneous Losartan Potassium 50 MG Tablet 1 tablet Orally Once a dayTaking Enbrel Taking Atorvastatin Calcium 40 MG Tablet 1 tablet Orally Once a dayTaking Folic Acid 1 MG Tablet 1 tablet Orally Once a dayTaking Ibuprofen 600 MG Tablet 1 tablet with food or milk as needed Orally Three times a dayTaking Methotrexate Sodium 2.5 MG Tablet as directed Orally Taking metFORMIN HCl 500 MG Tablet 1 tablet with a meal Orally Once a dayTaking Multivitamin Adults 50+ Taking Omeprazole 40 MG Capsule Delayed Release 1 capsule 30 minutes before morning meal Orally Once a dayTaking Trulicity 0.75 MG/0.5ML Solution Pen-injector as directed Subcutaneous Taking Losartan Potassium 50 MG Tablet 1 tablet Orally Once a dayNot-Taking/PRNVitamin D3 25 MCG (1000 UT) Capsule 1 capsule Orally Once a daybuPROPion HCl 100 MG Tablet 1 tablet Orally Twice a dayEtanercept hydrOXYzine HCl 25 MG Tablet 1 tablet as needed Orally Once a dayLevothyroxine Sodium 25 MCG Tablet 1 tablet in the morning on an empty stomach Orally Once a dayMedication List reviewed and reconciled with the patientNot-Taking/PRN Vitamin D3 25 MCG (1000 UT) Capsule 1 capsule Orally Once a dayNot-Taking/PRN buPROPion HCl 100 MG Tablet 1 tablet Orally Twice a dayNot-Taking/PRN Etanercept Not-Taking/PRN hydrOXYzine HCl 25 MG Tablet 1 tablet as needed Orally Once a dayNot-Taking/PRN Levothyroxine Sodium 25 MCG Tablet 1 tablet in the morning on an empty stomach Orally Once a dayMedication List reviewed and reconciled with the patient * Allergies:?Penicillins: diff iculty breathingFish-derived Products: swellingyes[Allergies Verified] Objective: * Vitals:?Ht:5ft 9in, Wt:305, BMI:45.04, Shoe size:12, Ht-cm: 172.72 cm, Wt-k.25 kg. * ???Past Orders: ???Lab:HEMOGLOBIN A1C (GLYCO HEMOGLOBIN) (Order Date - 05/16/2023) (Collection Date - 05/16/2023) ? Value Reference Range ?HEMOGLOBIN A1C % (HH) 6.4 * Examination: ???Ophthalmology Referral: ?DIABETES EYE EXAM?Diabetic Retinopathy Screening:?Yes ?Findings of Diabetic Eye Exam:?no retinopathy?Neurological: ?SENSORY:?Pt relates , paresthesia , tingling , at rest , especially in the evening , B/L , Neurological exam reveals intact sensorium, pain sensation normal, vibration sensation intact, pinprick sensation is normal in the lower extremities.?Dermatologic: ?SKIN FINDINGS:?Skin exam reveals Keratotic lesion(s) located at , SUB MTH (s) , 1 , B/L , SUB MTH (s) , 2 , B/L , SUB MTH (s) , 3 , B/L , SUB MTH (s) , 4 , B/L , Heel(s) , B/L.?Vascular: ?DP PULSES:?2/4, B/L.?PT PULSES:?2/4, B/L.?CAPILLARY FILL TIME:?immediate, all digits, B/L.?SKIN TEMPERTURE GRADIENT OF THE LOWER EXTERMITIES:?normal, warm to cool, proximal to distal, B/L, B/L.?HAIR GROWTH/TEXTURE/ELASTICITY/TURGOR:?normal, B/L.?PIGMENTATION:?normal, B/L.?EDEMA:?absent, B/L.?Orthopedic: ?MUSCLE STRENGTH:?5/5 all groups in a symmetrical fashion, B/L.?FOOT MORPHOLOGY:?(-) Charcot collapse/destruction noted at [facility].?DIGITAL DEFORMITIES:?Digital contracture, PIPJ, 2-5 B/L, incompl-reducible to non-reducible (2nd toes, B/L), with WB or to push-up test, push-up test, no over, nor underlapping, with evidence of shoe producing skin irritation.?FOOTWEAR:?worn, non-supportive, shoe gear properties exacerbate patient's foot/toe deformity , shoe gear properties exacerbate patients foot/toe deformity.?General Examination: ?GENERAL APPEARANCE:?Reveals a pleasant, alert, well nourished, well- developed, well hydrated individual, who demonstrates proper attention to hygiene/body habitus, and is in no acute distress, Pt serves as own historian for office visit today.?ORIENTED:?person, place, and time.?FOOT EXAM:?Lower Extremity Neurological Exam performed:?Yes ?Footwear Evaluation?Footwear Evaluation performed:?Yes??? Assessment: * Assessment: 1.?Other hammer toe(s) (acqu ired), right foot - M20.41, Chronic problem, Worse (4),Rx Management (4)?2.?Type 2 diabetes mellitus with diabetic polyneuropathy - E11.42 (Primary)?3. Other hammer toe(s) (acquired), left foot - M20.42, Chronic problem, Worse (4),Rx Management (4)? Plan: * Treatment: * Procedure Codes:? * Preventive Medicine:? ??Counseling:?Discussion:?-04: Office or other outpatient visit for the evaluation and management of a new patient, which required a medically appropriate history [...] pair of custom heat-molded inserts was dispensed.? * Follow Up:?1 Year * Images: * Sign off status: Completed true * Provider:?Austin Munguia DPM Date:?2022 Generated for Amanda wyman/Frank/Magi on:?08/04/2024 10:52 AM EDT History and Physical Notes * HPI (History of Present Illness) Category Sub-Category Detail Notes Category Not es Toe pain Location: B/L feet Duration: several years Course: worse Aggravated by: shoes, any pressure Treatments: change in shoes At Risk footcare Pt States Last PCP Visit: Date: 3 Examination Category Sub-Category Detail Notes Category Not [...] MTH (s) , 4 , B/L , Heel(s) , B/L Orthopedic FOOT MORPHOLOGY: (-) Charcot col lapse/destruction noted at [facility] FOOTWEAR: worn, non-supportive , [...] Lower Extremity Neurological Exa m performed:: Yes ORIENTED: person, place, and t idamante Footwear Evaluation Footwear Evaluation performe d:: Yes Ophthalmology Referral DIABETES EYE EXAM Diabetic Retinopa thy Screening:: Yes Findings of Diabetic Eye Exam:: no retin opathy Vascular DP PULSES (B): 2/4, B/L PT PULSES (B): 2/4, B/L CAPILLARY FILL TIME: immediate, all digi ts, B/L TEMPERTURE GRADIENT (C): normal, warm to cool, proximal to distal, B/L, B/L TROPHIC CONDITION-TEXTURE/ELASTICITY/TURGOR/HAIR GROWTH (B): normal, B/L EDEMA (C): absent, B/L PIGMENTATION: normal, B/L
--- OUTSIDE RECORDS SUMMARY | 2024-08-04 10:52 | XMS_ITS | Continuity of Care Document ---
Author Organization [place] - [facility], SATURNINO Raza PT Address [address] [place] [address] Care Team Providers Care Nuclear Chemistry Technician Name Role Phone JOHN SALMERON Primary Care Provider [phone] Assessment Encounter Date Assessment Date Assessment LastModified by Organization Details LastModified Time 07/30/2024 07/30/2024 Assessment: Patient presents with symptoms that are consistent with knee OA. Demonstrates good understanding of home program, post-operative mechanics for gait and stairs, and expectations following surgery. Plan: Discharge patient to knee OA safe [facility]. Follow up with patient post-operatively . [email or web address] Not available 07/29/2024 21:22:09 Plan of Treatment Reminders Order Date Submit Date Provider Last Modified By Organization Details Last Modified Time Details Appointments AYDE Watson&Aggie 2024 09:30A M Cesar Barr NP Not available Not available Not available [place] @ [facility] [place] 2024 08:30A M Endy Parada MD Not available Not available Not available PT INITIAL EVAL 2024 11:00A M Jacob Severino, PT Not available Not available Not available PT FOLLOW-U P 2024 11:00A M Zac Stantonri, YARD HOSTLER Not available Not available Not available POST OP 15 2024 01:15P M Ric Koch PA-C Not available Not available Not available PT FOLLOW-U P 2024 11:00A M Zac Scafuri, YARD HOSTLER Not available Not available Not available PT FOLLOW-U P 2024 11:30A M Zac Scafuri, YARD HOSTLER Not available Not available Not available PT FOLLOW-U P 2024 11:30A M Zac Scafuri, YARD HOSTLER Not available Not available Not available PT FOLLOW-U P 2024 11:00A M Jacob Pyser, PT Not available Not available Not available POST OP 15 2024 01:15P M Antony Valenzuela, PA-C Not available Not available Not available PT FOLLOW-U P 2024 11:00A M Jacob Pyser, PT Not available Not available Not available PT FOLLOW-U P 2024 11:30A M Zac Scafuri, YARD HOSTLER Not available Not available Not available PT FOLLOW-U P 2024 11:30A M Zac Scafuri, YARD HOSTLER Not available Not available Not available PT FOLLOW-U P 2024 11:30A M Zac Scafuri, YARD HOSTLER Not available Not available Not available PT FOLLOW-U P 2024 11:30A M Zac Scafuri, YARD HOSTLER Not available Not available Not available PT FOLLOW-U P 2024 11:00A M Jacob Pyser, PT Not available Not available Not available PT FOLLOW-U P 2024 11:00A M Jacob Pyser, PT Not available Not available Not available PT FOLLOW-U P 2024 11:30A M Zac Scafuri, YARD HOSTLER Not available Not available Not available PT FOLLOW-U P 2024 11:30A M Zac Scafuri, YARD HOSTLER Not available Not available Not available PT FOLLOW-U P 2024 11:30A M Zac Scafuri, YARD HOSTLER Not available Not available Not available PT FOLLOW-U P 2024 11:30A M Jacob Pyser, PT Not available Not available Not available PT FOLLOW-U P 2024 11:30A M Jacob Pyser, PT Not available Not available Not available PT FOLLOW-U P 2024 11:30A M Zac Scafuri, YARD HOSTLER Not available Not available Not available PT FOLLOW-U P 2024 11:30A M Zac Scafuri, YARD HOSTLER Not available Not available Not available RECHECK 10 2024 02:20P M Endy Parada MD Not available Not available Not available Lab None recorded . Referral None recorded . Procedures None recorded . Surgeries None recorded . Imaging None recorded . Medication Orders None recorded . Patient TargetsNo targets recorded. Patient InstructionsNo instructions recorded. Reason for Referral None Reported. Problems Name Problem SNOMED Code Status Onset Date Resolution Date Notes Provider Name and Address Organization Details Recorded Time No complaints 243079174 Active Status : 'I'; Not Available [facility] 4 09:27:01 Body mass index 40+ - severely obese 666942419 Active 2024 Endy Parada MD [address], [place], [address] , [facility] 5 08:36:41 Pain of joint of knee 6539266778 Active 2022 Status : 'A'; Not Available [facility] 4 11:59:24 Stiffness of left knee 3179721845114 02 Active 2023 Endy Parada MD [address], [place], [address] , [facility] 4 09:53:52 Osteoarthr itis of right knee joint 7661923272962 00 Active 2023 Endy Parada MD [address], [place], [address] , [facility] 5 15:20:37 Problem Notes None recorded. Procedures Surgical History Date Name Laterality Status Provider Name and Address Organization Details Recorded Time 5 55969 Therapeutic Exercise (1:1) completed Jacob Severino, PT [address], [place], [address], [facility] 07/29/2024 21:20:23 5 40404: Low complexity PT Eval completed Jacob Severino, PT [address], [place], [address], [facility] 07/29/2024 21:20:26 4 Sports Knee 4&1 completed Sunny Burnette PA-C [address], [place], [address], [facility] 02/10/2024 07:45:43 4 Sports Knee 4&1 completed Sunny Burnette PA-C [address], [place], [address], [facility] 10/28/2023 12:11:26 4 23469 Therapeutic Exercise (1:1) completed Igor Melendez PTA [address], [place], [address], [facility] 09/26/2023 08:30:50 4 75019 Therapeutic Exercise (1:1) completed Igor Melendez PTA [address], [place], [address], [facility] 09/12/2023 10:16:16 4 Knee Kenalog 40mg 2cc Injection, L/R completed Endy Parada MD [address], [place], [address], [facility] 09/11/2023 15:48:43 4 65886 Therapeutic Exercise (1:1) completed Igor Melendez PTA [address], [place], [address], [facility] 09/09/2023 10:37:00 4 31994 Therapeutic Exercise (1:1) completed Igor Melendez PTA [address], [place], [address], [facility] 09/04/2023 11:35:16 4 37876 Therapeutic Exercise (1:1) completed Igor Melendez PTA [address], [place], [address], [facility] 09/02/2023 10:25:21 4 32154 Therapeutic Exercise (1:1) completed Igor Melendez PTA [address], [place], [address], [facility] 08/30/2023 10:06:07 4 83148 Therapeutic Exercise (1:1) completed Igor Melendez, YARD HOSTLER [address], [place], [address], [facility] 08/28/2023 11:36:38 4 06881: Manual therapy completed Igor Melendez, YARD HOSTLER [address], [place], [address], [facility] 08/28/2023 11:36:38 4 01949 Therapeutic Exercise (1:1) completed Igor Melendez, YARD HOSTLER [address], [place], [address], [facility] 08/22/2023 08:38:03 4 29205: Manual therapy completed Igor Melendez, YARD HOSTLER [address], [place], [address], [facility] 08/22/2023 08:38:03 4 29477 Therapeutic Exercise (1:1) completed Igor Melendez, YARD HOSTLER [address], [place], [address], [facility] 08/15/2023 08:45:40 4 60441: Manual therapy completed Igor Melendez, YARD HOSTLER [address], [place], [address], [facility] 08/15/2023 08:45:40 4 42227 Therapeutic Exercise (1:1) completed Jacob Severino, PT [address], [place], [address], [facility] 08/13/2023 09:53:42 4 01414: Manual therapy completed Jacob Severino, PT [address], [place], [address], [facility] 08/12/2023 20:53:45 4 21719 Therapeutic Exercise (1:1) completed Jacob Severino, PT [address], [place], [address], [facility] 08/08/2023 09:52:25 4 68857: Hot or Cold Pack completed Jacob Pyser, PT [address], [place], [address], [facility] 08/08/2023 09:53:17 4 06617: Manual therapy completed Jacob Pyser, PT [address], [place], [address], [facility] 08/07/2023 06:57:01 4 19183 Therapeutic Exercise (1:1) completed Jacob Pyser, PT [address], [place], [address], [facility] 08/06/2023 10:24:18 4 89997: Hot or Cold Pack completed Jacob Pyser, PT [address], [place], [address], [facility] 08/06/2023 10:24:58 4 63466: Manual therapy completed Jacob Pyser, PT [address], [place], [address], [facility] 08/06/2023 10:24:27 Imaging Results None recorded. Procedure Notes None recorded. Medical Equipment None Reported. Allergies Allergen ID Allergen Name Allergen Category Reaction Reaction Severity Criticality Documentation Date Start Date Code Code System Note Provider Name and Address Organization Details Recorded Time 845860 Fish (substanc e) food,medi cation Not available Not available Not available 08/13/2023 38253 1005 SNOMED Sunny Burnette PA-C [address], [place], [address], [facility] 4 10:47:16 29426 Product containin g penicilli n (product) medicatio n Not available Not available Not available 07/29/20232006 66689 8001 SNOMED Aller gyRea ction : 'Skin React ion, RASH' ; Not Available [facility] 4 12:44:37 Medications Name Sig Start Date [...] MEDICATIO N TO BE STARTED AFTER SURGERY 01/08 /2025 completed Not Available Not Available Not Available [...] Not Available Not Available Not Available Vitals None Recorded Social History None recorded. Functional Status None recorded. Mental Status None recorded. Family History Nothing Reported. Medical History Condition Response Allergies/Hayfever N Coronary Artery Disease N Anxiety/Depression Y Emphysema N Thyroid Problems N COPD N Pacemaker N Anemia N Kidney/Bladder Problems N Vascular Disease N Gastrointestinal Disease N Heart Attack (RI) N Diabetes N Autoimmune disease N Bleeding [...] SNOMED-CT Code Diagnosis ICD10 Code Diagnosis Note [id number] Jacob Severino, PT [facility] [address] [place] [address] 07/30/2024 11:24:10 07/30/2024 12:44:30 Osteoarthritis of knee [id number] M17.11 Health Concerns Section Related Observation LastModified by Organization Detai ls LastModified Time None Recorded Concern Status LastModified by Organization Details LastModified Time None Recorded Payers Encounter Date Sequence Insurance Name Policy Number Policy Richardson Covered Member ID Richardson Member ID Guarantor Name 07/30/2024 1 [facility] - DOS ON OR AFTER 2022 - ONE CARE (MEDICARE REPLACEMENT/ADV ANTAGE - HMO) Chucky Abarca [id number] Chucky Abarca Jr Notes Date Note Type Note Provider Name and Address Organization Details Recorded Time 07/30/2024 text/html Patient is 58 ye ar [...] w knee pad Jacob Severino, PT [address] [facility] [address], [place], [address], [facility] 07/30/2024 12:10:38
[2024-08-04 11:08] LABS: Estimated Average Glucose 137 mg/dL; Hemoglobin A1c % 6.4 % (<6.0)
[2024-08-04 11:36] LABS: Erythrocyte Sedimentation Rate 16 MM/HR (0-15)
[2024-08-04 11:58] LABS: Creatinine Urine 204.16 mg/dL; Microalbum/Creatinine Ratio Ur 20.5 ug/mg cr (<30)
[2024-08-04 12:10] LABS: ~HepC Num1 0.09 S/CO (0.00-0.79); ~Hepatitis C Antibody Nonreactive (Nonreactive)
[2024-08-04 12:14] LABS: Alanine Aminotransferase 21 U/L (0-40); Albumin Level 3.9 g/dL (3.5-5.0); Alkaline Phosphatase 98 U/L (39-117); Anion Gap 14 (12-20); Aspartate Amino Transferase 31 U/L (5-37); Bilirubin Total 0.4 mg/dL (0.0-1.0); Blood Urea Nitrogen 19 mg/dL (9-16); C Reactive Protein 0.32 mg/dL (< or = 0.50); Calcium 8.9 mg/dL (8.4-10.2); Carbon Dioxide 19 mmol/L (22-29); Chloride 110 mmol/L (96-108); Cholesterol 148 mg/dL (<200); Estimated Glomerular Filt Rate > 60; Glucose Fasting 110 mg/dL (60-99); Glucose Random 109 mg/dL (60-115); HDL Cholesterol 48 mg/dL (>40); Iron 73 mcg/dL (45-160); LDL Cholesterol Calculated 75 mg/dL (<100); Percent Iron Saturation 28 % (15-50); Potassium 4.4 mmol/L (3.3-5.1); Sodium 139 mmol/L (135-145); TSH reflex Free T4 1.92 uIU/mL (0.32-4.0); Total Iron Binding Capacity 258 mcg/dL (228-428); Total Protein 7.9 g/dL (6.5-8.0); Triglycerides 129 mg/dL (<150); Unsaturated Iron Binding 185 ug/dL
[2024-08-04 12:22] LABS: Alanine Aminotransferase 19 U/L (0-40); Albumin Level 4.1 g/dL (3.5-5.0); Alkaline Phosphatase 102 U/L (39-117); Anion Gap 13 (12-20); Aspartate Amino Transferase 20 U/L (5-37); Bilirubin Total 0.4 mg/dL (0.0-1.0); Blood Urea Nitrogen 18 mg/dL (9-16); C Reactive Protein 0.34 mg/dL (< or = 0.50); Calcium 8.8 mg/dL (8.4-10.2); Carbon Dioxide 24 mmol/L (22-29); Chloride 108 mmol/L (96-108); Estimated Glomerular Filt Rate > 60; Ferritin 30 ng/mL (20-250); Glucose Random 111 mg/dL (60-115); Sodium 141 mmol/L (135-145); Total Protein 7.8 g/dL (6.5-8.0); Vitamin D 25-OH Total 34.7 ng/mL (>30)
[2024-08-04 12:29] LABS: Vitamin B12 345 pg/mL (200-900)
[2024-08-04 12:50] LABS: Insulin 10 uU/mL (2-29)
[2024-08-06 22:24] LABS: Hepatitis B Surface Ab Qnt <5 mIU/mL (> OR = 10)
[2024-08-07 07:28] LABS: Zinc 77 mcg/dL (60-130)
[2024-08-08 13:34] LABS: Vitamin A 62 mcg/dL (38-98)
[2024-08-11 01:42] LABS: Vitamin B1 13 nmol/L (8-30)
== END 2024-08-04 09:31 | disposition home or self-care (01) ==
LOC: HO.LAB 09:30
PROVIDERS: Physician Assistant Surgical; Student in an Organized Health Care Education/Training Program; Absent Provider Physician Assistant; PCP Physician Assistant; Visit Provider Internal Medicine Hospice and Palliative Medicine
DX: M17.11 Unilateral primary osteoarthritis, right knee (principal); E11.9 Type 2 diabetes mellitus without complications; E78.5 Hyperlipidemia, unspecified; E03.9 Hypothyroidism, unspecified; I10 Essential (primary) hypertension; Z90.3 Acquired absence of stomach [part of]; Z79.60 Long term (current) use of unspecified immunomodulators and immunosuppressants; L40.50 Arthropathic psoriasis, unspecified
CPT/HCPCS: 36415; 80053; 80061; 82043; 82306; 82570; 82607; 82728; 82746; 83036; 83525; 83540; 84425; 84443; 84590; 84630; 85025; 85652; 86140; 86317; 86803

== ENCOUNTER 2024-09-30 14:03 | Outpatient (AMB) | payer OTHER, SELFPAY ==
[2024-09-30 14:06] VITALS: BP 132/74; PULSE 95; O2SAT 98; BMI 47.3
--- NOTE | 2024-09-30 14:06 | A.OFFPC_ITS ---
Vital Signs 3 09/30/24 14:06 Height 5 ft 8 in Weight 311 lb 2 oz BMI 47.3 BP 132/74 Blood Pressure Location Lt brachial Position Sitting Pulse 95 Pulse Source Pulse Oximeter Pulse Oximetry (%) 98 Oxygen Delivery Method Room Air Intake Visit Reasons: f/u DMII Allergies Penicillins [PENICILLINS] Allergy (Severe, Verified 09/30/24 14:12) DIFFICULTY BREATHING Fish Containing Products Allergy (Intermediate, Verified 09/30/24 14:12) swollen Medication List - Last Reconciled 09/30/24 by Cruz Lay PA-C acetaminophen ER (Tylenol Arthritis Pain) 650 mg PO Q12H 90 days atorvastatin 20 mg PO DAILY 90 days blood pressure test kit-large As directed blood sugar diagnostic (FreeStyle Lite Strips) As directed blood-glucose meter (FreeStyle Lite Meter kit) As directed bupropion HCl SR 100 mg PO QAM cholecalciferol (vitamin D3) 25 mcg PO DAILY 90 days [diabetic shoes As directed] Enbrel SureClick (etanercept) 50 mg subcut QWEEK NS folic acid 1 mg PO DAILY heating pads As directed ibuprofen 600 mg PO Q8H PRN lancets (FreeStyle Lancets) As directed levothyroxine 25 mcg PO DAILY losartan 50 mg PO DAILY metformin 1,000 mg (2 x 500 mg) PO BID 90 days methotrexate sodium 15 mg (6 x 2.5 mg) PO QWEEK miscellaneous medical supply 1 ea miscellaneous DAILY 99 days adxmkaewdlll-ajhoqley-kusvef (Multivitamin 50 Plus tablet) 1 tab PO DAILY omeprazole 40 mg PO DAILY semaglutide (Ozempic) 1 mg (0.75 mL) subcut QWEEK 90 days tramadol 50 mg PO Q6H PRN 7 days Tobacco use date assessed: 07/22/23 Dental Screening Dental Screen Date: 07/22/23 HPI f/u DMII 2 HPI0 Details Chucky is a 58 year male here today for a follow-up visit. ? Patient has past medical history significant for hypertension, depression, type 2 diabetes, YARIEL, anxiety, history of cocaine abuse, psoriatic arthritis. Recently underwent a knee replacement at [facility] and doing well. Obesity: Does understand his BMI is over 40. Has lost a little bit of weight since last office visit, he does report being physically active and has been watching his diet. He is discouraged by the lack of progress he is making on his weight loss journey. He is interested in increasing his Ozempic to 1 mg weekly ? .. ?? ? Depression/ anxiety:? Patient is followed by psychiatrist( [facility]) who prescribes his mental health medications.? He reports.? he recently went through severe depression roug has discontinued h t and the use of prazosin and Risperdal . .? He continues to work with his mental health therapist and a psychiatrist on his depression. ? .. ? Diabetes: Has been compliant with metformin a 1000 mg b.i.d. and Ozempic. ? ? ? Most recent A1c and fasting blood sugar acceptable..? Has been able to lose weight since last office visit. UNFORTUNATELY HAS NOT LOST MUCH WEIGHT LIKELY DUE TO NOT BEING PHYSICALLY ACTIVE USUAL SECONDARY TO HIS KNEE ARTHROPLASTY. PLAN: Will transition to alternative GLP 1 (tirzepatide) and up titrate per protocol. ? .. ? HTN:? Doesnt check his BP at home, blood pressure today in office acceptable.? Patient denies any chest discomfort, headaches or shortness of breath. Psoriatic arthritis:? He continues to follow Rheumatology. 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 Continues on injections of Embrel and weekly methotrexate.? .. Hypothyroidism:? Most recent TSH acceptable.? He has not been taking levothyroxine. Will continue to hold levothyroxine and check TSH to assure stable.. [facility] Medical History Long-term use of immunosuppressant medication Screening examination for infectious disease Psoriatic arthritis COVID-19 Skin lesion Type 2 diabetes mellitus Vitamin D deficiency Psoriasis Hypercholesterolemia Bipolar disorder Depression Rheumatoid arthritis LENNOX (generalized anxiety disorder) HTN (hypertension) DMII (diabetes mellitus, type 2) Surgical History H/O knee surgery History of sleeve gastrectomy History of right shoulder replacement H/O arthroscopy of knee History of colonoscopy Family History Father Diabetes Dialysis patient Mother Hypertension Heart problem Social History Housing: House Alcohol intake: never Patient Tobacco Use Status: Never used Tobacco e-Cigarette/Vaping Use: Never Used Second Hand Smoke Exposure: No service: No Current occupational status: unemployed Cognitive needs: No Hearing needs: No Vision needs: Yes Questionnaire PHQ-9 Over the last 2 weeks, how often have you been bothered by any of the following problems? 1. Little interest or pleasure in doing things: not at all 2. Feeling down, depressed, or hopeless: not at all 3. Trouble falling or staying asleep, or sleeping too much: not at all 4. Feeling tired or having little energy: not at all 5. Poor appetite or overeating: not at all 6. Feeling bad about yourself - or that you are a failure or have let yourself or your family down: not at all 7. Trouble concentrating on things, such as reading the newspaper or watching television: not at all 8. Moving or speaking so slowly that other people could have noticed. Or the opposite - being so fidgety or restless that you have been moving around a lot more than usual: not at all 9. Thoughts that you would be better off or of hurting yourself in some way: not at all Total score: 0 Depression Screening Interpretation: Negative Depression Screening Done: Yes 53359 - PHQ-9 Billing: Yes Source: Developed by Drs. Geovany Xie, Andree Anthony, Kodak Handley and colleagues, with an educational jackelyn from [employer]. Thrive Questionnaire Date Thrive assessed: 09/30/24 I am a: Patient What is your living situation today?: I have a steady place to live Within the past 12 months, did the food you bought not last and you didn't have the money to get more?: Never true Within the past 12 months, did you worry whether your food would run out before you got money to buy more?: Never true Do you have trouble paying for medicines?: No Do you have trouble getting transportation to medical appointments?: No Do you have trouble paying your heating and electricity bill?: I choose not to answer this question Do you have trouble taking care of your child, family member or friend?: No Do you have trouble with day-to-day activities such as bathing, preparing meals, shopping, managing finances, etc.?: I choose not to answer this question Are you currently unemployed and looking for a job?: I choose not to answer this question Are you interested in more education?: I choose not to answer this question Please select the resources that you would like help with: None Currently or been in a relationship where the following occur: I choose not to answer THRIVE Score: 0 AUDIT C Alcohol Use Questionnaire (AUDIT-C) 1. How often do you have a drink containing alcohol?: Never 3. How often do you have six or more drinks on one occasion?: Never Total Score: 0 LENNOX-7 AMB Questionnaire LENNOX-7 Date LENNOX - 7 assessed: 09/30/24 Feeling nervous, anxious, or on edge: 0 = Not at all Not being able to stop or control worryin = Not at all Worrying too much about different things: 0 = Not at all Trouble relaxin = Not at all Being so restless that it is hard to sit still: 0 = Not at all Becoming easily annoyed or irritable: 0 = Not at all Feeling afraid as if something awful might happen: 0 = Not at all Total LENNOX-7 score (0-4 normal; 5-9 mild; 10-14 moderate; 15-21 severe): 0 Source: Developed by Drs. Geovany Xie, Andree Anthoyn, Kodak Handley and colleagues, with an educational jackelyn from [employer]. LENNOX-7 Assessment Billing LENNOX-7 Assessment Tool: LENNOX-7 Assessment 56401 Review of Systems Const Denies headache(s) Eyes Denies loss of vision ENT Denies vertigo, Denies dizziness, Denies headache(s) and Denies sore throat Card Denies chest pain, Denies leg edema and Denies lightheadedness Resp Denies cough, Denies hemoptysis and Denies wheezing GI Denies abdominal pain, Denies melena, Denies constipation, Denies diarrhea and Denies vomiting Denies dysuria, Denies urinary frequency and Denies urinary urgency Musc Denies arthralgias, Denies joint swelling, Denies numbness and Denies tingling Neuro Denies Abnormal speech present, Denies behavioral changes, Denies vertigo, Denies dizziness, Denies headache(s), Denies loss of vision, Denies memory loss, Denies numbness and Denies tingling Psych Denies anxiety, Denies behavioral changes, Denies depression, Denies memory loss and Denies panic attacks Lobo/Lymph Denies easy bleeding and Denies easy bruising Aller/Immun Denies wheezing Physical exam (Primary Care) Vital Signs: Last Vital Signs Pulse 95 09/30/24 14:06 BP 132/74 09/30/24 14:06 Pulse Ox 98 09/30/24 14:06 Oxygen Delivery Method Room Air 09/30/24 14:06 BMI result Body Mass Index 47.3 Tobacco/Smoking Status: Tobacco use Status Tobacco use date assessed 07/22/23 09/30/24 14:09 Patient Tobacco Use Status Never used Tobacco 09/30/24 14:09 e-Cigarette/Vaping Use Never Used 09/30/24 14:09 PHQ-9: PHQ-9 Score PHQ-9: Total score 0 09/30/24 14:09 Depression Screening Interpretation: Negative Thrive Assessment: Date of Thrive Assessment Date Thrive assessed 09/30/24 09/30/24 14:09 Currently or been in a relationship where the following occur: I choose not to answer Const General: healthy appearing, no acute distress, alert and awake Nutritional Appearance: well nourished Orientation/consciousness: oriented to person, oriented to place and oriented to time HENMT Ears: TM's normal bilaterally General nose exam: Normal nasal mucous membranes and turbinates present Eyes Conjunctivae: conjunctivae normal Sclerae: sclerae normal Pupils: Equal, round and reactive pupils present Neck Neck: Yes no lymphadenopathy and Yes no JVD Thyroid: Thyroid normal Carotids: no bruits Resp Effort & Inspection: normal respiratory effort and not tachypneic Auscultation: no crackles, no rales, no rhonchi and no wheezes Cardio Rate: regular rate Rhythm: regular rhythm Heart sounds: no murmurs and normal S1 and S2 GI Palpation (GI): Soft to palpation, nontender, no hepatomegaly and no splenomegaly Auscultation: normal bowel sounds Skin General skin exam: no rashes or lesions noted and dry skin Neuro General: oriented to person, oriented to place and oriented to time Cranial nerves: Yes Equal, round and reactive pupils present Speech: No Abnormal speech present Gait exam (Neuro): Normal gait present Motor exam (neuro): no tremor noted Extrem Right upper extremity: full ROM Left upper extremity: full ROM Right lower extremity: full ROM; no edema Left lower extremity: full ROM; no edema Ankle/foot/toe images: 2 1. DECREASED SENSATION TO LIGHT TOUCH TO DISTAL TOES MAMMO CALLUS FORMATIONS OR SKIN BREAKDOWNS NOTED Psych Mental Status: mental status grossly normal Speech and movement: Normal speech and movement present Affect: normal affect Attitude: cooperative Thought process: Normal thought process present Coding Level of Care Code Est Pt Level 4 (73519) Diagnoses Type 2 diabetes mellitus without complication, without long-term current use of insulin E11.9 Diabetes mellitus ad terminal makeup operator insulin use: without ad terminal makeup operator use Diabetes mellitus complication status: without complication Colon cancer screening Z12.11 Mixed hyperlipidemia E78.2 Hyperlipidemia type: mixed hyperlipidemia Class 3 obesity E66.813 Psoriatic arthritis L40.50 Primary hypertension I10 Hypertension type: primary hypertension Additional Codes LENNOX-7 Assessment Billing - LENNOX-7 Assessment Tool: LENNOX-7 Assessment 92245 ([id number]) PHQ-9 - 53707 - PHQ-9 Billing: Yes ([id number]) Assessment & Plan Assessment & Plan (1) DMII (diabetes mellitus, type 2): Code(s): E11.9 - Type 2 diabetes mellitus without complications Category: Medical Qualifiers: Diabetes mellitus ad terminal makeup operator insulin use: without fci use Diabetes mellitus complication status: without complication Qualified Code(s): E11.9 - Type 2 diabetes mellitus without complications Plan: Patient's type 2 diabetes well controlled with current med regime. He would like to transition to a different GLP 1 to help lose weight. Will transitioned to do his appetite from Ozempic. Will uptitrate to his appetite per response. Goal A1c is to be below 7.0 (2) Colon cancer screening: Code(s): Z12.11 - Encounter for screening for malignant neoplasm of colon Category: Medical Plan: Willing to do colonoscopy (3) HLD (hyperlipidemia): Code(s): E78.5 - Hyperlipidemia, unspecified Category: Medical Qualifiers: Hyperlipidemia type: mixed hyperlipidemia Qualified Code(s): E78.2 - Mixed hyperlipidemia Plan: Patient's most recent lipid panel showing excellent control of his total cholesterol and LDL. Will continue his current dose of statin therapy with goal LDL to remain below 100 (4) Class 3 obesity: Code(s): E66.813 - Obesity, class 3 Category: Medical Plan: Patient does understand his BMI is above 40 and will work on trying to be more physically active and adapting to better eating habits to reduce his weight. He would like to try a alternative GLP 1 to see if he can obtain weight loss. (5) Psoriatic arthritis: Code(s): L40.50 - Arthropathic psoriasis, unspecified Category: Medical Plan: Patient followed by Rheumatology. Continues on methotrexate and Enbrel with fairly good response on reducing his overall joint pains. (6) HTN (hypertension): Code(s): I10 - Essential (primary) hypertension Category: Medical Qualifiers: Hypertension type: primary hypertension Qualified Code(s): I10 - Essential (primary) hypertension Plan: Patient's blood pressure acceptable today in office. Will continue his current dose of antihypertensive medications with goal blood pressure to remain below 140/90 Orders: Orders 2 Complete Blood Count no Diff Today E11.9 - Type 2 diabetes mellitus without complications Comprehensive [place]. Panel Fast Today E11.9 - Type 2 diabetes mellitus without complications Microalbumin, Random (w Creat) Today E78.2 - Mixed hyperlipidemia Prostate Specific Antigen Scr Today E78.2 - Mixed hyperlipidemia, Z12.5 - Encounter for screening for malignant neoplasm of prostate Referrals 2 Gastroenterology Referral Z12.11 - Encounter for screening for malignant neoplasm of colon Medications: New 2 tirzepatide for 4 weeks 2.5 mg (0.5 mL) subcut QWEEK 4 weeks 2 mL 0RF E11.9 - Type 2 diabetes mellitus without complications blood pressure test kit-wrist As directed 1 ea 0RF I10 - Essential (primary) hypertension Discontinued 2 levothyroxine Discontinued Reason: Doctor's Order 25 mcg PO DAILY 90 tabs 1RF E03.9 - Hypothyroidism, unspecified On Hold 2 semaglutide (Ozempic) Hold Comment: Doctor's Order 1 mg (0.75 mL) subcut QWEEK 90 days 9.75 mL 2RF E11.9 - Type 2 diabetes mellitus without complications
--- OUTSIDE RECORDS SUMMARY | 2024-09-30 15:19 | XMS_ITS ---
[facility] Address [address] [place] [address] Care Team Providers Care Tower Dragline Operator Name Role Phone Cruz Lay Primary Care Provider Unavailab Austin Woo Unavailable [phone] Allergies Allergen (clinical drug ingredient) Drug/Non Drug [...] Ordered Date Performed Result Body Sit e 85878-RPJUMUV NAIL, 1-5 05/13/2024 N/A 86811-GHWM SKIN LESIONS, OVER 4 05/13/2024 N/A K4342-OOKOFRRX DYSTROPHIC NAILS ANY # 05/13/2024 N/A Encounters Encounter Location Date Provider Diagnosis [facility] [address] [address] 05/13/2024 Austin Munguia Type 2 diabetes mellitus [...] INSTRUCTIONS.pdf) Pending Test Test Name Order Date 52393-EDHYZBL NAIL, 1-5 05/13/2024 38268-KAJP SKIN LESIONS, OVER 4 05/13/20 24 E6256-SZLSNJAC DYSTROPHIC NAILS ANY # Next Appt Details Follow Up: 1 Year, Reason: Provider Name:Austin Munguia , 05/13/2025 08:30:00 AM, [address] [facility], [address], [place], [address], Procedure Notes * Category Sub-Category Detail Notes [...] instrumentation by the physician of record - 89921 Debride Nails 1-5 Procedure: Due to the [...] necessary to maintain effective symptomatic relief - 12560 Nail Reduction Nail Reduction (-27) Trimming o [...] Notes * CECETAMMIE ChuckyDOB:1965 (58 yo M)Acc No.[id number]:05/13/2024 Progress Note Patient:?Chucky TAMEZ Provider:?Austin Munguia DPM :1965???Age:58 Y???Sex:Male Adilson e:05/13/2024 Address:[address] [place] [id number] Pcp:Cruz Lay Subjective: * Chief Complaints: * [...] necessary to maintain effective symptomatic relief - 84313.?Keratoma Treatment:?Parring or Cutting of Benign Hyperkeratotic Lesion(s)?(-57) [...] instrumentation by the physician of record - 80917.?Nail Reduction:?Nail Reduction?(-27) Trimming of all dystrophic nails [...] or bed tissue - G0127.? * Procedure Codes:?59400 TRIM SKIN LESIONS, OVER 4, Modifiers: XS 16481 DEBRIDE NAIL, 1-5, Modifiers: XS G0127 TRIMMING [...] Munguia DPM Date:?2023 Generated for Amanda wyman/Frank/Magi on:?09/30/2024 03:19 PM EDT History and Physical Notes * HPI [...] cture, (-) Charcot collapse/destruction noted at [facility] FOOTWEAR EVALUATION: worn, non-supportiv e, shoe gear properties exacerbate patient's foot/toe deformity [...]
--- OUTSIDE RECORDS SUMMARY | 2024-09-30 15:19 | XMS_ITS ---
[facility] Address [address] [place] [address] Care Team Providers Care Eye Dropper Assembler Name Role Phone Cruz Lay Primary Care Provider Unavailab Austin Woo Unavailable [phone] Allergies Allergen (clinical drug ingredient) Drug/Non Drug [...] Polyneuropathy due to type 2 diabetes mellitus (789210959) Type 2 diabetes mellitus with diabetic polyneuropathy (E11.42) Active confirmed Problem Acquired hammer toe of right foot (0593932120690079 ) Other hammer toe(s) (acquired), right foot (M20.41) Active confirmed Problem Acquired hammer toe of left foot (7072234102464606 ) Other hammer toe(s) (acquired), left foot (M20.42) Active confirmed Vital Signs Height 5ft 9in in 05/16/2023 Weight 305 lbs 05/16/2023 BMI 45.04 kg/m2 05/16/2023 Encounters Encounter Location Date Provider Diagnosis [facility] [address] [address] 05/16/2023 Austin Munguia Type 2 diabetes mellitus [...] Name:Austin Munguia , 05/13/2025 08:30:00 AM, [address] [facility], [address], [address], Progress Notes * Chucky TAMEZDOB:1965 (57 yo M)Acc No.[id number]:05/16/2023 Progress Notes Patient:?Chucky Tamez Provider:?Austin Munguia DPM :1965???Age:57 Y???Sex:Male Adilson e:05/16/2023 Address:[address] [place], [place] [address] Pcp:Cruz Lay Subjective: * Chief Complaints: * [...] Munguia DPM Date:?2022 Generated for Amanda wyman/Frank/Magi on:?09/30/2024 03:18 PM EDT History and Physical Notes * [...] (-) Charcot col lapse/destruction noted at [facility] FOOTWEAR EVALUATION: worn, non-supportiv [...] performed:: Yes ORIENTED: person, place, and t diamante Footwear [...]
--- OUTSIDE RECORDS SUMMARY | 2024-09-30 15:19 | XMS_ITS | Clinical Summary ---
Author Organization [address] [facility] Address [address] [place] [address] Phone Care Team Providers Care Inspection Clerk Name Role Phone Mario Palmer DO Primary Care Provider [phone] Allergies No known active allergies Active Problems [...] Zoster Vaccines (2 of 2) 03/29/2021 02/01/2021 Cholesterol Screening (Lipid Panel) 04/20/2024 Colorectal Cancer Screening: Colonoscopy 04/20/2024 Depression Screening 04/20/2024 HIV Screening 04/20/2024 Hepatitis C Screening 04/20/2024 Social Influencers of Health Screening 04/20/2024 Diabetes: Annual Urine Albumin-Creatinine Ratio (uACR) 07/01/2024 Diabetes: Blood Sugar Contro l Test (HGBA1C) 07/01/2024 Hypertension/CHF/CAD Annual BMP Blood Test 07/01/2024 Influenza Vaccine (Season Ended) 2025 02/16/20 22 RSV Immunization Adult Patie nts (1 - 1-dose 75+ series) 11/01/2039 Pneumococcal [...] age to complete this topic Meningococcal B Vaccine Aged Out No l onger eligible based on patient's age to complete this topic RSV Immunization Patients Un cee 20 months Aged Out No longer eligible b ased on patient's age to complete this topic Varicella Vaccines Aged Out No longer eligible based on patient's age to complete this topic Insurance MEDICAID - [place] Care Teams Inspection Clerk Relationship Specialty Start Date End Date Mario Palmer DO [address] [address] PCP - General Family Medicine 04/27/24
--- OUTSIDE RECORDS SUMMARY | 2024-09-30 15:19 | XMS_ITS | Patient Health Record ---
Author Organization [facility] Address [address] [facility] [place] [address] Care Team Providers Care Grab Hooker Name Role Phone Cruz Lay Primary Care Provider Unavailab Austin Woo Unavailable [phone] Allergies Allergen (clinical drug ingredient) Drug/Non Drug [...] Problem Acquired hammer toe of right foot (1451606852193202 ) Other hammer toe(s) (acquired), right foot (M20.41) Active confirmed Problem Acquired hammer toe of left foot (2031625729595876 ) Other hammer toe(s) (acquired), left foot (M20.42) Active confirmed Problem Polyneuropathy due to type 2 diabetes mellitus (154427066) Type 2 diabetes mellitus with diabetic polyneuropathy (E11.42) Active confirmed Vital Signs Blood pressure diastolic 82 mm Hg 05/13/2024 Height 5ft 9in in 05/13/2024 Blood pressure systolic 129 mm Hg 05/13/2024 Weight 300 lbs 05/13/2024 BMI 44.3 kg/m2 05/13/2024 Procedures Procedure Date Ordered Date Performed Result Body Sit e 68748-NCXWKHA NAIL, 1-5 05/13/2024 N/A 18191-RTSM SKIN LESIONS, OVER 4 05/13/2024 N/A Y6131-NMSIVJJP DYSTROPHIC NAILS ANY # 05/13/2024 N/A Encounters Encounter Location Date Provider Diagnosis [facility] [address] [address] 05/13/2024 Austin Munguia Type 2 diabetes mellitus [...] Treatment Pending Test Test Name Order Date 81621-XBNCYHV NAIL, 1-5 05/13/2024 42011-SEWO SKIN LESIONS, OVER 4 05/13/20 24 F4814-UQCNKYOQ DYSTROPHIC NAILS ANY # Next Appt Details Provider Name:Austin Munguia , 05/13/2025 08:30:00 AM, [address] [facility], [address], [place], [address], Insurance Providers Payer Name Payer Address Payer Phone Subscriber Number Group Number Insured Name Patient Relationship to Insured Coverage Start Date Coverage End Date [facility] [employer] Claims [address] [place] [id number] [phone] [id number] Chucky Abarca Self - patient is the [...]
--- OUTSIDE RECORDS SUMMARY | 2024-09-30 15:19 | XMS_ITS | Clinical Summary ---
Author Organization [facility] Address [address] [place] [address] Care Team Providers Care Comfort Advisor Name Role Phone Sarah Gaspar LIZ Primary Care Provider [phone] Source Comments PLEASE NOTE, if this patient [...] TEST) stripsIndication s:DM2 (diabetes mellitus, type 2) ([facility]) as needed for high blood sugar. 100 Each 3 3 Active lancetsIndicatio ns:DM2 (diabetes mellitus, type 2) ([facility]) TID 100 Each 3 3 Active [...] mg tabletIndication s:DM2 (diabetes mellitus, type 2) ([facility]) Take 1 Tab by mouth 2 [...] mg tabletIndication s:DM2 (diabetes mellitus, type 2) ([facility]) Take 1 Tab by mouth once [...] (gastroesophageal reflux disease) 4 Bipolar 2 disorder ([facility]) 06/23/2013 Diabetes ([facility]) 03/24/2013 Osteoarthritis 03/24/2013 Psoriatic arthritis ([facility]) 03/24/2013 Overview (03/24/2013): Hands, elbow, feet, knees, shoulders HTN (hypertension) 03/24/2013 Depression 03/24/2013 Morbidly obese (HCC-CMS) 03/24/2013 Immunizations Immunization Administration Dates Next Due INFLUENZA, SEASONAL, INJECTABLE [...] Plan of Treatment Not on file Insurance [facility] Member Subscriber Plan / Payer (Ef fective 2013-Present) Name:Chucky Abarca Relation to Subscriber:Self Name:Chucky Abarca Payer ID:[id number] Group ID:[id number] Type:Medicaid Address: [facility] [address] [place] [address] Care Teams Comfort Advisor Relationship Specialty Start Date End Date Sarah Gaspar NP [phone] [place] [address] PCP - General Internal Medicine 03/24/13
== END 2024-09-30 14:39 | disposition home or self-care (01) ==
LOC: HO.HMCH 14:04
PROVIDERS: PCP Physician Assistant; Visit Provider Physician Assistant
DX: E11.9 Type 2 diabetes mellitus without complications (principal); L40.50 Arthropathic psoriasis, unspecified; E66.813 Obesity, class 3; Z68.42 Body mass index [BMI] 45.0-49.9, adult; Z12.11 Encounter for screening for malignant neoplasm of colon; E78.2 Mixed hyperlipidemia; I10 Essential (primary) hypertension

== ENCOUNTER → 2024-09-30 14:03 | Outpatient (BNVA) | payer OTHER, SELFPAY | PROVIDERS: PCP Physician Assistant; Visit Provider Physician Assistant | DX: E11.9 Type 2 diabetes mellitus without complications (principal); E78.2 Mixed hyperlipidemia; E66.813 Obesity, class 3; Z68.42 Body mass index [BMI] 45.0-49.9, adult; L40.50 Arthropathic psoriasis, unspecified; I10 Essential (primary) hypertension | CPT/HCPCS: 96127; 99212 ==

== ENCOUNTER 2024-10-23 08:22 | Outpatient (AMB) | payer OTHER, SELFPAY ==
--- NOTE | 2024-10-23 08:23 | MHC.OFFVIS ---
Vital Signs 10/23/24 08:27 Height 5 ft 8 in Weight 309 lb 1.409 oz BMI 47.0 BP 120/80 Blood Pressure Location Rt brachial Position Sitting Pulse 79 Pulse Source Pulse Oximeter Pulse Oximetry (%) 98 Oxygen Delivery Method Room Air Intake Visit Reasons: PsA Intake Note: Patient presents for PsA follow up. Allergies Penicillins [PENICILLINS] Allergy (Severe, Verified 10/23/24 08:26) DIFFICULTY BREATHING Fish Containing Products Allergy (Intermediate, Verified 10/23/24 08:26) swollen Medication List - Last Reconciled 10/23/24 by Vero Ag MD acetaminophen ER (Tylenol Arthritis Pain) 650 mg PO Q12H 90 days atorvastatin 20 mg PO DAILY 90 days blood pressure test kit-large As directed blood pressure test kit-wrist As directed blood sugar diagnostic (FreeStyle Lite Strips) As directed blood-glucose meter (FreeStyle Lite Meter kit) As directed bupropion HCl SR 100 mg PO QAM cholecalciferol (vitamin D3) 25 mcg PO DAILY 90 days [diabetic shoes As directed] Enbrel SureClick (etanercept) 50 mg subcut QWEEK NS folic acid 1 mg PO DAILY ibuprofen 600 mg PO Q8H PRN lancets (FreeStyle Lancets) As directed losartan 50 mg PO DAILY metformin 1,000 mg (2 x 500 mg) PO BID 90 days methotrexate sodium 15 mg (6 x 2.5 mg) PO QWEEK miscellaneous medical supply 1 ea miscellaneous DAILY 99 days cudyuxkelxko-obhlovwe-dzeppo (Multivitamin 50 Plus tablet) 1 tab PO DAILY omeprazole 40 mg PO DAILY semaglutide (Ozempic) 1 mg (0.75 mL) subcut QWEEK 90 days tirzepatide (weight loss) (Zepbound) 2.5 mg (0.5 mL) subcut QWEEK 4 weeks tramadol 50 mg PO Q6H PRN 7 days HPI Comments Details: Patient is a 58-year-old male with hyperlipidemia, hypertension, diabetes, polyarticular osteoarthritis (Bilateral knee replacement, Hip OA, hand OA, right shoulder replacement), psoriasis complicated by psoriatic arthritis here today for follow up Interval History: Patient last seen 03/17/[address] Gomez. At that time he was following up for his psoriasis and psoriatic arthritis. He was on Enbrel and methotrexate and doing well continuing to have small patches on the elbows but they were not particularly bothersome. 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 There were no swollen joints at that time. Exam did not show any synovitis and no changes were made to his medications. Today, Patient recently had his right knee replaced 08/2024. Still doing PT for his knee Doing well overall Complaining of bilateral 1st CMC joint pain Rheumatologic History: DDx around 2004 Initially started on Mtx then Enbrel added and this combo has been efficacious Initial history by Jennifer Perez: Mr. Abarca 57 yoM is here, on PCP referral to transfer care. He has a history of PsO/PsA and takes Enbrel 50 mg QW prescribed by DERM. He skin has done fairly well on Enbrel but still has some patches to his scalp. He denies Uveitis. He uses a topical creme for small patches. He has been experiencing increased joint pains to hands and lower back. He has had multiple joint surgeries most recently the left knee replacement in june 2023 - still doing PT. Denies any challenges with rehab. Current Rheumatology Medication(s): Enbrel 50 mg sc weekly Methotrexate 15 mg weekly Folic acid 1 mg daily [facility] Medical History (Updated 09/30/24 @ 15:42 by Cruz Lay PA-C) Long-term use of immunosuppressant medication Screening examination for infectious disease Psoriatic arthritis COVID-19 Skin lesion Type 2 diabetes mellitus Vitamin D deficiency Psoriasis Hypercholesterolemia Bipolar disorder Depression Rheumatoid arthritis LENNOX (generalized anxiety disorder) HTN (hypertension) DMII (diabetes mellitus, type 2) Surgical History Total knee replacement status H/O knee surgery History of sleeve gastrectomy History of right shoulder replacement H/O arthroscopy of knee History of colonoscopy Family History Father Diabetes Dialysis patient Mother Hypertension Heart problem Social History Housing: House Alcohol intake: never Patient Tobacco Use Status: Never used Tobacco e-Cigarette/Vaping Use: Never Used Second Hand Smoke Exposure: No service: No Current occupational status: unemployed Cognitive needs: No Hearing needs: No Vision needs: Yes Review of Systems Const Details: Review of Systems Constitutional: Denies fever, chills, weight loss ENT: Denies vision changes, eye pain or eye redness, dental caries, dry mouth GI: Denies nausea, vomiting, diarrhea, abdominal pain, change in BM Pulm: Denies SOB, MUSTAFA, hemoptysis, wheezing Cards: Denies chest pain, palpitations Skin: Denies Raynaud's, rash, nail changes, photosensitivity, 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 Well appearing and in no apparent painful distress HEENT Conjunctiva and sclera clear. ?Pupils equal round and reactive to light. ?No lymphadenopathy. ? CHEST/RESPIRATORY SYSTEM Normal respiratory effort and able to speak in complete sentences. ?Clear to auscultation bilaterally. ?No crackles, rales, rhonchi, wheezes heard. CARDIAC SYSTEM Regular rate and rhythm. ?S1 and S2 heard no murmurs. ?Radial pulses intact bilaterally MSK Hands: ?Able to make a fist. No synovitis noted to the MCPs, PIPs or DIPs. ?No tenderness to palpation of these joints. No deformities noted. ?Bilateral 1st CMC TTP and positive grind test Wrists: ?Full range of motion at the wrists without pain. ?No tenderness to palpation or synovitis noted to the wrists. Elbows: Full range of motion without pain. No tenderness, weakness, swelling, increased warmth or erythema. Shoulders: Full range of active range of motion without pain. No tenderness, weakness, swelling, increased warmth or erythema. Knees: ?Full range of motion. ?No tenderness, swelling, increased warmth or erythema.?No effusion or crepitations. Surgical scar noted over bilateral knees Ankles: Full range of motion. ?No tenderness, swelling, increased warmth or erythema.? Feet: ?Negative squeeze test. ?No tenderness to palpation or swelling of the MTPs. Tender points:?No tenderness to palpation of the bilateral trapezius, supraspinatus, greater trochanters, anterior costochondral junctions, bilateral gluteal areas, bilateral suboccipital muscle insertions SKIN Erythema to the elbows Results Reviewed Results Reviewed: Laboratory Tests 08/04/24 10:23 WBC 7.6 RBC 4.87 Hgb 14.2 Hct 42.2 Plt Count 288 ESR 16 H Sodium 141 Potassium 4.0 Chloride 108 Carbon Dioxide 24 BUN 18 H Creatinine 0.85 AST 20 ALT 19 Alkaline Phosphatase 102 C-Reactive Protein 0.34 25-OH Vitamin D Total 34.7 Laboratory Tests 12/06/23 Unknown Rheumatoid Factor < 13.0 Cycl Citrul Peptide IgG <16 HLA-B27 Negative Laboratory Tests 12/06/23 Unknown Hepatitis A IgM Ab Nonreactive Hep Bs Antigen Negative Hep Bs Antibody NONREACTIVE Hep B Core Total Ab Nonreactive Hepatitis C Ab (EIA) Nonreactive TB Test (T-Spot) Com Negative Assessment & Plan Assessment & Plan (1) Psoriatic arthritis: Code(s): L40.50 - Arthropathic psoriasis, unspecified Category: Medical Plan: #PsO/PsA Patient is a 58-year-old male with psoriasis complicated by psoriatic arthritis here today for follow up. Currently in remission on Enbrel and methotrexate Plan - Enbrel 50mg SC weekly - Methotrexate 15mg weekly - Folic acid 1 mg daily - RTC 5 months - Labs before visit: CBC, CMP, ESR, CRP, hepatitis panel, T spot (2) Polyarticular osteoarthritis: Code(s): M15.9 - Polyosteoarthritis, unspecified Plan: #Polyarticular OA Patient with polyarticular osteoarthritis currently affecting his bilateral 1st CMC joints. Recommended splinting but patient deferred at this time stating that it is not that much. Also offered steroid injections in the future (3) Encounter for monitoring of etanercept therapy: Code(s): Z51.81 - Encounter for therapeutic drug level monitoring; Z79.620 - supervisor intermediates (current) use of immunosuppressive biologic Plan: #Long-term Use of TNF Inhibitors: Enbrel Discussed with the patient the benefits and risks of TNF inhibitors for the management of the rheumatic condition Benefits include reduce pain, maintenance of remission and reduction of flares as well as ?progression of the disease Risks include injection sites/infusion reactions, serious infections (such as bacterial infections, opportunistic infections), malignancy, delaminating syndromes, autoimmune phenomena, CHF exacerbations, palmar plantar psoriasis and cytopenias Recommended rotating injection sites, and holding medication during and for up to 1 week after resolution of a febrile illness or open skin wound (4) Encounter for methotrexate monitoring: Code(s): Z51.81 - Encounter for therapeutic drug level monitoring; Z79.631 - USP (current) use of antimetabolite agent Plan: #Long-term Current Use of Methotrexate Discussed with patient the benefits and risks of methotrexate for managing their rheumatic condition Benefits include reduced pain, reduced mortality, maintenance of remission and reduction of flares Risks include oral ulcers, photosensitivity, hepatotoxicity, hematologic toxicity, pneumonitis, flu-like symptoms (especially day after administration), nodulosis, lymphomas ? Limit alcohol and avoid Bactrim ? Monitoring: ?CBC, BMP, LFTs every 3-4 months and hepatitis serologies as needed Plan I spent 30 minutes reviewing the record and labs, taking a history, examining the patient, discussing the treatment plan, ordering diagnostic work up and documenting in the medical record Orders: Orders C Reactive Protein 5 Months L40.50 - Arthropathic psoriasis, unspecified T Spot TB 5 Months L40.50 - Arthropathic psoriasis, unspecified Complete Blood Count Auto Diff 5 Months L40.50 - Arthropathic psoriasis, unspecified Comprehensive Met. Panel 5 Months L40.50 - Arthropathic psoriasis, unspecified Erythrocyte Sedimentation Rate 5 Months L40.50 - Arthropathic psoriasis, unspecified Hepatitis A,B,C Profile 5 Months L40.50 - Arthropathic psoriasis, unspecified Medications: Changed From methotrexate sodium 15 mg (6 x 2.5 mg) PO QWEEK 72 tabs 1RF L40.50 - Arthropathic psoriasis, unspecified, L40.9 - Psoriasis, unspecified To methotrexate sodium 15 mg (6 x 2.5 mg) PO QWEEK 90 days 78 tabs 1RF L40.50 - Arthropathic psoriasis, unspecified, L40.9 - Psoriasis, unspecified Refilled folic acid 1 mg PO DAILY 90 tabs 1RF Z79.60 - supervisor intermediates (current) use of unspecified immunomodulators and immunosuppressants Enbrel SureClick (etanercept) 50 mg subcut QWEEK 4 mL 5RF NS L40.50 - Arthropathic psoriasis, unspecified, L40.9 - Psoriasis, unspecified Coding Level of Care Code Est Pt Level 4 (36521) Complex EM visit Add On G2211 Diagnoses Psoriatic arthritis L40.50 Polyarticular osteoarthritis M15.9 Encounter for monitoring of etanercept therapy Z51.81; Z79.620 Encounter for methotrexate monitoring Z51.81; Z79.631
--- OUTSIDE RECORDS SUMMARY | 2024-10-23 08:24 | XMS_ITS | Clinical Summary ---
Author Organization [address] [facility] Address [address] [place] [address] Phone Care Team Providers Care Mop Handle Assembler Name Role Phone Mario Palmer DO Primary Care Provider [phone] Allergies No known active allergies Active Problems [...] topic Insurance MEDICAID - [place] Care Teams Mop Handle Assembler Relationship Specialty Start Date End Date Mario Palmer DO [address] [address] PCP - General Family Medicine 04/27/24
[2024-10-23 08:27] VITALS: BP 120/80; PULSE 79; O2SAT 98; BMI 47.0
== END 2024-10-23 09:04 | disposition home or self-care (01) ==
LOC: HO.RHE 08:22
PROVIDERS: PCP Physician Assistant; Visit Provider Student in an Organized Health Care Education/Training Program
DX: L40.50 Arthropathic psoriasis, unspecified (principal); M15.9 Polyosteoarthritis, unspecified; Z51.81 Encounter for therapeutic drug level monitoring; Z79.620 Long term (current) use of immunosuppressive biologic; Z79.631 Long term (current) use of antimetabolite agent
CPT/HCPCS: 99214; G2211

== ENCOUNTER → 2024-10-23 08:22 | Outpatient (BNVA) | payer OTHER, SELFPAY | PROVIDERS: PCP Physician Assistant; Visit Provider Student in an Organized Health Care Education/Training Program | DX: L40.50 Arthropathic psoriasis, unspecified (principal); M15.9 Polyosteoarthritis, unspecified; Z51.81 Encounter for therapeutic drug level monitoring; Z79.620 Long term (current) use of immunosuppressive biologic; Z79.631 Long term (current) use of antimetabolite agent | CPT/HCPCS: 99212 ==

== ENCOUNTER 2025-01-12 09:35 | Outpatient (AMB) | payer OTHER, SELFPAY ==
--- NOTE | 2025-01-12 09:39 | MHC.PC.OV ---
Vital Signs 01/12/25 09:41 Height 5 ft 8 in Weight 315 lb 6 oz BMI 47.9 BP 130/66 Blood Pressure Location Lt brachial Position Sitting Pulse 71 Pulse Source Pulse Oximeter Temp 97.1 F Temp Source Temporal Artery Scan Pulse Oximetry (%) 98 Oxygen Delivery Method Room Air Intake Visit Reasons: f/u DMII/ HTN Intake Note: Patient is here to follow up on DM, HTN. Plate Maker Zinc Required: No Automotive Sales Specialist: Not Required per policy Accompanied by: Self / Same As Patient Allergies Penicillins (PENICILLINS) Allergy (Severe, Verified 01/12/25 09:49) DIFFICULTY BREATHING Fish Containing Products Allergy (Intermediate, Verified 01/12/25 09:49) swollen Medication List - Last Reconciled 01/12/25 by Cruz Lay PA-C acetaminophen ER (Tylenol Arthritis Pain) 650 mg PO Q12H 90 days atorvastatin 20 mg PO DAILY 90 days blood pressure test kit-large As directed blood pressure test kit-wrist As directed blood sugar diagnostic (FreeStyle Lite Strips) As directed blood-glucose meter (FreeStyle Lite Meter kit) As directed bupropion HCl SR 100 mg PO QAM cholecalciferol (vitamin D3) 25 mcg PO DAILY 90 days [diabetic shoes As directed] Enbrel SureClick (etanercept) 50 mg subcut QWEEK NS folic acid 1 mg PO DAILY ibuprofen 600 mg PO Q8H PRN lancets (FreeStyle Lancets) As directed losartan 50 mg PO DAILY metformin 1,000 mg (2 x 500 mg) PO BID 90 days methotrexate sodium 15 mg (6 x 2.5 mg) PO QWEEK 90 days miscellaneous medical supply 1 ea miscellaneous DAILY 99 days yuysfzhunprf-xpvyzeud-rrpjwy (Multivitamin 50 Plus tablet) 1 tab PO DAILY omeprazole 40 mg PO DAILY tirzepatide (weight loss) (Zepbound) 2.5 mg (0.5 mL) subcut QWEEK 4 weeks tramadol 50 mg PO Q6H PRN 7 days Tobacco use date assessed: 01/12/25 Dental Screening Dental Screen Date: 01/12/25 Did you have a dental visit in the last 12 months?: Yes Did you have a dental problem in the last 6 months where you did not have access to dental care?: No Was dental information given to patient?: Patient has dentist HPI f/u DMII/ HTN HPI Details Chucky is a 59 year male here today for a follow-up visit. ? Patient has past medical history significant for hypertension, depression, type 2 diabetes, YARIEL, anxiety, history of cocaine abuse, psoriatic arthritis. Class 3 Obesity: The patient reports a weight of 315 pounds, which has increased from 309 pounds despite increased physical activity and improved diet. He engages in regular exercise, averaging 12,000 to 15,000 steps daily, and has recently completed a 38-mile bike ride. Despite these efforts, he experiences low energy levels when sedentary, which improve with activity. ? .. ?? ? Depression/ anxiety:? Patient is followed by psychiatrist( [facility]) who prescribes his mental health medications.? He reports.? he recently went through severe depression roug has discontinued h t and the use of prazosin and Risperdal . .? He continues to work with his mental health therapist and a psychiatrist on his depression. .. Obstructive sleep apnea: The patient has obstructive sleep apnea and uses a CPAP machine nightly, which is essential for his sleep. He is due for a new CPAP machine and requires documentation of usage for insurance purposes. ? .. ? Diabetes: Today's A1c is 6.5. Has been compliant with metformin a 1000 mg b.i.d. he does report an episode of having a blood sugar of 300 though unclear if this is around the time he got a cortisone injection in his hip. PLAN: Will increase his GLP 12 5 mg weekly for better glycemic control ? .. ? HTN:? Doesnt check his BP at home, blood pressure today in office acceptable.? Patient denies any chest discomfort, headaches or shortness of breath. Psoriatic arthritis:? He continues to follow Rheumatology. 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 Continues on injections of Embrel and weekly methotrexate.? .. Hypothyroidism:? Most recent TSH acceptable.? He has not been taking levothyroxine. Will continue to hold levothyroxine and check TSH to assure stable.. [facility] Medical History (Updated 01/12/25 @ 09:54 by Cruz Lay PA-C) Long-term use of immunosuppressant medication Screening examination for infectious disease Psoriatic arthritis COVID-19 Skin lesion Type 2 diabetes mellitus Vitamin D deficiency Psoriasis Hypercholesterolemia Bipolar disorder Depression Rheumatoid arthritis LENNOX (generalized anxiety disorder) HTN (hypertension) DMII (diabetes mellitus, type 2) Surgical History Total knee replacement status H/O knee surgery History of sleeve gastrectomy History of right shoulder replacement H/O arthroscopy of knee History of colonoscopy Family History Father Diabetes Dialysis patient Mother Hypertension Heart problem Social History Housing: House Alcohol intake: never Patient Tobacco Use Status: Never used Tobacco e-Cigarette/Vaping Use: Never Used Second Hand Smoke Exposure: No service: No Current occupational status: unemployed Cognitive needs: No Hearing needs: No Vision needs: Yes Questionnaire Thrive Questionnaire Date Thrive assessed: 09/30/24 I am a: Patient What is your living situation today?: I have a steady place to live Within the past 12 months, did the food you bought not last and you didn't have the money to get more?: Never true Within the past 12 months, did you worry whether your food would run out before you got money to buy more?: Never true Do you have trouble paying for medicines?: No Do you have trouble getting transportation to medical appointments?: No Do you have trouble paying your heating and electricity bill?: I choose not to answer this question Do you have trouble taking care of your child, family member or friend?: No Do you have trouble with day-to-day activities such as bathing, preparing meals, shopping, managing finances, etc.?: I choose not to answer this question Are you currently unemployed and looking for a job?: I choose not to answer this question Are you interested in more education?: I choose not to answer this question Please select the resources that you would like help with: None Currently or been in a relationship where the following occur: I choose not to answer THRIVE Score: 0 LENNOX-7 AMB Questionnaire LENNOX-7 Date LENNOX - 7 assessed: 09/30/24 Source: Developed by Drs. Geovany Xie, Andree [employer] Anthony and colleagues, with an educational jackelyn from [employer]. Review of Systems Const Denies headache(s) Eyes Denies loss of vision ENT Denies vertigo, Denies dizziness, Denies headache(s) and Denies sore throat Card Denies chest pain, Denies leg edema and Denies lightheadedness Resp Denies cough, Denies hemoptysis and Denies wheezing GI Denies abdominal pain, Denies melena, Denies constipation, Denies diarrhea and Denies vomiting Denies dysuria, Denies urinary frequency and Denies urinary urgency Musc Denies arthralgias, Denies joint swelling, Denies numbness and Denies tingling Neuro Denies Abnormal speech present, Denies behavioral changes, Denies vertigo, Denies dizziness, Denies headache(s), Denies loss of vision, Denies memory loss, Denies numbness and Denies tingling Psych Denies anxiety, Denies behavioral changes, Denies depression, Denies memory loss and Denies panic attacks Lobo/Lymph Denies easy bleeding and Denies easy bruising Aller/Immun Denies wheezing Physical exam (Primary Care) Vital Signs: Last Vital Signs Temp 97.1 F 01/12/25 09:41 Pulse 71 01/12/25 09:41 BP 130/66 01/12/25 09:41 Pulse Ox 98 01/12/25 09:41 Oxygen Delivery Method Room Air 01/12/25 09:41 BMI result Body Mass Index 47.9 BMI Assessment/Plan discussion: High BMI High, discussed plan: lifestyle, weight reduction, dietary and physical activity Tobacco/Smoking Status: Tobacco use Status Tobacco use date assessed 01/12/25 01/12/25 09:47 Patient Tobacco Use Status Never used Tobacco 01/12/25 09:47 e-Cigarette/Vaping Use Never Used 01/12/25 09:47 Thrive Assessment: Date of Thrive Assessment Date Thrive assessed 09/30/24 01/12/25 09:47 Currently or been in a relationship where the following occur: I choose not to answer Const General: healthy appearing, no acute distress, alert and awake Nutritional Appearance: well nourished Orientation/consciousness: oriented to person, oriented to place and oriented to time HENMT Ears: TM's normal bilaterally General nose exam: Normal nasal mucous membranes and turbinates present Eyes Conjunctivae: conjunctivae normal Sclerae: sclerae normal Pupils: Equal, round and reactive pupils present Neck Neck: Yes no lymphadenopathy and Yes no JVD Thyroid: Thyroid normal Carotids: no bruits Resp Effort & Inspection: normal respiratory effort and not tachypneic Auscultation: no crackles, no rales, no rhonchi and no wheezes Cardio Rate: regular rate Rhythm: regular rhythm Heart sounds: no murmurs and normal S1 and S2 GI Palpation (GI): Soft to palpation, nontender, no hepatomegaly and no splenomegaly Auscultation: normal bowel sounds Skin General skin exam: no rashes or lesions noted and dry skin Neuro General: oriented to person, oriented to place and oriented to time Cranial nerves: Yes Equal, round and reactive pupils present Speech: No Abnormal speech present Gait exam (Neuro): Normal gait present Motor exam (neuro): no tremor noted Extrem Right upper extremity: full ROM Left upper extremity: full ROM Right lower extremity: full ROM; no edema Left lower extremity: full ROM; no edema Psych Mental Status: mental status grossly normal Speech and movement: Normal speech and movement present Affect: normal affect Attitude: cooperative Thought process: Normal thought process present Results AMB Hemoglobin A1c AMB Hemoglobin A1c 6.5 % Last Edit by DEREK Christy on 01/12/25 09:52 Coding Level of Care Code Est Pt Level 4 (73476) Diagnoses YARIEL (obstructive sleep apnea) G47.33 Type 2 diabetes mellitus without complication, without long-term current use of insulin E11.9 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 (2) DMII (diabetes mellitus, type 2): Code(s): E11.9 - Type 2 diabetes mellitus without complications Category: Medical Qualifiers: Diabetes mellitus longterm insulin use: without marine oil terminal superintendent use Diabetes mellitus complication status: without complication Qualified Code(s): E11.9 - Type 2 diabetes mellitus without complications Plan: Patient's type 2 diabetes well controlled with current med regime. We have transitioned to an alternative GLP 1. Today's A1c is 6.5 . Goal A1c is to be below 7.0 (3) HLD (hyperlipidemia): Code(s): E78.5 - Hyperlipidemia, unspecified Category: Medical Qualifiers: Hyperlipidemia type: mixed hyperlipidemia Qualified Code(s): E78.2 - Mixed hyperlipidemia Plan: Patient's most recent lipid panel showing excellent control of his total cholesterol and LDL. Will continue his current dose of statin therapy with goal LDL to remain below 100 (4) Class 3 obesity: Code(s): E66.813 - Obesity, class 3 Category: Medical Plan: Patient does understand his BMI is above 40 and will work on trying to be more physically active and adapting to better eating habits to reduce his weight. Will continue up titrate GLP 1 to help with appetite suppression and weight loss. (5) Psoriatic arthritis: Code(s): L40.50 - Arthropathic psoriasis, unspecified Category: Medical Plan: Patient followed by Rheumatology. Continues on methotrexate and Enbrel with fairly good response on reducing his overall joint pains. (6) HTN (hypertension): Code(s): I10 - Essential (primary) hypertension Category: Medical Qualifiers: Hypertension type: primary hypertension Qualified Code(s): I10 - Essential (primary) hypertension Plan: Patient's blood pressure acceptable today in office. Will continue his current dose of antihypertensive medications with goal blood pressure to remain below 140/90 Orders: Orders AMB Hemoglobin A1c Today E11.9 - Type 2 diabetes mellitus without complications Medications: New tirzepatide (weight loss) (Zepbound) 5 mg (0.5 mL) subcut QWEEK 2 mL 1RF 4 weeks E11.9 - Type 2 diabetes mellitus without complications, E66.813 - Obesity, class 3, G47.33 - Obstructive sleep apnea (adult) (pediatric) Discontinued tirzepatide (weight loss) (Zepbound) for 4 weeks Discontinued Reason: Doctor's Order 2.5 mg (0.5 mL) subcut QWEEK 4 weeks 2 mL 0RF E66.813 - Obesity, class 3
[2025-01-12 09:41] VITALS: BP 130/66; PULSE 71; TEMP 36.2; O2SAT 98; BMI 47.9
--- OUTSIDE RECORDS SUMMARY | 2025-01-12 10:41 | XMS_ITS | Clinical Summary ---
Author Organization [facility] Address [address] [address] Phone Care Team Providers Care Shelver Name Role Phone Cruz Lay Primary Care Provider + Allergies Active Allergy Reactions Criticality Noted Date Comments Penicillins 07/10/2023 Medications etanercept (ENBREL SURECLICK) 50 mg/mL (1 mL) PnIjIndications: Polyarticular psoriatic arthritis Inject 1 mL (50 mg total) under the skin once a week. 4 mL 3 05/24/20 23 Active aspirin 325 MG EC tablet Take 325 mg by mouth. 06/26/19 24 Active atorvastatin (LIPITOR) 10 MG tablet Take 1 tablet by mouth every morning. 04/20/20 23 Active FREESTYLE LITE Strp strips USE DIRECTED TO TEST ONCE DAILY 06/24/19 24 Active buPROPion (WELLBUTRIN SR) 100 MG SR 12 hr tablet Take 100 mg by mouth every morning. 04/21/20 23 Active celecoxib (CELEBREX) 200 MG capsule Take 200 mg by mouth daily. 06/26/19 24 Active TRULICITY 0.75 mg/0.5 mL subcutaneous injection INJECT 0.75 MG (0.5 ML) SUBCUTANEOUSLY WEEKLY 06/23/19 24 Active levothyroxine (SYNTHROID,LEVOT HROID) 25 MCG tablet Take 1 tablet by mouth every morning. 04/29/20 23 Active metFORMIN (GLUCOPHAGE) 500 MG tablet Take 1 tablet by mouth 2 (two) times a day. 05/29/19 24 Active losartan (COZAAR) 50 MG tablet Take 1 tablet by mouth every morning. 04/20/20 23 Active methotrexate 2.5 MG Oral tablet TAKDE 6 TABLETS BY MOUTH WEEKLY 04/23/20 23 Active omeprazole (PRILOSEC) 40 MG capsule Take 1 capsule by mouth every morning. 04/29/20 23 Active traMADoL (ULTRAM) 50 mg tablet Take 50 mg by mouth. 07/02/19 24 Active Family History Medical History Relation Comments Diabetes Father Heart disease Father Relation Status Comments Father Social History Tobacco Use Types Packs/Day Years Used Date Smoking Tobacco: Former Cigarettes Smokeless Tobacco: Never Tobacco Cessation:Counseling Given: Not Answered Alcohol Use Standard Drinks/Week Comments Not Currently 0 (1 standard drink = 0.6 oz pur e alcohol) Education Answer Date Recorded Are you interested in more education? Not on vera e 01/02/2023 Are you concerned about learning? Not on file 01/02/2023 No 01/02/2023 No 01/02/2023 Digital Access Answer Date Recorded No 01/02/2023 No 01/02/2023 Reliable internet access at home? Not on file 01/02/2023 Device with a working camera? Not on file Sex and Gender Information Value Date Recorded Sex Assigned at Not on file Legal Sex Male 10:10 AM EDT Gender Identity Not on file Sexual Orientation Not on file Plan of Treatment Health Maintenance Due Date Last Done Comments Adult Td,Tdap Booster 1964 CREATININE LEVEL 1964 LIPID PANEL 1964 POTASSIUM LEVEL 1964 TSH LEVEL 1964 COVID-19 VACCINE (#1) 1969 DEPRESSION SCREENING 1976 SMOKING Hx and SMOKELESS TOB ACCO SCREENING 1977 HEPATITIS C SCREENING 1982 HIV ONE-TIME SCREENING (18-6 5 YEARS) 1982 PNEUMOCOCCAL VACCINES (50+ y ears) (1 of 2 - PCV) 11/01/1983 ZOSTER VACCINES (1 of 2) 11/01/1983 COLOGUARD 2009 COLONOSCOPY 2009 COLORECTAL CANCER SCREENING 2009 FIT TEST 2009 FOBT 2009 SIGMOIDOSCOPY 2009 VIRTUAL COLONOSCOPY 2009 RSV VACCINE (1 - Risk 60-74 years 1-dose series) 2024 HEPATITIS A VACCINES Aged Out No long er eligible based on patient's age to complete this topic HIB VACCINES Aged Out No longer eligi ble based on patient's age to complete this topic MENINGOCOCCAL VACCINES (ACWY) Aged Out No longer eligible based on patient's age to complete this topic MENINGOCOCCAL VACCINES (B) Aged Out N o longer eligible based on patient's age to complete this topic Medical Devices Not on file Insurance MEDICARE PART A & B CARE MEDICARE REPLACEMENT MEDICARE PART A & B [facility] ONE CARE MEDICARE REPLACEMENT MEDICARE PART A & B [facility] ONE CARE MEDICARE REPLACEMENT MEDICARE PART A & B [facility] ONE CARE MEDICARE REPLACEMENT MEDICARE PART A & B [facility] ONE CARE MEDICARE REPLACEMENT MEDICARE PART A & B [facility] ONE CARE MEDICARE REPLACEMENT Care Teams Shelver Relationship Specialty Start Date End Date Cruz Lay PA [address] [place] [address] PCP - General Physician Boring And 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 It is not the complete legal health record.[facility]
--- OUTSIDE RECORDS SUMMARY | 2025-01-12 10:41 | XMS_ITS | Clinical Summary ---
Author Organization [address] [facility] Address [address] [place] [address] Phone Care Team Providers Care Last Pattern Grader Name Role Phone Mario Palmer DO Primary Care Provider [phone] Allergies No known active allergies Active Problems [...] DTaP,Tdap,and Td Vaccines (1 - Tdap) 11/01/1983 Pneumococcal Vaccine: 50+ Ye ars (2 of 2 - PCV) 2014 09/12/2012 Zoster Vaccines (2 of 2) 03/29/2021 02/01/2021 Cholesterol Screening (Lipid Panel) 04/20/2024 Colorectal Cancer Screening: Colonoscopy 04/20/2024 HIV Screening 04/20/2024 Hepatitis C Screening 04/20/2024 Social Influencers of Health Screening 04/20/2024 Depression Screening 05/27/2024 Diabetes: Annual Urine Albumin-Creatinine Ratio (uACR) 07/01/2024 Diabetes: Blood Sugar Contro l Test (HGBA1C) 07/01/2024 Hypertension/CHF/CAD Annual BMP Blood Test 07/01/2024 RSV Immunization Adult Patie nts (1 - Risk 60-74 years 1-dose series) 2024 Influenza Vaccine (#1) 2025 02/15/2022 HIB Vaccines Aged Out No longer eligi ble based on patient's age to complete this topic HPV Vaccines Aged Out No longer eligi ble based on patient's age to complete this topic Hepatitis A Vaccines Aged Out No long er eligible based on patient's age to complete this topic Hepatitis B Vaccines Aged Out No long er eligible [...] topic Insurance MEDICAID - [place] Care Teams Last Pattern Grader Relationship Specialty Start Date End Date Mario Palmer DO [address] [facility] [address] [place] [address] PCP - General Family Medicine 04/27/24
--- OUTSIDE RECORDS SUMMARY | 2025-01-12 10:41 | XMS_ITS | Clinical Summary ---
Author Organization [facility] Address [address] [place] [address] Care Team Providers Care Urban Design Consultant Name Role Phone Sarah Gaspar LIZ Primary Care Provider [phone] Source Comments PLEASE NOTE, if this patient [...] TEST) stripsIndication s:DM2 (diabetes mellitus, type 2) ([facility]) as needed for high blood sugar. 100 Each 3 3 Active lancetsIndicatio ns:DM2 (diabetes mellitus, type 2) ([facility]) TID 100 Each 3 3 Active methotrexate [...] mg tabletIndication s:DM2 (diabetes mellitus, type 2) ([facility]) Take 1 Tab by mouth 2 (two) [...] 4 Active omeprazole (PRILOSEC) [address] capsuleIndicatio ns:GERD (gastroesophagea l reflux disease) Take 1 Cap by mouth every morning before breakfast. Do not crush or chew. 30 Cap 2 4 Active sitagliptan (JANUVIA) 100 mg tabletIndication s:DM2 (diabetes mellitus, type 2) ([facility]) Take 1 Tab by mouth once daily. [...] (gastroesophageal reflux disease) 4 Bipolar 2 disorder ([facility]) 06/23/2013 Diabetes ([facility]) 03/24/2013 Osteoarthritis 03/24/2013 Psoriatic arthritis ([facility]) 03/24/2013 Overview (03/24/2013): Hands, elbow, feet, knees, shoulders HTN (hypertension) 03/24/2013 Depression 03/24/2013 Morbidly obese (CMS & HHS-HCC) 03/24/2013 Immunizations Immunization Administration Dates Next Due [...] 109 09/10/2014 3:53 PM EDT Temperature 36.4 C (97.6 F) 09/10/2014 3:53 PM EDT Respiratory Rate 16 09/10/2014 3:53 PM EDT Oxygen Saturation 96% 06/07/2014 11:26 AM EST Inhaled Oxygen Concentration - - Weight 154.7 kg (341 lb) 09/10/2014 3:53 PM EDT Height 173.4 cm (5' 8.25 ) 06/07/2014 11:[address] Body Mass Index 51.47 06/07/2014 11:26 AM EST Plan of Treatment Not on file Insurance [facility] [employer] PLAN Member Subscriber Plan / Payer (Ef fective 2013-Present) Name:Chucky Abarca Relation to Subscriber:Self Name:Chucky Abarca Payer ID:[id number] Group ID:[id number] Type:Medicaid Address: [facility] [address] [place] [address] Care Teams Urban Design Consultant Relationship Specialty Start Date End Date Sarah Gaspar NP [phone] [place] [address] PCP - General Internal Medicine 03/24/13
--- OUTSIDE RECORDS SUMMARY | 2025-01-12 10:41 | XMS_ITS | Patient Health Record ---
Author Organization [facility] Address [address] [place] [address] Care Team Providers Care Code Machine Operator Name Role Phone Cruz Lay Primary Care Provider Unavailab Austin Woo Unavailable [phone] Allergies Allergen (clinical drug ingredient) Drug/Non Drug Allergy documented on EMR Reaction Allergy Type Onset Date Status Fish derivative (substance) Fish-derived Products swelling Drug Allergy Active Substance with penicillin structure and antibacterial mechanism of action (substance) Penicillins difficulty breathing Drug Allergy Active Results Component Value Reference Range Notes HEMOGLOBIN A1C (GLYCOHEMOGLO BIN) Reviewed date:11/05/2024 10:24:48 AM Interpretation: Performing Lab: Notes/Report: HEMOGLOBIN A1C % (HH) 6 Reason For Referral No Information Medications Medication SIG (Take, Route, Frequency, Duration) Notes Start Date End Date Status hydrOXYzine HCl 25 MG 1 tablet as needed Orally Once a day Active Multivitamin Adults 50+ Active metFORMIN HCl 500 MG 1 tablet with a krystal l Orally Once a day Active Levothyroxine Sodium 25 MCG 1 tablet in the morning on an empty stomach Orally Once a day Not-Taking Methotrexate Sodium 2.5 MG as directed Orally Active Omeprazole 40 MG 1 capsule 30 minutes before morning meal Orally Once a day Active Ozempic (1 MG/DOSE) Active Extra Depth Orthopedic Shoes (1 Pair) with Customized Heat Molded Multidensity Innersoles (3 Pair) as directed Dx: NIDDM/Polyneuropathy (E11.42), Hammertoe Foot Deformity (M20.41,M20.42), Preulcerative Skin Lesion(s) (L85.1 Active Losartan Potassium 50 MG 1 tablet Orally Once a day Active Night Splint AFO - L1930 1 wear at rest; Duration: 30 days Active Enbrel Active Vitamin D3 25 MCG (1000 UT) 1 capsule Orally Once a day Not-Taking Atorvastatin Calcium 40 MG 1 tablet Orally Once a day Active Trulicity 0.75 MG/0.5ML as directed Subcutaneous Not-Taking Ibuprofen 600 MG 1 tablet with food o r milk as needed Orally Three times a day Active Etanercept Not-Takin g Folic Acid 1 MG 1 tablet Orally Once a day Active buPROPion HCl 100 MG 1 tablet Orally Twi ce a day Active Immunizations Vaccine Route Administration Date Status Comme nts Influenza Unknown 09/07/2024 Administered Social History Tobacco Use: Social History Observation Description Date Details (start date - stop date) Never Smoker NA - NA Tobacco use other than smoking: Question Answer Notes Are you an other tobacco user? No Tobacco Control (Standard) Question Answer Notes Tobacco use: Nonsmoker Additional Findings: Tobacco non-user Current no nsmoker AUDIT-C (Standard) Question Answer Notes Did you have a drink containing alcohol in the p ast year? No Points 0 Interpretation Negative Problems Problem Type SNOMED Code ICD Code Onset Dates Problem Status W/U Status Risk Notes Problem Acquired hammer toe of right foot (0777908599391086 ) Other hammer toe(s) (acquired), right foot (M20.41) Active confirmed Problem Acquired hammer toe of left foot (9518433178565539 ) Other hammer toe(s) (acquired), left foot (M20.42) Active confirmed Problem Polyneuropathy due to type 2 diabetes mellitus (227838379) Type 2 diabetes mellitus with diabetic polyneuropathy (E11.42) Active confirmed Problem Plantar fasciitis of left foot (0830228581737150 1) Plantar fasciitis of left foot (M72.2) Active confirmed Problem Interstitial myositis (29551352) 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) Active confirmed Vital Signs Heart Rate 80 /min 11/05/2024 Blood pressure diastolic 99 mm Hg 11/05/2024 Height 5ft 9in in 11/05/2024 Blood pressure systolic 146 mm Hg 11/05/2024 Weight 308 lbs 11/05/2024 BMI 45.48 kg/m2 11/05/2024 Procedures Procedure Date Ordered Date Performed Result Body Sit e 60268-RNDDQZA NAIL, 1-5 05/13/2024 N/A 35460-WHQK SKIN LESIONS, OVER 4 05/13/2024 N/A O2386-[id number] DYSTROPHIC NAILS ANY # 05/13/2024 N/A Encounters Encounter Location Date Provider Diagnosis [address] [address] 05/13/2024 Austin Munguia Type 2 diabetes mellitus with diabetic polyneuropathy E11.42 ; Other hammer toe(s) (acquired), right foot M20.41 ; Other hammer toe(s) (acquired), left foot M20.42 and Onychomycosis B35.[address] [address] 11/05/2024 Austin Munguia Pain in left foot M79.672 ; Plantar fasciitis of left foot M72.2 ; Calcaneal spur, left foot M77.32 ; Interstitial myositis of left foot M60.172 and Bursitis of left foot M77.[address] [address] 11/05/2024 Austin Munguia Assessments Encounter Date Diagnosis (ICD Code) Assessment Notes Treatment Notes Treatment Clinical Notes Section Notes 05/13/2024 Other hammer toe(s) (acquired), right foot (ICD-10 - M20.41) Patient Educated with: DIABETIC FOOT CARE INSTRUCTIONS. pdf (DIABETIC FOOT CARE INSTRUCTIONS. pdf) 05/13/2024 Type 2 diabetes mellitus with diabetic polyneuropathy (ICD-10 - E11.42) 11/05/2024 Pain in left foot (ICD-10 - M79.672) 11/05/2024 Plantar fasciitis of left foot (ICD-10 - M72.2) Patient Educated with: HEEL CORD STRETCHES.pdf (HEEL CORD STRETCHES.pdf ) Patient Educated with: RICE THERAPY.pdf (RICE THERAPY.pdf) 11/05/2024 Calcaneal spur, left foot (ICD-10 - M77.32) 05/13/2024 Other hammer toe(s) (acquired), left foot (ICD-10 - M20.42) 05/13/2024 Onychomycosis (ICD-10 - B35.1) 11/05/2024 Interstitial myositis of left foot (ICD-10 - M60.172) 11/05/2024 Bursitis of left foot (ICD-10 - M77.52) Plan Of Treatment Pending Test Test Name Order Date X ray : Foot, left 3V 11/05/2024 99402-PXTLNPY NAIL, 1-5 05/13/2024 06887-ZNTK SKIN LESIONS, OVER 4 05/13/20 24 L6384-NAXZNVHF DYSTROPHIC NAILS ANY # Next Appt Details Provider Name:Austin Munguia , 05/13/2025 08:30:00 AM, [address], [address], [place], [address], Insurance Providers Payer Name Payer Address Payer Phone Subscriber Number Group Number Insured Name Patient Relationship to Insured Coverage Start Date Coverage End Date [facility] [employer] Claims [address] [place] [phone] [id number] Chucky Abarca Self - patient is the insured Medical (General) History Medical History History ICD Code covid-19 type II diabetes Vitamin D deficiency Psoriasis Hypercholesterolemia Bipolar disorder Depression Rheumatoid arthritis skin lesion Hypertension generalized anxiety disorder Lyme disease Osteoporosis Psoriasis/eczema Anxiety Back,Hip,and Knee pain Broken bones Joint implants/screws Surgical History Surgery Date(Month/Year) gastrectomy sleeve right shoulder replacement arthroscopic knee surgery colonoscopy knee replacement, left 2022 Knee replacement right 09/08/24
== END 2025-01-12 10:07 | disposition home or self-care (01) ==
LOC: HO.HMCH 09:36
PROVIDERS: PCP Physician Assistant; Visit Provider Physician Assistant
DX: E11.9 Type 2 diabetes mellitus without complications (principal); L40.50 Arthropathic psoriasis, unspecified; E66.813 Obesity, class 3; Z68.42 Body mass index [BMI] 45.0-49.9, adult; G47.33 Obstructive sleep apnea (adult) (pediatric); E78.2 Mixed hyperlipidemia; I10 Essential (primary) hypertension

== ENCOUNTER → 2025-01-12 09:35 | Outpatient (BNVA) | payer OTHER, SELFPAY | PROVIDERS: PCP Physician Assistant; Visit Provider Physician Assistant | DX: I10 Essential (primary) hypertension (principal); E11.9 Type 2 diabetes mellitus without complications; F32.A Depression, unspecified; G47.33 Obstructive sleep apnea (adult) (pediatric); F41.9 Anxiety disorder, unspecified; L40.50 Arthropathic psoriasis, unspecified; E03.9 Hypothyroidism, unspecified; E78.2 Mixed hyperlipidemia; E66.813 Obesity, class 3; Z68.42 Body mass index [BMI] 45.0-49.9, adult | CPT/HCPCS: 83036; 99212 ==

== ENCOUNTER 2025-02-09 08:04 | Outpatient (AMB) | payer OTHER, SELFPAY ==
--- NOTE | 2025-02-09 08:25 | A.OFFVIS_ITS ---
Vital Signs 02/09/25 08:31 Height 5 ft 8 in Weight 315 lb 14.758 oz BMI 48.0 BP 138/94 H Blood Pressure Location Rt brachial Position Sitting Pulse 70 Pulse Source Pulse Oximeter Pulse Oximetry (%) 96 Oxygen Delivery Method Room Air Intake Visit Reasons: f/u PsA/PsO Intake Note: Patient presents for PsA/PsO follow up. Allergies Penicillins (PENICILLINS) Allergy (Severe, Verified 02/09/25 08:30) DIFFICULTY BREATHING Fish Containing Products Allergy (Intermediate, Verified 02/09/25 08:30) swollen HPI Comments Details: Patient is a 59-year-old male with hyperlipidemia, hypertension, depression, diabetes, GERD, polyarticular osteoarthritis (bilateral knee replacement, hip OA, hand OA and right shoulder replacement), psoriasis complicated by psoriatic arthritis here today for follow up Interval History: Patient last seen 10/23/24 with me - On enbrel 50mg weekly, MTx 15mg weekly and folic acid 1mg daily - Recently had his right knee replaced 08/2024. Still doing PT for his knee - Doing well overall - Complaining of bilateral 1st CMC joint pain, splinting recommended Today, - On enbrel 50mg weekly, MTx 15mg weekly and folic acid 1mg daily - Continues to complain bilateral 1st CMC joint pain, did not splint - Also complaining of muscle spasms Rheumatologic History: DDx around 2004 Initially started on Mtx then Enbrel added and this combo has been efficacious Initial history by Jennifer Perez: Mr. Abarca 57 yoM is here, on PCP referral to transfer care. He has a history of PsO/PsA and takes Enbrel 50 mg QW prescribed by DERM. He skin has done fairly well on Enbrel but still has some patches to his scalp. He denies Uveitis. He uses a topical creme for small patches. He has been experiencing increased joint pains to hands and lower back. He has had multiple joint surgeries most recently the left knee replacement in june 2023 - still doing PT. Denies any challenges with rehab. Current Rheumatology Medication(s): Enbrel 50 mg sc weekly Methotrexate 15 mg weekly Folic acid 1 mg daily [facility] Medical History (Updated 02/09/25 @ 08:59 by Vero Ag MD) Long-term use of immunosuppressant medication Screening examination for infectious disease Psoriatic arthritis COVID-19 Skin lesion Type 2 diabetes mellitus Vitamin D deficiency Psoriasis Hypercholesterolemia Bipolar disorder Depression Rheumatoid arthritis LENNOX (generalized anxiety disorder) HTN (hypertension) DMII (diabetes mellitus, type 2) Surgical History Total knee replacement status H/O knee surgery History of sleeve gastrectomy History of right shoulder replacement H/O arthroscopy of knee History of colonoscopy Family History Father Diabetes Dialysis patient Mother Hypertension Heart problem Social History Housing: House Alcohol intake: never Patient Tobacco Use Status: Never used Tobacco e-Cigarette/Vaping Use: Never Used Second Hand Smoke Exposure: No service: No Current occupational status: unemployed Cognitive needs: No Hearing needs: No Vision needs: Yes Review of Systems Const Details: Review of Systems Constitutional: Denies fever, chills, weight loss ENT: Denies vision changes, eye pain or eye redness, dental caries, dry mouth GI: Denies nausea, vomiting, diarrhea, abdominal pain, change in BM Pulm: Denies SOB, MUSTAFA, hemoptysis, wheezing Cards: Denies chest pain, palpitations Skin: Denies Raynaud's, nail changes, photosensitivity, SUPPORT CLERK: Denies headaches, weakness, paresthesias, recurrent falls MSK: as per HPI All other systems reviewed and are unremarkable except noted above Physical Exam Exam Exam: Vital signs reviewed Physical Examination CONSTITUITIONAL Patient alert and cooperative. Well appearing and in no apparent painful distress MSK Hands * Right Hand: Able to make a fist. No swelling or tenderness to palpation of the MCPs, PIPs or DIPs. No deformities noted. * Left Hand: Able to make a fist. No swelling or tenderness to palpation of the MCPs, PIPs or DIPs. No deformities noted. * Positive first CMC grinding test bilaterally Wrists * Right Wrist: Full ROM to flexion and extension. No swelling or TTP * Left Wrist: Full ROM to flexion and extension. No swelling or TTP Elbows * Right Elbow: Full ROM. No swelling or TTP. No TTP of the medial epicondyle. No TTP of the lateral epicondyle * Left Elbow: Full ROM. No swelling or TTP. No TTP of the medial epicondyle. No TTP of the lateral epicondyle Shoulders * Right shoulder: Full ROM. No swelling noted. No TTP of the AC joint. No TTP of the subacromial bursa. No TTP of the posterior shoulder * Left shoulder: Full ROM. No swelling noted. No TTP of the AC joint. No TTP of the subacromial bursa. No TTP of the posterior shoulder Knees * Right knee: Full ROM. No swelling noted. No TTP of the knee joint line. No TTP of pes anserine bursa * Left knee: Full ROM. No swelling noted. No TTP of the knee joint line. No TTP of pes anserine bursa. * Surgical scars noted anteriorly bilaterally Ankles * Right ankle: Good ankle dorsiflexion and plantar flexion. No swelling. No TTP of the ankle joint * Left ankle: Good ankle dorsiflexion and plantar flexion. No swelling. No TTP of the ankle joint Feet * Right foot: Negative squeeze test * Left foot: Negative squeeze test Tender points? * No tenderness to palpation of the bilateral trapezius, supraspinatus, anterior costochondral junctions, bilateral suboccipital muscle insertions SKIN Mild PsO patches noted to extensor surfaces of elbow Vital Signs: Last Vital Signs Pulse 70 02/09/25 08:31 BP 138/94 H 02/09/25 08:31 Pulse Ox 96 02/09/25 08:31 Oxygen Delivery Method Room Air 02/09/25 08:31 BMI result Body Mass Index 48.0 Results Reviewed Results Reviewed: Laboratory Tests 08/04/24 10:23 WBC 7.6 RBC 4.87 Hgb 14.2 Hct 42.2 Plt Count 288 ESR 16 H Sodium 141 Potassium 4.0 Chloride 108 Carbon Dioxide 24 BUN 18 H Creatinine 0.85 AST 20 ALT 19 Alkaline Phosphatase 102 C-Reactive Protein 0.34 25-OH Vitamin D Total 34.7 Laboratory Tests 12/06/23 Unknown Rheumatoid Factor < 13.0 Cycl Citrul Peptide IgG <16 HLA-B27 Negative Laboratory Tests 12/06/23 Unknown Hepatitis A IgM Ab Nonreactive Hep Bs Antigen Negative Hep Bs Antibody NONREACTIVE Hep B Core Total Ab Nonreactive Hepatitis C Ab (EIA) Nonreactive TB Test (T-Spot) Com Negative Assessment & Plan Assessment & Plan (1) Psoriatic arthritis: Comment: DDx around 2004 Initially started on Mtx then Enbrel added and this combo has been efficacious Code(s): L40.50 - Arthropathic psoriasis, unspecified Category: Medical Plan: #PsO/PsA Patient is a 59-year-old male with psoriasis complicated by psoriatic arthritis here today for follow up. Currently in remission on Enbrel and methotrexate Plan - Enbrel 50mg SC weekly - Methotrexate 15mg weekly - Folic acid 1 mg daily - Labs today: CBC, CMP, ESR, CRP, Hepatitis panel and T spot - RTC 6 months - Labs before visit: CBC, CMP, ESR, CRP (2) Polyarticular osteoarthritis: Code(s): M15.9 - Polyosteoarthritis, unspecified Plan: #Polyarticular OA Patient with polyarticular osteoarthritis currently affecting his bilateral 1st CMC joints. Recommended splinting (3) Encounter for monitoring of etanercept therapy: Code(s): Z51.81 - Encounter for therapeutic drug level monitoring; Z79.620 - FPC (current) use of immunosuppressive biologic Plan: #Long-term Use of TNF Inhibitors: Enbrel Discussed with the patient the benefits and risks of TNF inhibitors for the management of the rheumatic condition Benefits include reduce pain, maintenance of remission and reduction of flares a s well as ?progression of the disease Risks include injection sites/infusion reactions, serious infections (such as bacterial infections, opportunistic infections), malignancy, delaminating syndromes, autoimmune phenomena, CHF exacerbations, palmar plantar psoriasis and cytopenias Recommended rotating injection sites, and holding medication during and for up to 1 week after resolution of a febrile illness or open skin wound (4) Encounter for methotrexate monitoring: Code(s): Z51.81 - Encounter for therapeutic drug level monitoring; Z79.631 - roasterman (current) use of antimetabolite agent Plan: #Long-term Current Use of Methotrexate Discussed with patient the benefits and risks of methotrexate for managing their rheumatic condition Benefits include reduced pain, reduced mortality, maintenance of remission and reduction of flares Risks include oral ulcers, photosensitivity, hepatotoxicity, hematologic toxicity, pneumonitis, flu-like symptoms (especially day after administration), nodulosis, lymphomas ? Limit alcohol and avoid Bactrim ? Monitoring: ?CBC, BMP, LFTs every 3-4 months and hepatitis serologies as needed Plan I spent 30 minutes reviewing the record and labs, taking a history, examining the patient, discussing the treatment plan, ordering diagnostic work up and documenting in the medical record Coding Level of Care Code Est Pt Level 4 (48351) Complex EM visit Add On G2211 Diagnoses Psoriatic arthritis L40.50 Polyarticular osteoarthritis M15.9 Encounter for monitoring of etanercept therapy Z51.81; Z79.620 Encounter for methotrexate monitoring Z51.81; Z79.631
[2025-02-09 08:31] VITALS: BP 138/94; PULSE 70; O2SAT 96; BMI 48.0
== END 2025-02-09 08:59 | disposition home or self-care (01) ==
LOC: HO.RHES 08:04
PROVIDERS: PCP Physician Assistant; Visit Provider Student in an Organized Health Care Education/Training Program
DX: L40.50 Arthropathic psoriasis, unspecified (principal); M15.9 Polyosteoarthritis, unspecified; Z51.81 Encounter for therapeutic drug level monitoring; Z79.620 Long term (current) use of immunosuppressive biologic; Z79.631 Long term (current) use of antimetabolite agent
CPT/HCPCS: 99214; G2211

== ENCOUNTER → 2025-02-09 08:04 | Outpatient (BNVA) | payer OTHER, SELFPAY | PROVIDERS: PCP Physician Assistant; Visit Provider Student in an Organized Health Care Education/Training Program | DX: M18.0 Bilateral primary osteoarthritis of first carpometacarpal joints (principal); Z51.81 Encounter for therapeutic drug level monitoring; Z79.620 Long term (current) use of immunosuppressive biologic; Z79.631 Long term (current) use of antimetabolite agent | CPT/HCPCS: 99212 ==

== ENCOUNTER 2025-02-16 08:05 | Outpatient (AMB) | payer OTHER, SELFPAY ==
--- NOTE | 2025-02-16 08:09 | MHC.OFFVIS ---
Vital Signs 02/16/25 08:12 Height 5 ft 8 in Weight 315 lb BMI 47.9 BP 124/76 Blood Pressure Location Rt brachial Position Sitting Pulse 72 Pulse Source Pulse Oximeter Pulse Oximetry (%) 96 Oxygen Delivery Method Room Air Intake Visit Reasons: colo screening Intake Note: New pt for recall colo screening. Last was normal w/ Dr. Mitchell 2014. CC: Pt denies any current GI sx or concerns. Has a hx of GERD which is currently controlled with PPI. Diving Supervisor Required: No Accompanied by: Self / Same As Patient Allergies Penicillins (PENICILLINS) Allergy (Severe, Verified 02/16/25 08:22) DIFFICULTY BREATHING Fish Containing Products Allergy (Intermediate, Verified 02/16/25 08:22) swollen HPI HPI colo screening: Details: 59 year old? male with past medical history of obesity, YARIEL, sleeve gastrectomy, osteoarthritis, hyperlipidemia, diabetes, depression, hypertension is here today for pre colonoscopy screening.? Last colonoscopy in 2014. Patient was sent to us by his PCP.? ? Patient denies any gastrointestinal symptoms in the past or at present.? Denies any personal or family history of gastrointestinal disease, colon polyps, or CRC.? Denies history of difficulty with sedation or anesthesia in the past.? History of sleep apnea.? Denies any history of cardiac, renal, pulmonary, or hepatic disease.?? No history of infectious? diseases like hepatitis A, B, C, HIV or tuberculosis.? Patient is not on any anticoagulation [facility] Medical History (Updated 02/09/25 @ 08:59 by Vero Ag MD) Long-term use of immunosuppressant medication Screening examination for infectious disease Psoriatic arthritis COVID-19 Skin lesion Type 2 diabetes mellitus Vitamin D deficiency Psoriasis Hypercholesterolemia Bipolar disorder Depression Rheumatoid arthritis LENNOX (generalized anxiety disorder) HTN (hypertension) DMII (diabetes mellitus, type 2) Surgical History Total knee replacement status H/O knee surgery History of sleeve gastrectomy History of right shoulder replacement H/O arthroscopy of knee History of colonoscopy Family History Father Diabetes Dialysis patient Mother Hypertension Heart problem Social History Housing: House Alcohol intake: never Patient Tobacco Use Status: Never used Tobacco e-Cigarette/Vaping Use: Never Used Second Hand Smoke Exposure: No service: No Current occupational status: unemployed Cognitive needs: No Hearing needs: No Vision needs: Yes Review of Systems Const Denies weight gain and Denies weight loss ENT Reports no additional complaints, Denies dysphagia and Denies odynophagia Card Reports no additional complaints Resp Reports no additional complaints GI Denies abdominal pain, Denies belching, Denies melena, Denies bloating, Denies change in bowel habits, Denies dysphagia, Denies excessive flatus, Denies dyspepsia, Denies heartburn, Denies diarrhea, Denies loose stools, Denies nausea, Denies odynophagia and Denies vomiting Reports no additional complaints Musc Reports no additional complaints Neuro Reports no additional complaints Psych Reports no additional complaints Endo Reports no additional complaints Physical Exam Vital Signs: BMI result Body Mass Index 47.9 Const General: healthy appearing, no acute distress and well developed Nutritional Appearance: well nourished Orientation/consciousness: patient oriented x3 Resp Effort & Inspection: normal respiratory effort, able to speak in complete sentences, no tracheal deviation and symmetric chest movement Auscultation: clear to auscultation bilaterally Cardio Rate: regular rate GI Inspection: Yes normal to inspection and No distended Palpation (GI): Soft to palpation, not firm, nontender and No hepatosplenomegaly present Auscultation: normal bowel sounds General: Yes no CVA tenderness Back/Spine/Pelvis Back: no CVA tenderness Skin General skin exam: elasticity normal, turgor normal and dry skin Neuro General: patient oriented x3 Psych Appearance: grossly normal Mental Status: mental status grossly normal Assessment & Plan Assessment & Plan (1) Colon cancer screening: Code(s): Z12.11 - Encounter for screening for malignant neoplasm of colon Category: Medical (2) GERD (gastroesophageal reflux disease): Code(s): K21.9 - Gastro-esophageal reflux disease without esophagitis Qualifiers: Esophagitis presence: esophagitis presence not specified Qualified Code(s): K21.9 - Gastro-esophageal reflux disease without esophagitis Plan Patient denies any cardiac or respiratory symptoms.? Occasional reflux, controlled with PPI. Denies any issues with anesthesia in the past.? History of sleep apnea.? No history infectious diseases in the past or present.? Not on any anticoagulation therapy.? No family or personal history of colon cancer or polyps.? Patient denies melena, hematochezia, unintentional weight loss or ribbon like stools.? Discussed at length the pre-procedure,? prep, diet & medications as well as what to expect prior, during and after the procedure.?? Stressed the importance of good bowel prep.? Recommended the use of Vaseline or Calmoseptine OTC & baby wipes with bowel movements to promote comfort.? ?Patient verbalizes understanding and agrees to plan of care.? He was given the opportunity to ask questions and all questions answered.? We will see him after the procedure.? Orders: Referrals GI Procedure Notification Z12.11 - Encounter for screening for malignant neoplasm of colon Medications: New bisacodyl (Dulcolax (bisacodyl)) take 4 tabs at noon the day before your colonoscopy 20 mg (4 x 5 mg) PO ONCE 4 tabs 0RF constipation 1 day Z12.11 - Encounter for screening for malignant neoplasm of colon polyethylene glycol 3350 (Miralax) As directed by gastroenterology department at [facility] 238 grams PO ONCE 238 grams 0RF Z12.11 - Encounter for screening for malignant neoplasm of colon Refilled omeprazole 40 mg PO DAILY 90 caps 2RF Coding Level of Care Code New Pt Level 3 (08627) Diagnoses Colon cancer screening Z12.11 Gastroesophageal reflux disease, unspecified whether esophagitis present K21.9 Esophagitis presence: esophagitis presence not specified Time Spent (min) 40 Comment 30 minutes spent with patient and additional 10 minutes spent reviewing his records
[2025-02-16 08:12] VITALS: BP 124/76; PULSE 72; O2SAT 96; BMI 47.9
--- OUTSIDE RECORDS SUMMARY | 2025-02-16 08:57 | XMS_ITS | Clinical Summary ---
Author Organization [facility] Address [address] [place] [address] Care Team Providers Care Art Handler Name Role Phone Sarah Gaspar LIZ Primary Care Provider [phone] Source Comments PLEASE NOTE, if this patient [...] TEST) stripsIndication s:DM2 (diabetes mellitus, type 2) ([facility]) as needed for high blood sugar. 100 Each 3 3 Active lancetsIndicatio ns:DM2 (diabetes mellitus, type 2) ([facility]) TID 100 Each 3 3 Active methotrexate [...] s:DM2 (diabetes mellitus, type 2) ([facility] & [facility]) Take 1 Tab by mouth 2 (two) [...] mg tabletIndication s:DM2 (diabetes mellitus, type 2) ([facility]) Take 1 Tab by mouth once daily. [...] (gastroesophageal reflux disease) 4 Bipolar 2 disorder ([facility]) 06/23/2013 Diabetes ([facility]) 03/24/2013 Osteoarthritis 03/24/2013 Psoriatic arthritis ([facility]) 03/24/2013 Overview (03/24/2013): Hands, elbow, feet, knees, [...] Plan of Treatment Not on file Insurance [facility] [employer] Member Subscriber Plan / Payer (Ef fective 2013-Present) Name:Chucky Abarca Relation to Subscriber:Self Name:Chucky Abarca Payer ID:[id number] Group ID:[id number] Type:Medicaid Address: [facility] [address] [place] [address] Care Teams Art Handler Relationship Specialty Start Date End Date Sarah Gaspar NP [address] [place] [address] PCP - General Internal Medicine 03/24/13
--- OUTSIDE RECORDS SUMMARY | 2025-02-16 08:57 | XMS_ITS | Clinical Summary ---
Author Organization [facility] Address [address] [place] [address] Phone Care Team Providers Care Power Distributor Name Role Phone Mario Palmer DO Primary Care Provider [phone] Allergies No known active allergies Active Problems [...] topic Insurance MEDICAID - [place] Care Teams Power Distributor Relationship Specialty Start Date End Date Mario Palmer DO [address] [facility] [address] [place] [address] PCP - General Family Medicine 04/27/24
--- OUTSIDE RECORDS SUMMARY | 2025-02-16 08:57 | XMS_ITS | Patient Health Record ---
Author Organization [facility] Address [address] [facility] [place] [address] Care Team Providers Care Wallpaperer Name Role Phone Cruz Lay Primary Care Provider Unavailab Austin Woo Unavailable [phone] Allergies Allergen (clinical drug ingredient) Drug/Non Drug [...] Problem Acquired hammer toe of right foot (2511484307592487 ) Other hammer toe(s) (acquired), right foot (M20.41) Active confirmed Problem Acquired hammer toe of left foot (3487598169698678 ) Other hammer toe(s) (acquired), left foot (M20.42) Active confirmed Problem Polyneuropathy due to type 2 diabetes mellitus (642584826) Type 2 diabetes mellitus with diabetic polyneuropathy (E11.42) Active confirmed Problem Plantar fasciitis of left foot (7173622372097005 1) Plantar fasciitis of left foot (M72.2) Active confirmed Problem Interstitial myositis (50311405) 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) Active confirmed Vital Signs Heart Rate 80 /min 11/05/2024 Blood pressure diastolic 99 mm Hg 11/05/2024 Height 5ft 9in in 11/05/2024 Blood pressure systolic 146 mm Hg 11/05/2024 Weight 308 lbs 11/05/2024 BMI 45.48 kg/m2 11/05/2024 Procedures Procedure Date Ordered Date Performed Result Body Sit e 88021-RHVTADQ NAIL, 1-5 05/13/2024 N/A 55680-MVZX SKIN LESIONS, OVER 4 05/13/2024 N/A V6154-OWFKAWPJ DYSTROPHIC NAILS ANY # 05/13/2024 N/A Encounters Encounter Location Date Provider Diagnosis [address] [address] 05/13/2024 Austin Munguia Type 2 diabetes mellitus with diabetic polyneuropathy E11.42 ; Other hammer toe(s) (acquired), right foot M20.41 ; Other hammer toe(s) (acquired), left foot M20.42 and Onychomycosis B35.[address] [address] 11/05/2024 Austin Munguia Pain in left foot M79.672 ; Plantar fasciitis of left foot M72.2 ; Calcaneal spur, left foot M77.32 ; Interstitial myositis of left foot M60.172 and Bursitis of left foot M77.[address] [address] 11/05/2024 Austin Munguia Assessments Encounter Date Diagnosis [...] X ray : Foot, left 3V 11/05/2024 53133-DCNKBFY NAIL, 1-5 05/13/2024 38874-WWGA SKIN LESIONS, OVER 4 05/13/20 24 H7756-TLSAYTXN DYSTROPHIC NAILS ANY # Next Appt Details Provider Name:Austin Munguia , 05/13/2025 08:30:00 AM, [address] [facility], [address], [place], [address], Insurance Providers Payer Name Payer Address Payer Phone Subscriber Number Group Number Insured Name Patient Relationship to Insured Coverage Start Date Coverage End Date [facility] CCA SCO Claims [address] [place] [phone] [id number] Chucky Abarca Self - patient is the [...]
--- OUTSIDE RECORDS SUMMARY | 2025-02-16 08:57 | XMS_ITS | Clinical Summary ---
Author Organization [facility] Address [address] [address] Phone Care Team Providers Care Utility Person Name Role Phone Cruz Lay Primary Care [...] - Risk 60-74 years 1-dose series) 2024 INFLUENZA VACCINE (#1) 2024 HEPATITIS A VACCINES Aged Out No [...] file Insurance MEDICARE PART A & B ONE CARE MEDICARE REPLACEMENT MEDICARE PART A & B [employer] ONE CARE MEDICARE REPLACEMENT MEDICARE PART A & B [facility] ONE CARE MEDICARE REPLACEMENT Member Subscriber Plan / Payer (Ef fective 2016-Present) Name:Chucky Abarca Relation to Subscriber:Self Name:Chucky Abarca Payer ID:[id number] ([facility]) Group ID:[id number] Type:Medicare Address: [address] [facility] MEDICARE PART A & B [facility] ONE CARE MEDICARE REPLACEMENT MEDICARE PART A & B [facility] CARE MEDICARE REPLACEMENT MEDICARE PART A & B [facility] ONE CARE MEDICARE REPLACEMENT Care Teams Utility Person Relationship Specialty Start Date End Date Cruz Lay PA [address] [place] [address] PCP - General Physician Manager Commercial Sales 01/02/23 Additional Source Comments The information contained in this document represents components of the legal health record. It is not the complete legal health record.[facility]
== END 2025-02-16 08:38 | disposition home or self-care (01) ==
LOC: HO.HGI 08:06
PROVIDERS: PCP Physician Assistant; Visit Provider Nurse Practitioner Family
DX: Z01.818 Encounter for other preprocedural examination (principal); Z12.11 Encounter for screening for malignant neoplasm of colon; K21.9 Gastro-esophageal reflux disease without esophagitis
CPT/HCPCS: 99024

== ENCOUNTER → 2025-02-16 08:05 | Outpatient (BNVA) | payer OTHER, SELFPAY | PROVIDERS: PCP Physician Assistant; Visit Provider Nurse Practitioner Family | DX: Z12.11 Encounter for screening for malignant neoplasm of colon (principal); K21.9 Gastro-esophageal reflux disease without esophagitis | CPT/HCPCS: 99212 ==

== ENCOUNTER 2025-02-23 07:35 | Outpatient (REF) | payer OTHER, SELFPAY ==
--- OUTSIDE RECORDS SUMMARY | 2025-02-23 07:40 | XMS_ITS | Clinical Summary ---
Author Organization [facility] Address [address] [place] [address] Care Team Providers Care Pharmacy Billing Adjudicator Name Role Phone Sarah Gaspar LIZ Primary Care Provider [phone] Source Comments PLEASE NOTE, if this patient [...] TEST) stripsIndication s:DM2 (diabetes mellitus, type 2) as needed for high blood sugar. 100 Each 3 3 Active lancetsIndicatio ns:DM2 (diabetes mellitus, type 2) TID 100 Each 3 3 Active methotrexate [...] mg tabletIndication s:DM2 (diabetes mellitus, type 2) Take 1 Tab by mouth 2 (two) [...] mg tabletIndication s:DM2 (diabetes mellitus, type 2) Take 1 Tab by mouth once daily. [...] (gastroesophageal reflux disease) 4 Bipolar 2 disorder 06/23/2013 Diabetes 03/24/2013 Osteoarthritis 03/24/2013 Psoriatic arthritis 03/24/2013 Overview (03/24/2013): Hands, elbow, feet, knees, shoulders HTN (hypertension) 03/24/2013 Depression 03/24/2013 Morbidly obese 03/24/2013 Immunizations Immunization Administration Dates Next Due [...] Plan of Treatment Not on file Insurance [facility] [employer] Member Subscriber Plan / Payer (Ef fective 2013-Present) Name:Chucky Abarca Relation to Subscriber:Self Name:Chucky Abarca Payer ID:[id number] Group ID:[id number] Type:Medicaid Address: [facility] [address] [place] [address] Care Teams Pharmacy Billing Adjudicator Relationship Specialty Start Date End Date Sarah Gaspar NP [phone] [place] [address] PCP - General Internal Medicine 03/24/13
--- OUTSIDE RECORDS SUMMARY | 2025-02-23 07:40 | XMS_ITS | Clinical Summary ---
Author Organization 175 [facility] Address [address] [place] [address] Phone Care Team Providers Care Human Services Supervisor Name Role Phone Mario Palmer DO Primary Care Provider [phone] Allergies No known active allergies Active Problems [...] topic Insurance MEDICAID - [place] Care Teams Human Services Supervisor Relationship Specialty Start Date End Date Mario Palmer DO [address] [facility] [address] [place] [address] PCP - General Family Medicine 04/27/24
--- OUTSIDE RECORDS SUMMARY | 2025-02-23 07:40 | XMS_ITS | Patient Health Record ---
Author Organization [facility] Address [address] [facility] [place] [address] Care Team Providers Care Barrel Rib Matting Machine Operator Name Role Phone Cruz Lay Primary Care Provider Unavailab Austin Woo Unavailable [phone] Allergies Allergen (clinical drug ingredient) Drug/Non Drug [...] Problem Acquired hammer toe of right foot (1909332818923801 ) Other hammer toe(s) (acquired), right foot (M20.41) Active confirmed Problem Acquired hammer toe of left foot (5909808603838317 ) Other hammer toe(s) (acquired), left foot (M20.42) Active confirmed Problem Polyneuropathy due to type 2 diabetes mellitus (726762493) Type 2 diabetes mellitus with diabetic polyneuropathy (E11.42) Active confirmed Problem Plantar fasciitis of left foot (1626149999837143 1) Plantar fasciitis of left foot (M72.2) Active confirmed Problem Interstitial myositis (61211059) 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) Active confirmed Vital Signs Heart Rate 80 /min 11/05/2024 Blood pressure diastolic 99 mm Hg 11/05/2024 Height 5ft 9in in 11/05/2024 Blood pressure systolic 146 mm Hg 11/05/2024 Weight 308 lbs 11/05/2024 BMI 45.48 kg/m2 11/05/2024 Procedures Procedure Date Ordered Date Performed Result Body Sit e 15265-HFEWIWP NAIL, 1-5 05/13/2024 N/A 03330-JVVN SKIN LESIONS, OVER 4 05/13/2024 N/A X1174-AIFDRUOJ DYSTROPHIC NAILS ANY # 05/13/2024 N/A Encounters Encounter Location Date Provider Diagnosis [address] [address] 05/13/2024 Austin Munguia Type 2 diabetes mellitus with diabetic polyneuropathy E11.42 ; Other hammer toe(s) (acquired), right foot M20.41 ; Other hammer toe(s) (acquired), left foot M20.42 and Onychomycosis B35.[address] [address] 11/05/2024 Austin Munguia Pain in left foot M79.672 ; Plantar fasciitis of left foot M72.2 ; Calcaneal spur, left foot M77.32 ; Interstitial myositis of left foot M60.172 and Bursitis of left foot M77.[address] [address] 11/05/2024 Austin Munguia Assessments Encounter Date Diagnosis [...] X ray : Foot, left 3V 11/05/2024 58500-ISLDHEN NAIL, 1-5 05/13/2024 33591-OJJV SKIN LESIONS, OVER 4 05/13/20 24 J3293-PGBKHEKP DYSTROPHIC NAILS ANY # Next Appt Details Provider Name:Austin Munguia , 05/13/2025 08:30:00 AM, [address] [facility], [address], [place], [address], Insurance Providers Payer Name Payer Address Payer Phone Subscriber Number Group Number Insured Name Patient Relationship to Insured Coverage Start Date Coverage End Date [facility] CCA SCO Claims [address] [place] [phone] [id number] Chucky Abarca Self - patient is the [...]
--- OUTSIDE RECORDS SUMMARY | 2025-02-23 07:41 | XMS_ITS | Clinical Summary ---
Author Organization [facility] Address [address] [address] Phone Care Team Providers Care Digital Media Intern Name Role Phone Cruz aLy Primary Care Provider + Allergies Active Allergy [...] MEDICARE REPLACEMENT MEDICARE PART A & B [facility] ONE CARE MEDICARE REPLACEMENT Member Subscriber Plan / Payer (Ef fective 2016-Present) Name:Chucky Abarca Relation to Subscriber:Self Name:Chucky Abarca Payer ID:[id number] ([facility]) Group ID:[id number] Type:Medicare Address: [address] [facility] MEDICARE PART A & B [facility] ONE CARE MEDICARE REPLACEMENT MEDICARE PART A & B [facility] CARE MEDICARE REPLACEMENT MEDICARE PART A & B [facility] ONE CARE MEDICARE REPLACEMENT Care Teams Digital Media Intern Relationship Specialty Start Date End Date Cruz Lay PA [address] [place] [address] PCP - General Physician Drafter Tool Design 01/02/23 Additional Source Comments The information contained in this document represents components of the legal health record. It is not the complete legal health record.[facility]
[2025-02-23 11:16] LABS: MANUAL DIFF FLAG NO
[2025-02-23 11:36] LABS: Alanine Aminotransferase 17 U/L (0-40); Albumin Level 4.1 g/dL (3.5-5.0); Alkaline Phosphatase 93 U/L (39-117); Anion Gap 11 (12-20); Aspartate Amino Transferase 37 U/L (5-37); Blood Urea Nitrogen 15 mg/dL (9-16); Calcium 8.8 mg/dL (8.4-10.2); Carbon Dioxide 26 mmol/L (22-29); Chloride 109 mmol/L (96-108); Estimated Glomerular Filt Rate > 60; Potassium 4.1 mmol/L (3.3-5.1); Sodium 142 mmol/L (135-145); Total Protein 7.2 g/dL (6.5-8.0)
[2025-02-23 11:47] LABS: Hematocrit 39.3 % (42.0-52.0); Hemoglobin 13.4 g/dl (14.0-18.0); Imm Gran Abs Auto 0.03 X10*3/uL (0.00-0.03); Imm Gran Pct Auto 0.4 % (0.0-0.4); Lymphocytes Absolute Auto 2.0 X10*3/uL (1.2-4.9); Mean Corpuscular HGB Conc 34.1 g/dl (31.0-36.0); Mean Corpuscular Hemoglobin 29.3 pg (27.0-33.0); Mean Corpuscular Volume 86.0 fL (80.0-98.0); Microalbum/Creatinine Ratio Ur 25.1 ug/mg cr (<30); NRBC Abs Auto 0.000 X10*3/uL (0.0-0.012); NRBC Pct Auto 0.0 /100WBC (0.0-0.2); Platelet Count 316 X10*3/uL (160-400); Red Blood Count 4.57 X10*6/uL (4.60-5.80); White Blood Count 7.6 X10*3/uL (4.8-10.8)
[2025-02-23 12:30] LABS: Erythrocyte Sedimentation Rate 16 MM/HR (0-15)
[2025-02-23 12:32] LABS: HBS Num1 0.30 mIU/mL (0-7.99); HBc Num1 0.12 S/CO (0.00-0.79); HBsAGNum1 0.29 S/CO (0.00-0.99); Hepatitis A Antibody IgM 0.14 Index (0-0.79); Hepatitis B Surface Antigen Negative (Negative); ~HepC Num1 0.09 S/CO (0.00-0.79); ~Hepatitis A Antibody IgM Nonreactive (Nonreactive); ~Hepatitis B Surface Antibody NONREACTIVE (Nonreactive); ~Hepatitis C Antibody Nonreactive (Nonreactive)
[2025-02-26 00:19] LABS: TS Negative Control Passed; TS Panel A 0; TS Panel B 0; TS Positive Control Passed; TSpotTB Negative (Negative)
== END 2025-02-23 07:36 | disposition home or self-care (01) ==
LOC: HO.10HDL 07:35
PROVIDERS: Physician Assistant; Visit Provider Student in an Organized Health Care Education/Training Program
DX: Z12.5 Encounter for screening for malignant neoplasm of prostate (principal); Z23 Encounter for immunization; Z00.00 Encounter for general adult medical examination without abnormal findings; L40.50 Arthropathic psoriasis, unspecified; E11.9 Type 2 diabetes mellitus without complications; E78.2 Mixed hyperlipidemia; G47.33 Obstructive sleep apnea (adult) (pediatric); E66.813 Obesity, class 3; I10 Essential (primary) hypertension; Z79.84 Long term (current) use of oral hypoglycemic drugs; Z79.2 Long term (current) use of antibiotics; Z79.899 Other long term (current) drug therapy; Z68.42 Body mass index [BMI] 45.0-49.9, adult
CPT/HCPCS: 36415; 80053; 82043; 82570; 84153; 85025; 85652; 86140; 86481; 86704; 86706; 86709; 86803; 87340; 90471; 90677; 96127; 99396

== ENCOUNTER 2025-02-23 07:45 | Outpatient (AMB) | payer OTHER, SELFPAY ==
[2025-02-23 07:52] VITALS: BP 136/68; PULSE 77; O2SAT 98; BMI 47.0
--- NOTE | 2025-02-23 07:52 | MHC.PC.OV ---
Vital Signs 02/23/25 07:52 Height 5 ft 8 in Weight 309 lb BMI 47.0 BP 136/68 Blood Pressure Location Lt brachial Position Sitting Pulse 77 Pulse Source Pulse Oximeter Pulse Oximetry (%) 98 Oxygen Delivery Method Room Air Intake Visit Reasons: Annual Exam- A1C Allergies Penicillins (PENICILLINS) Allergy (Severe, Verified 02/23/25 08:04) DIFFICULTY BREATHING Fish Containing Products Allergy (Intermediate, Verified 02/23/25 08:04) swollen Medication List - Last Reconciled 02/23/25 by Cruz Lay PA-C acetaminophen ER (Tylenol Arthritis Pain) 650 mg PO Q12H 90 days atorvastatin 20 mg PO DAILY 90 days bisacodyl (Dulcolax (bisacodyl)) 20 mg (4 x 5 mg) PO ONCE 1 day blood pressure test kit-large As directed blood pressure test kit-wrist As directed blood sugar diagnostic (FreeStyle Lite Strips) As directed blood-glucose meter (FreeStyle Lite Meter kit) As directed bupropion HCl SR 100 mg PO QAM cholecalciferol (vitamin D3) 25 mcg PO DAILY 90 days [diabetic shoes As directed] Enbrel SureClick (etanercept) 50 mg subcut QWEEK NS folic acid 1 mg PO DAILY ibuprofen 600 mg PO Q8H PRN lancets (FreeStyle Lancets) As directed losartan 50 mg PO DAILY metformin 1,000 mg (2 x 500 mg) PO BID 90 days methotrexate sodium 15 mg (6 x 2.5 mg) PO QWEEK 90 days miscellaneous medical supply 1 ea miscellaneous DAILY 99 days tkiujhdjrhgf-dwzymcxe-mtehem (Multivitamin 50 Plus tablet) 1 tab PO DAILY omeprazole 40 mg PO DAILY polyethylene glycol 3350 (Miralax) 238 grams PO ONCE tirzepatide (weight loss) (Zepbound) 5 mg (0.5 mL) subcut QWEEK 4 weeks tramadol 50 mg PO Q6H PRN 7 days Tobacco use date assessed: 01/12/25 Dental Screening Dental Screen Date: 01/12/25 HPI Annual Exam- A1C HPI Details Chucky is a 59 year male here today for routine annual physical. ? Patient has past medical history significant for hypertension, depression, type 2 diabetes, YARIEL, anxiety, history of cocaine abuse, psoriatic arthritis. Class 3 Obesity: Has been able to lose 6 lb since last office visit. He continues on Zepbound and feels it is effective for him. He denies any side effects. He would like to up titrate dose for more weight loss. He is a goal of being below 300 lb ? .. ?? ? Depression/ anxiety:? Patient is followed by psychiatrist( [facility]) who prescribes his mental health medications.? He has been feeling well from a mental health point of view .? He continues to work with his mental health therapist and a psychiatrist on his depression. .. Obstructive sleep apnea: He now has a new CPAP machine in his sleeping well with nightly use of his CPAP machine. s. ? .. ? Diabetes: Most recent A1c is 6.5. Has been compliant with metformin a 1000 mg b.i.d. he does report an episode of having a blood sugar of 300 though unclear if this is around the time he got a cortisone injection in his hip. PLAN: Will increase his Zepbound to 7.5 mg weekly, plan on reducing his metformin as he gains better glycemic control and loses weight ? .. ? HTN:? Doesnt check his BP at home, blood pressure today in office acceptable.? Patient denies any chest discomfort, headaches or shortness of breath. Psoriatic arthritis:? He continues to follow Rheumatology. 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 Continues on injections of Embrel and weekly methotrexate.? .. Hypothyroidism:? Most recent TSH acceptable.? He has not been taking levothyroxine. Will continue to hold levothyroxine and check TSH to assure stable.. Colonoscopy: Followed by [facility], has upcoming colonoscopy . Vaccine: Up-to-date with tetanus, needs new pneumonia vaccine. Has gotten COVID vaccine. [facility] Medical History Long-term use of immunosuppressant medication Screening examination for infectious disease Psoriatic arthritis COVID-19 Skin lesion Type 2 diabetes mellitus Vitamin D deficiency Psoriasis Hypercholesterolemia Bipolar disorder Depression Rheumatoid arthritis LENNOX (generalized anxiety disorder) HTN (hypertension) DMII (diabetes mellitus, type 2) Surgical History Total knee replacement status H/O knee surgery History of sleeve gastrectomy History of right shoulder replacement H/O arthroscopy of knee History of colonoscopy Family History Father Diabetes Dialysis patient Mother Hypertension Heart problem Social History Housing: House Alcohol intake: never Patient Tobacco Use Status: Never used Tobacco Tobacco use type: Cigarette e-Cigarette/Vaping Use: Never Used Second Hand Smoke Exposure: No service: No Current occupational status: unemployed Cognitive needs: No Hearing needs: No Vision needs: Yes Questionnaire PHQ-9 Over the last 2 weeks, how often have you been bothered by any of the following problems? 1. Little interest or pleasure in doing things: not at all 2. Feeling down, depressed, or hopeless: not at all 3. Trouble falling or staying asleep, or sleeping too much: not at all 4. Feeling tired or having little energy: not at all 5. Poor appetite or overeating: not at all 6. Feeling bad about yourself - or that you are a failure or have let yourself or your family down: not at all 7. Trouble concentrating on things, such as reading the newspaper or watching television: not at all 8. Moving or speaking so slowly that other people could have noticed. Or the opposite - being so fidgety or restless that you have been moving around a lot more than usual: not at all 9. Thoughts that you would be better off or of hurting yourself in some way: not at all Total score: 0 Depression Screening Interpretation: Negative Depression Screening Done: Yes 19052 - PHQ-9 Billing: Yes Source: Developed by Drs. Geovany Xie, Andree Anthony, Kodak Handley and colleagues, with an educational jackelyn from [employer]. Thrive Questionnaire Date Thrive assessed: 09/30/24 I am a: Patient What is your living situation today?: I have a steady place to live Within the past 12 months, did the food you bought not last and you didn't have the money to get more?: Never true Within the past 12 months, did you worry whether your food would run out before you got money to buy more?: Never true Do you have trouble paying for medicines?: No Do you have trouble getting transportation to medical appointments?: No Do you have trouble paying your heating and electricity bill?: I choose not to answer this question Do you have trouble taking care of your child, family member or friend?: No Do you have trouble with day-to-day activities such as bathing, preparing meals, shopping, managing finances, etc.?: I choose not to answer this question Are you currently unemployed and looking for a job?: I choose not to answer this question Are you interested in more education?: I choose not to answer this question Please select the resources that you would like help with: None Currently or been in a relationship where the following occur: I choose not to answer THRIVE Score: 0 AUDIT C Alcohol Use Questionnaire (AUDIT-C) 1. How often do you have a drink containing alcohol?: Never 3. How often do you have six or more drinks on one occasion?: Never Total Score: 0 LENNOX-7 AMB Questionnaire LENNOX-7 Date LENNOX - 7 assessed: 09/30/24 Source: Developed by Drs. Geovany Xie, Andree Anthony, Kodak Handley and colleagues, with an educational jackelyn from [employer]. Review of Systems Const Denies body aches, Denies chills, Denies excessive sweating, Denies fatigue, Denies fever(s) and Denies headache(s) Eyes Denies blurry vision ENT Denies dysphagia, Denies vertigo, Denies dizziness, Denies headache(s), Denies hearing loss and Denies tinnitus Card Denies chest pain, Denies chest pain with activity, Denies syncope, Denies irregular heart rhythm and Denies dyspnea Resp Denies chest congestion, Denies cough, Denies hemoptysis, Denies dyspnea and Denies wheezing GI Denies abdominal pain, Denies melena, Denies hematochezia, Denies coffee ground emesis, Denies dysphagia, Denies diarrhea, Denies nausea and Denies vomiting Denies difficulty urinating, Denies dysuria, Denies urinary frequency, Denies urinary hesitancy and Denies urinary urgency Musc Denies arthralgias, Denies limited range of motion, Denies muscle cramps and Denies muscle weakness Skin/Breast Denies rash and Denies skin ulcer Neuro Denies Abnormal speech present, Denies confusion, Denies vertigo, Denies dizziness, Denies syncope, Denies headache(s), Denies memory loss and Denies seizure-like activity Psych Denies anxiety, Denies confusion, Denies depression, Denies memory loss, Denies panic attacks and Denies paranoia Endo Denies excessive sweating, Denies fatigue, Denies flushing, Denies polydipsia and Denies polyuria Aller/Immun Denies wheezing Physical exam (Primary Care) Vital Signs: Last Vital Signs Pulse 77 02/23/25 07:52 BP 136/68 02/23/25 07:52 Pulse Ox 98 02/23/25 07:52 Oxygen Delivery Method Room Air 02/23/25 07:52 BMI result Body Mass Index 47.0 BMI Assessment/Plan discussion: High BMI High, discussed plan: lifestyle, weight reduction, dietary and physical activity Tobacco/Smoking Status: Tobacco use Status Tobacco use date assessed 01/12/25 02/23/25 07:54 Patient Tobacco Use Status Never used Tobacco 02/23/25 07:54 Tobacco use type Cigarette 02/23/25 07:54 e-Cigarette/Vaping Use Never Used 02/23/25 07:54 PHQ-9: PHQ-9 Score PHQ-9: Total score 0 02/23/25 08:28 Depression Screening Interpretation: Negative Thrive Assessment: Date of Thrive Assessment Date Thrive assessed 09/30/24 02/23/25 07:54 Currently or been in a relationship where the following occur: I choose not to answer Const General: cooperative, comfortable, no acute distress, alert and awake; No confusion Orientation/consciousness: oriented to person, oriented to place, patient oriented x3 and No confusion HENMT Head: Yes normocephalic Ears: external ears normal and TM's normal bilaterally Face and sinus: No sinus tenderness Mouth: Normal oral and palatal mucosa present and tongue normal Teeth and gingiva: dentition normal and gingiva normal Throat: Yes posterior oropharynx normal, Yes tonsils normal and Yes uvula midline Eyes Conjunctivae: conjunctivae normal Sclerae: sclerae normal Pupils: Equal, round and reactive pupils present EOM: EOMs intact bilaterally Direct Ophthalmoscopy: No no photophobia Neck Neck: Yes no lymphadenopathy, No tender and Yes no JVD Thyroid: Thyroid normal Carotids: no bruits Chest Chest palpation & inspection: no tenderness Resp Effort & Inspection: normal respiratory effort, no audible wheezes, not labored and no stridor Auscultation: no crackles, no rales, no rhonchi and no wheezes Cardio Jugular venous distension: no JVD Rate: regular rate, not bradycardic and not tachycardic Rhythm: regular rhythm Bruits: no carotid bruits Peripheral pulses: Peripheral pulses 2+ throughout GI Inspection: Yes normal to inspection, No abdominal wall ecchymosis and No visible herniation Palpation (GI): Soft to palpation, nontender, no guarding, not rigid and No hepatosplenomegaly present Auscultation: normoactive bowel sounds General: Yes no CVA tenderness Back/Spine/Pelvis Back: no CVA tenderness and No back tenderness Cervical Spine: cervical ROM normal Thoracic/Lumbar Spine: thoracic and lumbar spine normal to inspection, straight leg raise negative bilaterally, No thoraco-lumbar ROM limited and No lumbar spinal tenderness Skin Lesions: no lesions Rashes: no rashes Wounds: no wounds Neuro General: oriented to person, oriented to place, patient oriented x3, CN's II-XI intact bilaterally and No confusion Cranial nerves: Yes Equal, round and reactive pupils present and Yes Normal accommodation reflex present Cognition (Neuro): normal cognition Speech: No Abnormal speech present Gait exam (Neuro): Normal gait present Motor exam (neuro): 5/5 motor strength present throughout Extrem Right upper extremity: full ROM; no cyanosis Left upper extremity: full ROM; no cyanosis Right lower extremity: no edema Left lower extremity: no edema Psych Appearance: grossly normal Mental Status: mental status grossly normal Affect: normal affect Attitude: cooperative Thought process: Normal thought process present Immunizations pneumoc 20-emeka conj-dip cr(PF) 0.5 mL IM syringe Performing Provider: Cruz Lay PA-C [facility] Administered by: Nati Lee CMA on 02/23/25 08:28 Dose Route Admin Location Dispensed Lot Number Expiration Date [facility] Drill Foreman 0.5 mL IM Left Deltoid 0.5 mL [id number] 01/25/26 [id number] Done In :60 Seconds/[employer] Total Dispensed Waste 0.5 mL 0 % VIS Given Date VIS Provided VIS Publication Date 02/23/25 Single Vaccine 24 Eligibility Eligibility Date Funding Source Not [facility] Eligible 02/23/25 Private Coding Level of Care Code Est Pt [facility] [place] [facility] [place] [facility] 40-64y([id number]) Diagnoses Annual physical exam Z00.00 YARIEL (obstructive sleep apnea) G47.33 Type 2 diabetes mellitus without complication, without long-term current use of insulin E11.9 Diabetes mellitus complication status: without complication Diabetes mellitus intermediate insulin use: without termite control service representative use Mixed hyperlipidemia E78.2 Hyperlipidemia type: mixed hyperlipidemia Class 3 obesity E66.813 Primary hypertension I10 Hypertension type: primary hypertension Additional Codes PHQ-9 - 28901 - PHQ-9 Billing: Yes ([id number]) Assessment & Plan Assessment & Plan (1) Annual physical exam: Code(s): Z00.00 - Encounter for general adult medical examination without abnormal findings Category: Medical Plan: as per HPI (2) YARIEL (obstructive sleep apnea): Code(s): G47.33 - Obstructive sleep apnea (adult) (pediatric) Category: Medical Plan: Continues to use CPAP machine on a nightly basis with good effect. Recently got a new machine in his happy with it. (3) DMII (diabetes mellitus, type 2): Code(s): E11.9 - Type 2 diabetes mellitus without complications Category: Medical Qualifiers: Diabetes mellitus complication status: without complication Diabetes mellitus intermediate insulin use: without termite control service representative use Qualified Code(s): E11.9 - Type 2 diabetes mellitus without complications Plan: Patient's type 2 diabetes well controlled with current med regime. We have transitioned to an alternative GLP 1 (zepbound). Most recent A1c is 6.5. We have transitioned to Zepbound which has been fairly effective for him. Has lost 6 lb since last office visit . Goal A1c is to be below 7.0 (4) HLD (hyperlipidemia): Code(s): E78.5 - Hyperlipidemia, unspecified Category: Medical Qualifiers: Hyperlipidemia type: mixed hyperlipidemia Qualified Code(s): E78.2 - Mixed hyperlipidemia Plan: Patient's most recent lipid panel showing excellent control of his total cholesterol and LDL. Will continue his current dose of statin therapy with goal LDL to remain below 100 (5) Class 3 obesity: Code(s): E66.813 - Obesity, class 3 Category: Medical Plan: Patient does understand his BMI is above 40 and will work on trying to be more physically active and adapting to better eating habits to reduce his weight. Will continue up titrate GLP 1 to help with appetite suppression and weight loss. (6) HTN (hypertension): Code(s): I10 - Essential (primary) hypertension Category: Medical Qualifiers: Hypertension type: primary hypertension Qualified Code(s): I10 - Essential (primary) hypertension Plan: Patient's blood pressure acceptable today in office. Will continue his current dose of antihypertensive medications with goal blood pressure to remain below 140/90 Orders: Orders Pneumococcal 20 Immunization Today G47.33 - Obstructive sleep apnea (adult) (pediatric), Z23 - Encounter for immunization Medications: New tirzepatide (weight loss) (Zepbound) 7.5 mg (0.5 mL) subcut QWEEK 2 mL 1RF 4 weeks G47.33 - Obstructive sleep apnea (adult) (pediatric) On Hold tirzepatide (weight loss) (Zepbound) Hold Comment: Doctor's Order 5 mg (0.5 mL) subcut QWEEK 4 weeks 2 mL 1RF E11.9 - Type 2 diabetes mellitus without complications, E66.813 - Obesity, class 3, G47.33 - Obstructive sleep apnea (adult) (pediatric)
== END 2025-02-23 08:33 | disposition home or self-care (01) ==
LOC: HO.HMCH 07:46
PROVIDERS: PCP Physician Assistant; Visit Provider Physician Assistant
DX: Z00.00 Encounter for general adult medical examination without abnormal findings (principal); E11.69 Type 2 diabetes mellitus with other specified complication; E66.813 Obesity, class 3; Z68.42 Body mass index [BMI] 45.0-49.9, adult; G47.33 Obstructive sleep apnea (adult) (pediatric); E78.2 Mixed hyperlipidemia; I10 Essential (primary) hypertension; Z23 Encounter for immunization

== ENCOUNTER 2025-04-15 06:55 | Day surgery (SDC) | payer OTHER, SELFPAY ==
--- OUTSIDE RECORDS SUMMARY | 2025-02-22 12:28 | XMS_ITS | Clinical Summary ---
Author Organization [facility] Address [address] [place] [address] Care Team Providers Care Chemical Research Technician Name Role Phone Sarah Gaspar LIZ Primary Care Provider [phone] Source Comments PLEASE NOTE, if this patient [...] TEST) stripsIndication s:DM2 (diabetes mellitus, type 2) ([facility]) as needed for high blood sugar. 100 Each 3 3 Active lancetsIndicatio ns:DM2 (diabetes mellitus, type 2) ([facility]) TID 100 Each 3 3 Active [...] s:DM2 (diabetes mellitus, type 2) ([facility]) Take 1 Tab by mouth 2 [...] mg tabletIndication s:DM2 (diabetes mellitus, type 2) ([facility]) Take 1 Tab by mouth once [...] (gastroesophageal reflux disease) 4 Bipolar 2 disorder ([facility]) 06/23/2013 Diabetes ([facility]) 03/24/2013 Osteoarthritis 03/24/2013 Psoriatic arthritis ([facility]) 03/24/2013 Overview (03/24/2013): Hands, elbow, feet, [...] Plan of Treatment Not on file Insurance [facility] [employer] Member Subscriber Plan / Payer (Ef fective 2013-Present) Name:Chucky Abarca Relation to Subscriber:Self Name:Chucky Abarca Payer ID:[id number] Group ID:[id number] Type:Medicaid Address: [facility] [address] [place] [address] Care Teams Chemical Research Technician Relationship Specialty Start Date End Date Sarah Gaspar NP [phone] [place] [address] PCP - General Internal Medicine 03/24/13
--- OUTSIDE RECORDS SUMMARY | 2025-02-22 12:28 | XMS_ITS | Patient Health Record ---
Author Organization [facility] Address [address] [place] [address] Care Team Providers Care Gas Examiner Name Role Phone Cruz Lay Primary Care Provider Unavailab Austin Woo Unavailable [phone] Allergies Allergen (clinical drug ingredient) Drug/Non Drug [...] Problem Acquired hammer toe of right foot (9184807111013758 ) Other hammer toe(s) (acquired), right foot (M20.41) Active confirmed Problem Acquired hammer toe of left foot (7926797739834876 ) Other hammer toe(s) (acquired), left foot (M20.42) Active confirmed Problem Polyneuropathy due to type 2 diabetes mellitus (338779824) Type 2 diabetes mellitus with diabetic polyneuropathy (E11.42) Active confirmed Problem Plantar fasciitis of left foot (6015485543778455 1) Plantar fasciitis of left foot (M72.2) Active confirmed Problem Interstitial myositis (79328874) 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) Active confirmed Vital Signs Heart Rate 80 /min 11/05/2024 Blood pressure diastolic 99 mm Hg 11/05/2024 Height 5ft 9in in 11/05/2024 Blood pressure systolic 146 mm Hg 11/05/2024 Weight 308 lbs 11/05/2024 BMI 45.48 kg/m2 11/05/2024 Procedures Procedure Date Ordered Date Performed Result Body Sit e 33293-DAJRJND NAIL, 1-5 05/13/2024 N/A 77449-MMRG SKIN LESIONS, OVER 4 05/13/2024 N/A G9712-EMVEUBGH DYSTROPHIC NAILS ANY # 05/13/2024 N/A Encounters Encounter Location Date Provider Diagnosis [address] [address] 05/13/2024 Austin Munguia Type 2 diabetes mellitus with diabetic polyneuropathy E11.42 ; Other hammer toe(s) (acquired), right foot M20.41 ; Other hammer toe(s) (acquired), left foot M20.42 and Onychomycosis B35.[address] [address] 11/05/2024 Austin Munguia Pain in left foot M79.672 ; Plantar fasciitis of left foot M72.2 ; Calcaneal spur, left foot M77.32 ; Interstitial myositis of left foot M60.172 and Bursitis of left foot M77.[address] [address] 11/05/2024 Austin Munguia Assessments Encounter Date Diagnosis [...] X ray : Foot, left 3V 11/05/2024 80718-LLXXIHY NAIL, 1-5 05/13/2024 79411-SXBM SKIN LESIONS, OVER 4 05/13/20 24 L4334-VFBZNIMS DYSTROPHIC NAILS ANY # Next Appt Details Provider Name:Austin Munguia , 05/13/2025 08:30:00 AM, [address] [facility], [address], [place], [address], Insurance Providers Payer Name Payer Address Payer Phone Subscriber Number Group Number Insured Name Patient Relationship to Insured Coverage Start Date Coverage End Date [facility] CCA SCO Claims [address] [place] [phone] [id number] Chucky Abarca Self - patient is the [...]
--- OUTSIDE RECORDS SUMMARY | 2025-02-22 12:28 | XMS_ITS | Clinical Summary ---
Author Organization [facility] Address [address] [address] Phone Care Team Providers Care Director Of Optimization Name Role Phone Cruz Lay Primary Care [...] MEDICARE REPLACEMENT MEDICARE PART A & B [facility] ONE CARE MEDICARE REPLACEMENT Member Subscriber Plan / Payer (Ef fective 2016-Present) Name:Chucky Abarca Relation to Subscriber:Self Name:Chucky Abarca Payer ID:[id number] ([facility]) Group ID:[id number] Type:Medicare Address: [address] [facility] MEDICARE PART A & B [facility] ONE CARE MEDICARE REPLACEMENT MEDICARE PART A & B [facility] CARE MEDICARE REPLACEMENT MEDICARE PART A & B [facility] ONE CARE MEDICARE REPLACEMENT Care Teams Director Of Optimization Relationship Specialty Start Date End Date Cruz Lay PA [address] [place] [address] PCP - General Physician Deflector Operator 01/02/23 Additional Source Comments The information contained in this document represents components of the legal health record. It is not the complete legal health record.[facility]
--- OUTSIDE RECORDS SUMMARY | 2025-02-22 12:28 | XMS_ITS | Clinical Summary ---
Author Organization [facility] Address [address] [place] [address] Phone Care Team Providers Care Installment Account Checker Name Role Phone Mario Palmer DO Primary Care Provider [phone] Allergies No known active allergies Active Problems [...] topic Insurance MEDICAID - [place] Care Teams Installment Account Checker Relationship Specialty Start Date End Date Mario Palmer DO [address] [facility] [address] [place] [address] PCP - General Family Medicine 04/27/24
[2025-03-02 14:07] VITALS: BMI 47.9
--- NOTE | 2025-04-12 14:21 | HO.ANESPROP2 ---
Documented by User: Yajaira Chilel NP 04/12/25 14:24 HPI - Anesthesia Eval Consult details Narrative: 59yo M for Upper Endoscopy and Colonoscopy BMI 47.9 Anesthesia Pre-Procedure Meds Is the patient on any of the following meds?: GLP1/DPP4 PMFSH Active Problems Active Problems: All Active Problems YARIEL (obstructive sleep apnea) (Acute) Class 3 obesity (Acute) Colon cancer screening (Acute) History of sleeve gastrectomy (Acute) Trigger finger (Acute) Osteoarthritis of thumbs, bilateral (Acute) Keratosis (Acute) HLD (hyperlipidemia) (Acute) Long-term use of immunosuppressant medication (Acute) Screening examination for infectious disease (Acute) Psoriatic arthritis (Acute) Osteoarthritis of left knee (Acute) Fatigue (Acute) Neuropathy (Acute) Skin lesion (Acute) Tendinopathy of left shoulder (Acute) Skin tag (Acute) Depression (Acute) Neck pain (Acute) Psoriasis (Acute) HTN (hypertension) (Acute) DMII (diabetes mellitus, type 2) (Acute) Morbid obesity with BMI of 45.0-49.9, adult (Acute) Annual physical exam (Acute) Pre-op examination (Acute) Morbid (severe) obesity due to excess calories (Acute) SOB (shortness of breath) (Acute) Past Medical History Medical History Long-term use of immunosuppressant medication Screening examination for infectious disease Psoriatic arthritis COVID-19 Skin lesion Type 2 diabetes mellitus Vitamin D deficiency Psoriasis Hypercholesterolemia Bipolar disorder Depression Rheumatoid arthritis LENNOX (generalized anxiety disorder) HTN (hypertension) DMII (diabetes mellitus, type 2) Family History Family History Father Diabetes Dialysis patient Mother Hypertension Heart problem Surgical History Surgical History Total knee replacement status H/O knee surgery History of sleeve gastrectomy History of right shoulder replacement H/O arthroscopy of knee History of colonoscopy Social History Social History Housing: House Alcohol intake: never Patient Tobacco Use Status: Never used Tobacco Tobacco use type: Cigarette e-Cigarette/Vaping Use: Never Used Second Hand Smoke Exposure: No Use of substances other than those prescribed or required for medical reasons: No Are you DNR?: No Advance Directives: No Advance Directives Information Provided: Yes service: No Current occupational status: unemployed Cognitive needs: No Hearing needs: No Vision needs: Yes Meds Allergies Allergy/AdvReac Type Severity Reaction Status Date / Time Penicillins (PENICILLINS) Allergy Severe DIFFICULTY Verified 02/23/25 08:04 BREATHING Fish Containing Products Allergy Intermediate swollen Verified 02/23/25 08:04 Home Medications ?Medication ?Instructions ?Recorded ?Confirmed ?Last Taken ?Type bupropion HCl 100 mg tablet,12 hr 100 mg PO QAM 06/27/20 02/23/25 Unknown History sustained-release ibuprofen 600 mg tablet 600 mg PO Q8H PRN Pain (Scale 08/02/20 02/23/25 04/10/25 History Score 4-6) ssnsubcumejd-bbnwmorv-vftmpn 1 tab PO DAILY 08/02/20 02/23/25 Unknown History tablet (Multivitamin 50 Plus tablet) Exam Height,Weight and Vital Signs: Height 5 ft 8 in Weight 142.882 kg Assessment and Plan Assessment Anesthesia Assessment: Chart Reviewed Documented by User: Rell Logan MD 04/15/25 09:04 HPI - Anesthesia Eval Anesthesia Pre-Procedure Meds If yes to any meds - educate patient: Pt education - increased risk of aspiration and/or euvolemic DKA [facility] Past Medical History Medical History Long-term use of immunosuppressant medication Screening examination for infectious disease Psoriatic arthritis COVID-19 Skin lesion Type 2 diabetes mellitus Vitamin D deficiency Psoriasis Hypercholesterolemia Bipolar disorder Depression Rheumatoid arthritis LENNOX (generalized anxiety disorder) HTN (hypertension) DMII (diabetes mellitus, type 2) Functional capacity: independent ambulation Family History Family History Father Diabetes Dialysis patient Mother Hypertension Heart problem Family history of problems with anesthesia: No Surgical History Surgical History Total knee replacement status H/O knee surgery History of sleeve gastrectomy History of right shoulder replacement H/O arthroscopy of knee History of colonoscopy History of Problems with Anesthesia: No Social History Social History Housing: House Alcohol intake: never Patient Tobacco Use Status: Never used Tobacco Tobacco use type: Cigarette e-Cigarette/Vaping Use: Never Used Second Hand Smoke Exposure: No Use of substances other than those prescribed or required for medical reasons: No Are you DNR?: No Advance Directives: No Advance Directives Information Provided: Yes service: No Current occupational status: unemployed Cognitive needs: No Hearing needs: No Vision needs: Yes Meds Allergies Allergy/AdvReac Type Severity Reaction Status Date / Time Penicillins (PENICILLINS) Allergy Severe DIFFICULTY Verified 02/23/25 08:04 BREATHING Fish Containing Products Allergy Intermediate swollen Verified 02/23/25 08:04 Home Medications ?Medication ?Instructions ?Recorded ?Confirmed ?Last Taken ?Type bupropion HCl 100 mg tablet,12 hr 100 mg PO QAM 06/27/20 02/23/25 Unknown History sustained-release ibuprofen 600 mg tablet 600 mg PO Q8H PRN Pain (Scale 08/02/20 02/23/25 04/10/25 History Score 4-6) [id number]-kfmjaswz-cvgvkz 1 tab PO DAILY 08/02/20 02/23/25 Unknown History tablet (Multivitamin 50 Plus tablet) Exam Exam Date and Time: 04/15/2025 Airway Mallampati Class: II TM Dist: >3cm Neck ROM: Full Heart: normal Lungs: normal Other: normal Assessment and Plan Assessment Anesthesia Assessment: Anesthesia Plan Discussed Final Anesthetic Review Family History of Problems with Anesthesia: No History of Problems with Anesthesia: No NPO: Yes ASA Class: II Final Preanesthetic Review: No Changes in Pt Med Stat, Meds/Allgs Chart Reviewed, Consent Obtained/Reviewed and Anes Risks/Benef Reviewed Patient Risk: Intermediate Procedure Risk: Low Anesthetic Plan Anesthetic Plan: MAC: Disposition: Standard PACU
[2025-04-15 08:02] VITALS: BMI 47.1
[2025-04-15 08:14] VITALS: BP 142/89; PULSE 70; RESP 16; TEMP 36; O2SAT 95
[2025-04-15] MEDS: Lactated Ringers 1,000 ML 100 ML IVCONT (08:34)
[2025-04-15 08:41] LABS: Glucose, Whole Blood 113 mg/dL (60-115)
--- NOTE | 2025-04-15 09:12 | MHC.SHP ---
Pre-Procedural Eval Section A - 24 Hr Update-Section A only Date of Service: 04/15/25 Section B - Complete if H&P > 30 days Chief Complaint: screening,gerd Details of Present Illness: Long-term use of immunosuppressant medication Screening examination for infectious disease Psoriatic arthritis COVID-19 Skin lesion Type 2 diabetes mellitus Vitamin D deficiency Psoriasis Hypercholesterolemia Bipolar disorder Depression Rheumatoid arthritis LENNOX (generalized anxiety disorder) HTN (hypertension) DMII (diabetes mellitus, type 2) Surgical History Total knee replacement status H/O knee surgery History of sleeve gastrectomy History of right shoulder replacement H/O arthroscopy of knee History of colonoscopy Present Medications: see Short Stay Collaborative assessment Allergies: Allergies Allergy/AdvReac Type Severity Reaction Status Date / Time Penicillins (PENICILLINS) Allergy Severe DIFFICULTY Verified 02/23/25 08:04 BREATHING Fish Containing Products Allergy Intermediate swollen Verified 02/23/25 08:04 Review of Systems Review of Systems Comment: Ten point ROS negative Exam Exam Comment: Gen appear: No acute distress HEENT: no icterus Chest: No overt resp distress Abd: soft, nontender, nondistended Psych: Stable affect, answering questions appropriately Neuro: A/Ox3 noted to move all extremities spontaneously Ext: no peripheral edema Plan Diagnosis/Plan: Unchanged I have reviewed the history and physical and performed a pertinent physical examination on my patient. No changes have occurred unless specified. Time Spent With Patient Time: Total time managing care of this patient today ____ minutes.
--- NOTE | 2025-04-15 09:59 | P.OPN-COLO_ITS ---
Colonoscopy Operative Note Operative Note Date of Service: 04/15/25 Narrative: Procedure: Upper endoscopy and colonoscopy Indication: GERD, screening Endoscopist: Za Corado MD Anesthesia Provider: Dr Logan Anesthesia type: MAC Instrument: [id number] and [id number] EGD Procedure:?? The procedure, indications, preparation and potential complications were reviewed with the patient, who indicated understanding and gave written informed consent to proceed. The endoscope was introduced through the mouth, and advanced to the 2nd part of the duodenum. The mucosa was carefully examined on slow withdrawal of the endoscope. The patient tolerated the procedure well. There were no immediate complications.? EGD Findings:? * Esophagus:? Two erosions measuring < 5 mm were noted just at the GE junction. The Z-line was at 35 cm. Cold forceps biopsies were taken from to rule out BE. * Stomach:? Normal gastric mucosa. Retroflexion was performed in the cardia. * Duodenum:? Normal duodenal mucosa. Colonoscopy Procedure:? The patient was then turned for the colonoscopy. An abdominal binder was placed at the lower abdomen. A digital rectal exam was performed which was abnormal for hemorrhoids.? The colonoscope was inserted through the anus and advanced through the colon and advanced to the cecum at 70 cm and terminal ileum.? Appendiceal orifice and ileocecal valve were identified. Mucosa was carefully examined under high definition white light as the instrument was slowly withdrawn in a retrograde panoramic fashion. Retroflexion was performed in rectum. The procedure was not difficult. The quality of the prep was BBPS: 3+3+2 = adequate Withdrawal time 9 minutes Limitations: No limitations Findings: Mucosa: Normal colon and terminal ileum mucosa. Protruding lesions: * 1 sessile polyp of size 6 mm in transverse colon. Cold snare polypectomy was performed. The polyp was completely removed and retrieved. * Medium internal hemorrhoids without stigmata of recent bleeding. Impression: 1. Grade A esophagitis (biopsy) 2. Normal stomach 3. Normal duodenum 4. Normal colon and terminal ileum mucosa 5. 1 polyp removed 6. Internal and external hemorrhoids Recommendations:?? * Follow-up path results * Avoid NSAIDs * Cont omeprazole daily * Repeat colonoscopy in 7 years if polyp is an adenoma.
[2025-04-15 10:05] VITALS: BP 121/80; PULSE 80; RESP 16; TEMP 36.5; O2SAT 93
[2025-04-15 10:15] VITALS: BP 107/65; PULSE 75; RESP 16; TEMP 36.5; O2SAT 97
== END 2025-04-15 11:02 | disposition home or self-care (01) ==
PROVIDERS: PCP Physician Assistant; Visit Provider Internal Medicine
PROC: (CPT 45385; principal; 2025-04-15 09:00)
DX: Z12.11 Encounter for screening for malignant neoplasm of colon (principal); K21.9 Gastro-esophageal reflux disease without esophagitis; K64.8 Other hemorrhoids; D12.3 Benign neoplasm of transverse colon; K29.70 Gastritis, unspecified, without bleeding
CPT/HCPCS: 45385; 43239; 82947; 88305; 88313; J2003; J2704; J3010

== ENCOUNTER → 2025-04-15 06:55 | Outpatient (BNV) | payer OTHER, SELFPAY | PROVIDERS: PCP Physician Assistant; Visit Provider Internal Medicine | DX: Z12.11 Encounter for screening for malignant neoplasm of colon (principal); K63.5 Polyp of colon; K64.8 Other hemorrhoids; K21.00 Gastro-esophageal reflux disease with esophagitis, without bleeding | CPT/HCPCS: 43239; 45385 ==

== ENCOUNTER 2025-05-18 11:37 | Outpatient (AMB) | payer OTHER, SELFPAY ==
--- OUTSIDE RECORDS SUMMARY | 2025-05-13 03:30 | XMS_ITS ---
Author Organization [facility] Address [address] [place] [address] Care Team Providers Care Scheduler Maintenance Name Role Phone Cruz Lay Primary Care Provider Unavailab Austin Woo Unavailable [phone] Allergies Allergen (clinical drug ingredient) Drug/Non Drug Allergy documented on EMR Reaction Allergy Type Onset Date Status Fish derivative (substance) Fish-derived Products swelling Drug Allergy Active Substance with penicillin structure and antibacterial mechanism of action (substance) Penicillins difficulty breathing Drug Allergy Active REASON FOR VISIT At Risk Footcare, Toe Irritation, Heel pain Medications Medication SIG (Take, Route, Frequency, Duration) Notes Start Date End Date Status Omeprazole 40 MG 1 capsule 30 minutes before morning meal Orally Once a day Active Losartan Potassium 50 MG 1 tablet Orally Once a day Active buPROPion HCl 100 MG 1 tablet Orally Twi ce a day Active hydrOXYzine HCl 25 MG 1 tablet as needed Orally Once a day Active Night Splint AFO - L1930 1 wear at rest; Duration: 30 days Active Multivitamin Adults 50+ Active Ozempic (1 MG/DOSE) Not-Taking Methotrexate Sodium 2.5 MG as directed Orally Active metFORMIN HCl 500 MG 1 tablet with a krystal l Orally Once a day Active Ibuprofen 600 MG 1 tablet with food o r milk as needed Orally Three times a day Active Extra Depth Orthopedic Shoes (1 Pair) with Customized Heat Molded Multidensity Innersoles (3 Pair) as directed Dx: NIDDM/Polyneuropathy (E11.42), Hammertoe Foot Deformity (M20.41,M20.42), Preulcerative Skin Lesion(s) (L85.1 Active Atorvastatin Calcium 40 MG 1 tablet Orally Once a day Active Enbrel Active Zepbound 10 MG/0.5ML 0.5 mL Subcutaneous Active Folic Acid 1 MG 1 tablet Orally Once a day Active Levothyroxine Sodium 25 MCG 1 tablet in the morning on an empty stomach Orally Once a day Not-Taking Vitamin D3 25 MCG (1000 UT) 1 capsule Orally Once a day Not-Taking Etanercept Not-Takin g Trulicity 0.75 MG/0.5ML as directed Subcutaneous Not-Taking Social History Tobacco Use: Social History Observation Description Date Details (start date - stop date) Never Smoker NA - NA Tobacco Use/Smoking Question Answer Notes Are you a: nonsmoker Tobacco use other than smoking: Question Answer Notes Are you an other tobacco user? No AUDIT-C (Standard) Question Answer Notes Did you have a drink containing alcohol in the p ast year? No Points 0 Interpretation Negative Vital Signs Height 5ft 9in in 05/13/2025 Weight 300 lbs 05/13/2025 BMI 44.312 kg/m2 05/13/2025 Procedures Procedure Date Ordered Date Performed Result Body Sit e 48759-ZSQHUDT NAIL, 1-5 05/13/2025 N/A 75669-IGZP SKIN LESIONS, OVER 4 05/13/2025 N/A [id number] DYSTROPHIC NAILS ANY # 05/13/2025 N/A Encounters Encounter Location Date Provider Diagnosis [facility] [address] [address] 05/13/2025 Austin Munguia Type 2 diabetes mellitus with diabetic polyneuropathy E11.42 ; Other hammer toe(s) (acquired), right foot M20.41 ; Other hammer toe(s) (acquired), left foot M20.42 ; Onychomycosis B35.1 and Plantar fasciitis of left foot M72.2 Assessments Encounter Date Diagnosis (ICD Code) Assessment Notes Treatment Notes Treatment Clinical Notes Section Notes 05/13/2025 Type 2 diabetes mellitus with diabetic polyneuropathy (ICD-10 - E11.42) 05/13/2025 Other hammer toe(s) (acquired), right foot (ICD-10 - M20.41) Patient Educated with: DIABETIC FOOT CARE INSTRUCTIONS. pdf (DIABETIC FOOT CARE INSTRUCTIONS. pdf) 05/13/2025 Other hammer toe(s) (acquired), left foot (ICD-10 - M20.42) 05/13/2025 Onychomycosis (ICD-10 - B35.1) 05/13/2025 Plantar fasciitis of left foot (ICD-10 - M72.2) Plan Of Treatment Medication Medication Name Sig [...] INSTRUCTIONS.pdf) Pending Test Test Name Order Date [id number] NAIL, 1-5 05/13/2025 14141-PHKA SKIN LESIONS, OVER 4 05/13/20 25 [id number] DYSTROPHIC NAILS ANY # Next Appt Details Follow Up: 1 Year, Reason: Provider Name:Austin Munguia , 05/12/2026 08:30:00 AM, [address], [address], [place], [address], Procedure Notes * Category Sub-Category Detail Notes [...] instrumentation by the physician of record - 83943 Debride Nails 1-5 Procedure: Due to the [...] necessary to maintain effective symptomatic relief - 53168 Nail Reduction Nail Reduction (-27) Trimming o [...] bed tissue - G0127 Progress Notes * Chucky TAMEZDOB:1965 (59 yo M)Acc No.[id number]:05/13/2025 Progress Note Patient: Chucky CAMERON Provider: Alen Munguia DPM :1965 A ge:59 Y S ex:Male Date:05/13/2025 Address:[address] [place], [place] [id number] Pcp:Cruz Lay Subjective: * Chief Complaints: * A t Risk FootcareToe IrritationHeel pain * HPI: A t Risk footcare: Pt States Last PCP Visit: D ate: 0 02/15/2025 T oe pain: Location: B /L feet. Duration: s everal years. Course: w orse. Aggravated by: s hoes, any pressure. Treatments: c hange in shoes. H eel pain: Location: P roximal plantar aspect of Heel, LEFT. Treatments: r est/alter normal daily activity, stretching, deep tissue massage, AFO- nightsplint. * ROS: G eneral/Constitutional: Nausea d enies. V omiting d enies. H donte Thirst d enies. L oss appetite d enies. C hills d enies. F atigue d enies.?Fever d enies. N ight Sweats d enies. U nexplained weight loss d enies. U nexplained weight gain d enies. H EENTM: Dentures d enies. D izziness d enies. G lasses/contacts a dmits. R etinopathy d enies. B lurred/double vision d enies. T MJ?denies. D ischarge/drainage d enies. I mplants d enies. S ore throat d enies. D ental implants d enies. H damaris of hearing a dmits. D ifficulty chewing/swallowing/speaking d enies. N ose bleeds d enies. S ore mouth d enies. ? R espiratory: On Oxygen d enies. P neumonia/pleurisy d enies.?Bronchitis d enies. E mphysema d enies. C oughing d enies. C ough blood?denies. S hortness of breath d enies. W heezing d enies. C ardiovascular: Pacemaker d enies. M LOCATION MAN d enies. W PW d enies. C HF d enies. H eart attack d enies. S eptal defect d enies. R apid beat d enies. C hest pain d enies. A trial Fib. d enies. M urmur/Palpitations d enies. G astrointestinal: Hemorrhoids d enies. S tomach/Abdominal pain d enies. D ark blood stool d enies. I rritable bowel d enies. C onstipation d enies. D iarrhea d enies. H ematology: Swelling d enies. C lots d enies. V aricose Veins d enies. B ruising d enies. B leeding problem d enies. G enitourinary: Blood urine d enies. F requent/Painfu/urination/bladder control d enies. K idney stones d enies. I nfection (UTI) d enies. N ephropathy d enies. s ex trans dis (STD) d enies. P rostate d enies. M usculoskeletal: Hammertoes a dmits. B unions d enies. B ack Pain d enies. M uscle Cramps/ Resting a dmits. M uscle cramps / walking a dmits.?Generalized aches and pains a dmits. W eakness a dmits. I nteg.: Sosa d enies. S cars d enies. C orns/calluses?admits. I ngrown nails a dmits. P ainful nails d enies. O pen Sores d enies. R ashes a dmits. N eurologic: Difficulty sleeping d enies. B rain disorder d enies. N umbness a dmits. B alance trouble a dmits. C onfusion d enies. F ainting/blackouts d enies. T ingling a dmits. T remors d enies. * Medical History: * Surgical History: g astrectomy sleeve right shoulder replacement arthroscopic knee surgery colonoscopy knee replacement, left nee replacement right 09/08/24 * Hospitalization/Major Diagno stic Procedure: N o Hospitalization History. * Family History: M other: alive, diagnosed with Unspecified heart disease, Unspecified cerebral artery occlusion with cerebral infarction. F ather: , kidney/liver disease, foot problems, poor circulation, diagnosed with Diabetic - NIDDM, Unspecified essential hypertension, Family history of arthritis. * Social History: T obacco Use: T obacco Use/Smoking A re you a: n onsmoker Tobacco use other than smoking A re you an other tobacco user? N o D rugs/Alcohol: D rugs H ave you used drugs other than those for medical reasons in the past 12 months? N o M iscellaneous: C affeine: yes. Exercise: yes, gym, swimming, cycling. Marital status: single. Occupation: Disabled, works a little. D rug/Alcohol: A LUÍS-C (Standard) D id you have a drink containing alcohol in the past year? N o P oints 0 I nterpretation N egative * Medications: T akingZepbound 10 MG/0.5ML Solution Auto-injector 0.5 mL Subcutaneous Atorvastatin Calcium 40 MG Tablet 1 tablet Orally Once a day Enbrel Folic Acid 1 MG Tablet 1 tablet [...] Foot Deformity (M20.41,M20.42), Preulcerative Skin Lesion(s) (L85.1 buPROPion HCl 100 MG Tablet 1 tablet Orally Twice a day hydrOXYzine HCl 25 MG Tablet 1 tablet as needed Orally Once a day Night Splint AFO - L1930 1 wear at rest Taking Zepbound 10 MG/0.5ML Solution Auto-injector 0.5 mL Subcutaneous Taking Atorvastatin Calcium 40 MG Tablet 1 tablet Orally Once a day Taking Enbrel Taking Folic Acid 1 MG Tablet 1 [...] Deformity (M20.41,M20.42), Preulcerative Skin Lesion(s) (L85.1 Taking buPROPion HCl 100 MG Tablet 1 tablet Orally Twice a day Taking hydrOXYzine HCl 25 MG Tablet 1 tablet as needed Orally Once a day Taking Night Splint AFO - L1930 1 wear at rest Not-Taking/PRNOzempic (1 MG/DOSE) Trulicity 0.75 MG/0.5ML Solution Pen-injector as directed Subcutaneous Vitamin D3 25 MCG (1000 UT) Capsule 1 capsule Orally Once a day Etanercept Levothyroxine Sodium 25 MCG Tablet 1 tablet in the morning on an empty stomach Orally Once a day Medication List reviewed and reconciled with the patientNot- Taking/PRN Ozempic (1 MG/DOSE) Not-Taking/PRN Trulicity 0.75 MG/0.5ML Solution Pen-injector as directed Subcutaneous Not-Taking/PRN Vitamin D3 25 MCG (1000 UT) Capsule 1 capsule Orally Once a day Not-Taking/PRN Etanercept Not-Taking/PRN Levothyroxine Sodium 25 MCG Tablet 1 tablet in the morning on an empty stomach Orally Once a day Medication List reviewed and reconciled with the patient * Allergies: P enicillins: difficulty breathingFish-derived Products: swellingyes[Allergies Verified] Objective: * Vitals: H t: 5ft 9in, Wt:300, BMI:44.312, Shoe size: 12, Ht-cm: 175.26 cm, Wt-k.08 kg. * P ast Orders: L ab:HEMOGLOBIN A1C (GLYCOHEMOGLOBIN) (Order Date - 01/25/2025) (Collection Date & Time - 01/26/2025 08:39 AM) Value Reference Range HEMOGLOBIN A1C % (HH) 6.0 * Examination: O phthalmology Referral: DIABETES EYE EXAM P rocedure Performed: Hannah Sparks ate of Exam Performed 1 06/12/2024 D iabetic Retinopathy Screening: Y samreen R etinal Screening Performed: Y samreen Mclaughlin indings of Diabetic Eye Exam: n o retinopathy N eurological: SENSORY: P t relates , paresthesia , tingling , at rest , especially in the evening , B/L, N eurological exam demonstrates a loss of protective sensation by an absence of tested sensitivity to 5.07 [place] monofilament at 2 or more sites out of 5 total locations, each foot. N ails: NAILS are: E longated, overgrown, dystrophic, lytic, greater than 3mm thick, discolored and friable with crumbly malodorous subungual debris, ( T A, T1, T5 ), all other nails not described with characteristics as possessing mycosis are elongated, overgrown, and dystrophic ( T2, T3, T4, T6, T7, T8, T9). D ermatologic: SKIN FINDINGS: S kin exam reveals Keratotic lesion(s) located at , SUB MTH (s) , 1 , B/L , SUB MTH (s) , 2 , B/L , SUB MTH (s) , 3 , B/L , SUB MTH (s) , 4 , B/L , Plantar, Heel(s) , B/L. O rthopedic: MUSCLE STRENGTH: 5 /5 all groups in a symmetrical fashion, B/L. FOOT MORPHOLOGY: P es Planus structure, (-) Charcot collapse/destruction noted at MTJ. DIGITAL DEFORMITIES: D igital contracture, PIPJ, 2-5 B/L, incompl-reducible to non-reducible (2nd toes, B/L), with WB or to push-up test, push-up test, no over, nor underlapping, with evidence of shoe producing skin irritation. FOOTWEAR EVALUATION: w orn, non-supportive, shoe gear properties exacerbate patient's foot/toe deformity , shoe gear properties exacerbate patients foot/toe deformity. H eel Pain: INSPECTION: A pproximately 70-80 percent LESS, Pain on Palpation to Plantar Fascia med. and central bands, intrinsic musc., infra-calcaneal bursa, and med calc tubercle , LEFT foot. V ascular: DP PULSES (B): 2 /4, B/L. PT PULSES (B): 2 /4, B/L. CAPILLARY FILL TIME: i mmediate, all digits, B/L. TROPHIC CONDITION-TEXTURE/ELASTICITY/TURGOR/HAIR GROWTH (B):?normal, B/L. TEMPERTURE GRADIENT (C): n ormal, warm to cool, proximal to distal, B/L, B/L. PIGMENTATION: n ormal, B/L. EDEMA (C): a bsent, B/L. G eneral Examination: GENERAL APPEARANCE: Odilia trinh a pleasant, alert, well nourished, well-developed, well hydrated individual, who demonstrates proper attention to hygiene/body habitus, and is in no acute distress, Pt serves as own historian for office visit today. ORIENTED: p erson, place, and time. FOOT EXAM: L ower Extremity Neurological Exam performed:?Yes V isual exam of foot performed: Y es D ate 1 07/14/2024 Footwear Evaluation F ootwear Evaluation performed: Y es Assessment: * Assessment: 1. O ther hammer toe(s) (acquired), right foot - M20.41 S pecify :Chronic problem, Worse (4), Rx Management (4) 2 . T ype 2 diabetes mellitus with diabetic polyneuropathy - E11.42 (Primary) 3. O ther hammer toe(s) (acquired), left foot - M20.42 S pecify :Chronic problem, Worse (4), Rx Management (4) 4 . O nychomycosis - B35.1 5 . P lantar fasciitis of left foot - M72.2 S pecify :Acute problem, Stable, Response to treatment - Improvement Plan: * Treatment: 2. O ther hammer toe(s) (acquired), right foot Start Extra Depth Orthopedic Shoes (1 Pair) with Customized Heat Molded Multidensity Innersoles (3 Pair), as directed, Dx: NIDDM/Polyneuropathy (E11.42), Hammertoe Foot Deformity (M20.41,M20.42), Preulcerative Skin Lesion(s) (L85.1, 1, Refills 0. Notes: Patient Educated with: DIABETIC FOOT CARE INSTRUCTIONS.pdf (DIABETIC FOOT CARE INSTRUCTIONS.pdf) * Procedures: D pabloride Nails 1-5: Procedure: D ue to the clinical pathology outlined in the exam findings, performance of this nail treatment is medically necessary as its management by an unskilled/untrained nonprofessional would put this patients foot and overall health at risk. Therefore, debridement to affected nail(s), as described in exam ( T A, T 1, T 5), was performed exclusively by the physician of [...] necessary to maintain effective symptomatic relief - 94749. K eratoma Treatment: Parring or Cutting of Benign Hyperkeratotic Lesion(s) ( -57) More than 4 Lesions - Due to [...] stated and described in the exam ( S UB MTH (s) , 1 , B /L , S UB MTH (s) , 2 , B /L , S UB MTH (s) , 3 , B /L , S UB MTH (s) , 4 , B /L , P lantar, H eel(s) , B /L), were pared, and/or cut utilizing a sterile 15 blade, tissue nippers, and/or power dremel instrumentation by the physician of record - 12446. N ail Reduction: Nail Reduction ( -27) Trimming of all dystrophic nails - Due to the at risk nature of the patients medical condition as documented in the exam findings, performance of this nail treatment is medically necessary as its management by an unskilled/untrained nonprofessional would put this patients foot and overall health at risk. Therefore, the dystrophic nails, in locations as stated and described in the exam ( T 2, T3, T4, T6, T7, T8, T9), were debrided by the phisician of record to reduce/remove overall nail length and girth, by manual and electrical means with use of a nail nipper and/or dremel, to more viable healthy nail plate or bed tissue - G0127. * Procedure Codes: 1 1057 TRIM SKIN LESIONS, OVER 4, Modifiers: XS 33997 DEBRIDE NAIL, 1-5, Modifiers: XS G0127 TRIMMING DYSTROPHIC NAILS ANY #, Modifiers: XS * Preventive Medicine: Counseling: D iscussion: - 14: Office or other outpatient visit for the [...] have encouraged the patient to call the office. A t Risk Diabetic/ASO/PVD Footcare: T he patient was advised against self nail/callus care due to inherent risks for infection, loss of limb/life given, diabetes, neuropathy. D igital Surgery: D igital surgery was discussed with the patient, We elected to try conservative treatment at the present time, due to the patients medical history and increased asssociated post-operative risks. D igital Treatment: H T- I explained to the patient the possible [...] success were answered to their verbally confirmed satisfaction. H eel pain: D iscussed other tx options for the patients condition, Given recent successful results to treatment, the patient wishes to continue with the present plan for their condition. S hoe Gear Counseling: S HOE Rx - The patient was counseled in [...] 3 pair of custom heat-molded inserts was dispensed. Screening/Special Tests: F all Risk Screening: N o falls in the past year F ALLS: Screening for Future Fall Risk Have you had any falls with injury in the past year? N o * Follow Up: 1 Year * Images: * Sign off status: Completed true * Provider: Alen Munguia DPM Date: 07/14/2024 Generated for Amanda wyman/Frank/Magi on: 07/19/2024 01:01 PM EST History and Physical Notes * HPI (History of Present Illness) Category Sub-Category Detail Notes Category Not es Heel pain Location: Proximal plantar aspect of H eel, LEFT Treatments: rest/alter normal da maddie activity, stretching, deep tissue massage, AFO-nightsplint Toe pain Location: B/L feet Duration: several years Course: worse Aggravated by: shoes, any pressure Treatments: change in shoes At Risk footcare Pt States Last PCP Visit: Date:: 02/16/20 25 Examination Category Sub-Category Detail Notes Category Not es Neurological SENSORY: Pt relates , par esthesia , tingling , at rest , especially in the evening , B/L, Neurological exam demonstrates a loss of protective sensation by an absence of tested sensitivity to 5.07 [place] monofilament at 2 or more sites out of 5 total locations, each foot Dermatologic SKIN FINDINGS: Skin exam reveal s [...] Lower Extremity Neurological Exa m performed:: Yes Visual exam of foot performed:: Yes Date: 05/13/2025 ORIENTED: person, place, and t [place] Footwear Evaluation Footwear Evaluation performe d:: Yes Ophthalmology Referral DIABETES EYE EXAM Procedure Perform ed:: Yes Date of Exam Performed: 04/12/2025 Diabetic Retinopathy Screening:: Yes Retinal Screening Performed:: [...] and friable with crumbly malodorous subungual debris, ( TA, T1, T5 ), all other nails not described with characteristics as possessing mycosis are elongated, overgrown, and dystrophic ( T2, T3, T4, T6, T7, T8, T9) Heel Pain INSPECTION: Approximately 70 -80 percent LESS, Pain on Palpation to Plantar Fascia med. and central bands, intrinsic musc., infra-calcaneal bursa, and med calc tubercle , LEFT foot
--- NOTE | 2025-05-18 11:38 | MHC.OFFVIS ---
Vital Signs 05/18/25 11:41 Height 5 ft 8 in Weight 310 lb BMI 47.1 BP 140/72 H Blood Pressure Location Rt radial Position Sitting Pulse 85 Intake Visit Reasons: Follicular cyst of the skin and subcutaneous tissu Intake Note: Patient referred by PCP Matthew Lay for assessment of cyst on Rt waist line. Hx of previous cyst removed on belt line not sure if same area. Patient c/o tenderness, irritated when rubbing against pants. Explosive Man Required: No Accompanied by: Self / Same As Patient Allergies Penicillins (PENICILLINS) Allergy (Severe, Verified 05/18/25 11:47) DIFFICULTY BREATHING Fish Containing Products Allergy (Intermediate, Verified 05/18/25 11:47) swollen Medication List - Last Reconciled 05/18/25 by Tyrone Aguilar MD acetaminophen ER (Tylenol Arthritis Pain) 650 mg PO Q12H 90 days atorvastatin 20 mg PO DAILY 90 days blood pressure test kit-large As directed blood pressure test kit-wrist As directed blood sugar diagnostic (FreeStyle Lite Strips) As directed blood-glucose meter (FreeStyle Lite Meter kit) As directed bupropion HCl SR 100 mg PO QAM cholecalciferol (vitamin D3) 25 mcg PO DAILY 90 days [diabetic shoes As directed] Enbrel SureClick (etanercept) 50 mg subcut QWEEK NS folic acid 1 mg PO DAILY ibuprofen 600 mg PO Q8H PRN lancets (FreeStyle Lancets) As directed losartan 50 mg PO DAILY metformin 1,000 mg (2 x 500 mg) PO BID 90 days methotrexate sodium 15 mg (6 x 2.5 mg) PO QWEEK 90 days ckkgzbriasox-zulnxljc-irzrrm (Multivitamin 50 Plus tablet) 1 tab PO DAILY omeprazole 40 mg PO DAILY tirzepatide (weight loss) (Zepbound) 7.5 mg (0.5 mL) subcut QWEEK 4 weeks Held on 04/26/25. Instructions: Doctor's Order tirzepatide (weight loss) (Zepbound) 10 mg (0.5 mL) subcut QWEEK 4 weeks tramadol 50 mg PO Q6H PRN 7 days HPI Comments Details: Patient reports a several week history of an irritating skin lesion involving his right a belt line. He denies any trauma or instrumentation to the region although he goes on to say ?you guys to call if 1 on the other side while back?. He denies any fevers or chills or nausea or vomiting. He denies any significant past surgical history apart from a remote sleeve gastrectomy. [facility] Medical History Long-term use of immunosuppressant medication Screening examination for infectious disease Psoriatic arthritis COVID-19 Type 2 diabetes mellitus Vitamin D deficiency Psoriasis Hypercholesterolemia Bipolar disorder Depression Rheumatoid arthritis LENNOX (generalized anxiety disorder) HTN (hypertension) DMII (diabetes mellitus, type 2) Surgical History (Updated 05/18/25 @ 11:56 by Tyrone Aguilar MD) Skin lesion Total knee replacement status H/O knee surgery History of sleeve gastrectomy History of right shoulder replacement H/O arthroscopy of knee History of colonoscopy Family History Father Diabetes Dialysis patient Mother Hypertension Heart problem Social History Housing: House Alcohol intake: never Patient Tobacco Use Status: Never used Tobacco Tobacco use type: Cigarette e-Cigarette/Vaping Use: Never Used Second Hand Smoke Exposure: No service: No Current occupational status: unemployed Cognitive needs: No Hearing needs: No Vision needs: Yes Review of Systems Const All systems reviewed & are unremarkable except as noted in HPI and below Physical Exam Vital Signs: Last Vital Signs Pulse 85 05/18/25 11:41 BP 140/72 H 05/18/25 11:41 BMI result Body Mass Index 47.1 Const General: cooperative, healthy appearing and comfortable Nutritional Appearance: obese morbidly obese Orientation/consciousness: oriented to person, oriented to place and oriented to time HEENT Head: Yes normal to inspection, Yes No palpable skull fracture present and Yes normocephalic Ears: hearing grossly normal bilaterally General nose exam: Normal external nose present Eyes Pupils: Equal, round and reactive pupils present EOM: EOMs intact bilaterally Neck Neck: Yes normal visual inspection Chest Chest palpation & inspection: normal inspection of the chest Resp Effort & Inspection: normal respiratory effort and able to speak in complete sentences Cardio Rate: regular rate Rhythm: regular rhythm GI Inspection: Yes normal to inspection Skin Other: Left lateral abdominal maculopapular discoloration. Approximate 6 x 8 in patch ?that is a birthmark?. In the right waistline with the patient indicated he had a irritating lesion none is present. ?oh wow, it fell off. Well I guess the issue fixed itself. It was irritating as hell for awhile. ? Neuro General: oriented to person, oriented to place and oriented to time Cranial nerves: Yes Equal, round and reactive pupils present Assessment & Plan Assessment & Plan (1) Subcutaneous cyst: Code(s): L72.9 - Follicular cyst of the skin and subcutaneous tissue, unspecified Category: Medical Plan: I told the patient that we would see him back in approximately 6 months to monitor for recurrence of his skin lesion issue. He was encouraged to contact us should he have any questions or problems in the meantime. He said he was very happy with that plan. Coding Level of Care Code New Pt Level 3 (99015) Diagnoses Subcutaneous cyst L72.9 Time Spent (min) 30 Comment Record review, patient visit and coordination of care time
[2025-05-18 11:41] VITALS: BP 140/72; PULSE 85; BMI 47.1
--- OUTSIDE RECORDS SUMMARY | 2025-05-18 13:01 | XMS_ITS | Patient Health Record ---
Author Organization [facility] Address [address] [place] [address] Care Team Providers Care Repairer Screen Crusher Name Role Phone Cruz Lay Primary Care Provider Unavailab Austin Woo Unavailable [phone] Allergies Allergen (clinical drug ingredient) Drug/Non Drug [...] Lab: Notes/Report: HEMOGLOBIN A1C % (HH) 6 HEMOGLOBIN A1C (GLYCOHEMOGLO BIN) Reviewed date:05/13/2025 08:40:16 AM Interpretation: Performing Lab: Notes/Report: HEMOGLOBIN A1C % (HH) 6.0 Reason For Referral No Information Medications Medication SIG (Take, Route, Frequency, Duration) Notes Start Date End Date Status Omeprazole 40 MG 1 capsule 30 minutes before morning meal Orally Once a day Active Losartan Potassium 50 MG 1 tablet Orally Once a day Active Multivitamin Adults 50+ Active Levothyroxine Sodium 25 MCG 1 tablet in the morning on an empty stomach Orally Once a day Not-Taking Ozempic (1 MG/DOSE) Not-Taking Atorvastatin Calcium 40 MG 1 tablet Orally Once a day Active buPROPion HCl 100 MG 1 tablet Orally Twi ce a day Active Enbrel Active hydrOXYzine HCl 25 MG 1 tablet as needed Orally Once a day Active Zepbound 10 MG/0.5ML 0.5 mL Subcutaneous Active Methotrexate Sodium 2.5 MG as directed Orally Active Vitamin D3 25 MCG (1000 UT) 1 capsule Orally Once a day Not-Taking metFORMIN HCl 500 MG 1 tablet with a krystal l Orally Once a day Active Etanercept Not-Takin g Folic Acid 1 MG 1 tablet Orally Once a day Active Night Splint AFO - L1930 1 wear at rest; Duration: 30 days Active Ibuprofen 600 MG 1 tablet with food o r milk as needed Orally Three times a day Active Trulicity 0.75 MG/0.5ML as directed Subcutaneous Not-Taking Extra Depth Orthopedic Shoes (1 Pair) with Customized Heat Molded Multidensity Innersoles (3 Pair) as directed Dx: NIDDM/Polyneuropathy (E11.42), Hammertoe Foot Deformity (M20.41,M20.42), Preulcerative Skin Lesion(s) (L85.1 Active Immunizations Vaccine Route Administration Date Status [...] Problem Acquired hammer toe of right foot (1096636283831538 ) Other hammer toe(s) (acquired), right foot (M20.41) Active confirmed Problem Acquired hammer toe of left foot (3976475793974212 ) Other hammer toe(s) (acquired), left foot (M20.42) Active confirmed Problem Polyneuropathy due to type 2 diabetes mellitus (167053857) Type 2 diabetes mellitus with diabetic polyneuropathy (E11.42) Active confirmed Problem Plantar fasciitis of left foot (6429747460484157 1) Plantar fasciitis of left foot (M72.2) Active confirmed Problem Interstitial myositis (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) 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) Active confirmed Vital Signs Heart Rate 80 /min 11/05/2024 Blood pressure diastolic 99 mm Hg 11/05/2024 Height 5ft 9in in 05/13/2025 Blood pressure systolic 146 mm Hg 11/05/2024 Weight 300 lbs 05/13/2025 BMI 44.312 kg/m2 05/13/2025 Procedures Procedure Date Ordered Date Performed Result Body Sit e 97681-LBARYTH NAIL, 1-5 05/13/2025 N/A 92776-AJUK SKIN LESIONS, OVER 4 05/13/2025 N/A [id number] DYSTROPHIC NAILS ANY # 05/13/2025 N/A Encounters Encounter Location Date Provider [facility] [address] 11/05/2024 Austin Munguia Pain in left foot M79.672 ; Plantar fasciitis of left foot M72.2 ; Calcaneal spur, left foot M77.32 ; Interstitial myositis of left foot M60.172 and Bursitis of left foot M77.[address] [place] [address] [address] 05/13/2025 Austin Munguia Type 2 diabetes mellitus with diabetic polyneuropathy E11.42 ; Other hammer toe(s) (acquired), right foot M20.41 ; Other hammer toe(s) (acquired), left foot M20.42 ; Onychomycosis B35.1 and Plantar fasciitis of left foot M72.[address] [address] 11/05/2024 Austin Munguia Assessments Encounter Date Diagnosis (ICD Code) Assessment Notes Treatment Notes Treatment Clinical Notes Section Notes 11/05/2024 Pain in left foot (ICD-10 - M79.672) 11/05/2024 Plantar fasciitis of left foot (ICD-10 - M72.2) Patient Educated with: HEEL CORD STRETCHES.pdf (HEEL CORD STRETCHES.pdf ) Patient Educated with: RICE THERAPY.pdf (RICE THERAPY.pdf) 05/13/2025 Other hammer toe(s) (acquired), right foot (ICD-10 - M20.41) Patient Educated with: DIABETIC FOOT CARE INSTRUCTIONS. pdf (DIABETIC FOOT CARE INSTRUCTIONS. pdf) 05/13/2025 Type 2 diabetes mellitus with diabetic polyneuropathy (ICD-10 - E11.42) 05/13/2025 Other hammer toe(s) (acquired), left foot (ICD-10 - M20.42) 11/05/2024 Calcaneal spur, left foot (ICD-10 - M77.32) 05/13/2025 Onychomycosis (ICD-10 - B35.1) 11/05/2024 Interstitial myositis of left foot (ICD-10 - M60.172) 05/13/2025 Plantar fasciitis of left foot (ICD-10 - M72.2) 11/05/2024 Bursitis of left foot (ICD-10 - M77.52) Plan Of Treatment Pending Test Test Name Order Date X ray : Foot, left 3V 11/05/2024 62759-IHBYZKS NAIL, 1-5 05/13/2025 70708-BTGHTMI NAIL, 1-5 05/13/2024 18089-EDPL SKIN LESIONS, OVER 4 05/13/20 24 46348-MLRB SKIN LESIONS, OVER 4 05/13/20 25 [id number] DYSTROPHIC NAILS ANY # [id number] DYSTROPHIC NAILS ANY # Next Appt Details Provider Name:Austin Jeannine Munguia , 05/12/2026 08:30:00 AM, [address] [address], [place], [address], Insurance Providers Payer Name Payer Address Payer Phone Subscriber Number Group Number Insured Name Patient Relationship to Insured Coverage Start Date Coverage End Date [facility] [employer] Claims [address] [place] [id number] Chucky Abarca Self - patient is the [...]
--- OUTSIDE RECORDS SUMMARY | 2025-05-18 13:01 | XMS_ITS | Clinical Summary ---
Author Organization [facility] Address [address] [address] Phone Care Team Providers Care Stencil Machine Operator Name Role Phone Cruz Lay [...] COLONOSCOPY 2009 RSV VACCINE (1 - Risk 50-74 years 1-dose series) 2014 INFLUENZA VACCINE (#1) 2024 HEPATITIS A VACCINES [...] MEDICARE REPLACEMENT MEDICARE PART A & B [facility] MEDICARE REPLACEMENT MEDICARE PART A & B [facility] CARE MEDICARE REPLACEMENT MEDICARE PART A & B [facility] ONE CARE MEDICARE REPLACEMENT MEDICARE PART A & B [facility] CARE MEDICARE REPLACEMENT MEDICARE PART A & B [facility] ONE CARE MEDICARE REPLACEMENT Care Teams Stencil Machine Operator Relationship Specialty Start Date End Date Cruz Lay PA [address] [place] [address] PCP - General Physician Renal Dialysis Rn 01/02/23 Additional Source Comments The information contained in this document represents components of the legal health record. It is not the complete legal health record.[facility]
--- OUTSIDE RECORDS SUMMARY | 2025-05-18 13:01 | XMS_ITS | Clinical Summary ---
Author Organization [address] [facility] Address [address] [place] [address] Phone Care Team Providers Care Television Analyzer Name Role Phone Mario Palmer DO Primary Care Provider [phone] Allergies No known active allergies Active Problems [...] Health Maintenance Due Date Last Done Comments Colorectal Cancer Screening: Colonoscopy 1964 Diabetes: Annual GFR (Glomer ular Filtration Rate) 1964 Diabetes: Annual Foot Exam 1974 Diabetes: Annual Retina Eye Exam 1974 DTaP,Tdap,and Td Vaccines (1 - Tdap) 11/01/1983 Pneumococcal Vaccine: 50+ Ye ars (2 of 2 - PCV) 2014 09/12/2012 RSV Immunization Adult Patie nts (1 - Risk 50-74 years 1-dose series) 2014 Zoster Vaccines (2 of 2) 03/29/2021 02/01/2021 Cholesterol Screening (Lipid Panel) 04/20/2024 HIV Screening 04/20/2024 Hepatitis C Screening 04/20/2024 Social Influencers of Health Screening 04/20/2024 Depression Screening 05/27/2024 Diabetes: Annual Urine Albumin-Creatinine Ratio (uACR) 07/01/2024 Diabetes: Blood Sugar Contro l Test (HGBA1C) 07/01/2024 Hypertension/CHF/CAD Annual BMP Blood Test 07/01/2024 COVID-19 Vaccine (1 - 2024-2 6 season) 2025 Influenza Vaccine (#1) 2025 02/15/2022 HIB Vaccines [...] topic Insurance MEDICAID - [place] Care Teams Television Analyzer Relationship Specialty Start Date End Date Mario Palmer DO [address] [address] PCP - General Family Medicine 04/27/24
== END 2025-05-18 11:54 | disposition home or self-care (01) ==
LOC: HO.HGS 11:38
PROVIDERS: PCP Physician Assistant; Visit Provider Surgery
DX: L72.9 Follicular cyst of the skin and subcutaneous tissue, unspecified (principal)
CPT/HCPCS: 99203

== ENCOUNTER → 2025-05-18 11:37 | Outpatient (BNVA) | payer OTHER, SELFPAY | PROVIDERS: PCP Physician Assistant; Visit Provider Surgery | DX: L72.9 Follicular cyst of the skin and subcutaneous tissue, unspecified (principal) | CPT/HCPCS: 99202 ==